=== PATIENT | male | born 1960 | race Caucasian/White ===

== ENCOUNTER 2021-08-21 08:00 | Inpatient (IN) ==
[2021-08-15 11:59] LABS: Basophils # (Auto) 0.07 K/mcL (0.00-0.30); Basophils % (Auto) 1.2 % (0.0-2.0); Eosinophils # (Auto) 0.22 K/mcL (0.00-0.70); Eosinophils % (Auto) 3.8 % (0.0-7.0); Hematocrit 43.7 % (40.1-51.0); Hemoglobin 15.4 g/dL (13.7-17.5); Lymphocytes # (Auto) 2.16 K/mcL (1.50-4.80); Lymphocytes % (Auto) 37.7 % (15.5-49.0); Mean Corpuscular HGB Conc 35.2 g/dL (31.0-36.0); Mean Platelet Volume 10.1 fL (7.4-10.4); Monocytes # (Auto) 0.63 K/mcL (0.10-0.90); Neutrophils % (Auto) 46.3 % (38.0-78.0); Platelet Count 203 K/mcL (140-440); RBC 4.55 M/mcL (4.63-6.08); Red Cell Distribution Width 13.6 % (11.5-14.5); WBC 5.7 K/mcL (4.5-11.0)
[2021-08-15 12:45] LABS: INR 0.9 (0.9-1.1); Prothrombin Time 12.9 sec (11.9-14.5)
[2021-08-15 14:22] LABS: Appearance,Urine CLEAR (Clear); Bilirubin,Urine Negative (Negative); Color,Urine YELLOW; Culture Indicated,Urine No; Glucose,Urine (UA) Negative (Negative); Ketones,Urine Negative (Negative); Leukocyte Esterase,Urine Negative /uL (Negative); Nitrate,Urine Negative (Negative); Protein,Urine Negative (Negative); Specific Gravity,Urine 1.012 (1.000-1.035); Urine Blood Negative (Negative); Urobilinogen,Urine Negative
[2021-08-15 14:35] LABS: Blood Urea Nitrogen 13 mg/dL (8-23); Calcium 8.8 mg/dL (8.6-10.4); Carbon Dioxide 24 mmol/L (22-30); Chloride 105 mmol/L (96-108); Glomerular Filtration Rate 71; Glucose 80 mg/dL (70-105)
--- NOTE | 2021-08-16 20:53 | EKG ---
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
[~2021-08-21 08:00] MED LIST: 0.9 % SODIUM CHLORIDE 250 ML IV SCH; ACETAMINOPHEN 500 MG TABLET PO SCH; CELECOXIB 200 MG CAPSULE PO SCH; PREGABALIN 75 MG CAPSULE PO SCH; ceFAZolin 3 GM in DEXTROSE 5% IN WATER 50 ML IV SCH; oxyCODONE 10 MG TAB.ER.12H PO SCH
[2021-08-21] MEDS ORDERED: TRANEXAMIC ACID 1,000 MG/10 ML VIAL ONE (08:14)
[2021-08-21] MEDS ORDERED: ePHEDrine 50 MG/5 ML SYRINGE (ANEST) IV ONE (08:14)
[2021-08-21] MEDS ORDERED: ROCURONIUM 10 MG/ML ML IV ONE (08:14)
[2021-08-21] MEDS ORDERED: GLYCOPYRROLATE 0.2 MG/ML VIAL IV ONE (08:14)
[2021-08-21] MEDS ORDERED: KETAMINE 50 MG/ML Syringe (ANEST) IV ONE (08:14)
[2021-08-21] MEDS ORDERED: MAGNESIUM SULFATE 2 GM/50 ML BAG IV ONE (08:14)
[2021-08-21] MEDS ORDERED: ONDANSETRON 4 MG/2 ML VIAL ONE (08:14)
[2021-08-21] MEDS ORDERED: ROPIVACAINE HCL/PF 20 ML VIAL IJ ONE (08:14)
[2021-08-21] MEDS ORDERED: SUGAMMADEX SODIUM 200 MG/2 ML VIAL IV ONE (08:14)
[2021-08-21] MEDS ORDERED: METOPROLOL TARTRATE 5 MG/5 ML VIAL IV ONE (08:14)
[2021-08-21] MEDS ORDERED: DEXAMETHASONE 4 MG/ML VIAL ONE (08:14)
[2021-08-21] MEDS ORDERED: PROPOFOL 200 MG/20 ML VIAL IV ONE (08:14)
[2021-08-21] MEDS ORDERED: LIDOCAINE HCL/PF 100 MG/5 ML SYRINGE IV ONE (08:14)
[2021-08-21] MEDS ORDERED: METOCLOPRAMIDE 10 MG/2 ML VIAL IV PRN (11:48)
[2021-08-21] MEDS ORDERED: LABETALOL 5 MG/ML ML IV PRN (11:48)
[2021-08-21] MEDS ORDERED: ACETAMINOPHEN 1,000 MG/100 ML BAG IV ONE (11:48)
[2021-08-21] MEDS ORDERED: NALOXONE HCL 0.4 MG/ML VIAL IV PRN (11:48)
[2021-08-21] MEDS ORDERED: fentaNYL 100 MCG/2 ML VIAL IV PRN (11:48)
[2021-08-21] MEDS ORDERED: ONDANSETRON 4 MG/2 ML VIAL IV PRN ×2 (11:48→12:48)
[2021-08-21] MEDS ORDERED: HYDROmorphone 0.5 MG/0.5 ML SYRINGE IV PRN (11:48)
[2021-08-21] MEDS ORDERED: IPRATROPIUM/ALBUTEROL 3 ML AMPUL.NEB NEB PRN (11:48)
[2021-08-21] MEDS ORDERED: ATROPINE SULFATE 0.4 MG/ML VIAL IV PRN (11:48)
[2021-08-21] MEDS ORDERED: ePHEDrine 50 MG/ML AMPUL IV PRN (11:48)
[2021-08-21] MEDS ORDERED: LACTATED RINGERS 250 ML IV PRN (11:48)
[2021-08-21] MEDS ORDERED: MEPERIDINE 25 MG/ML VIAL IV PRN (11:48)
[2021-08-21] MEDS ORDERED: METHOCARBAMOL 1,000 MG/10 ML VIAL IV PRN (11:48)
[2021-08-21] MEDS ORDERED: KETOROLAC 30 MG/ML VIAL IV PRN (11:48)
[2021-08-21] MEDS ORDERED: LACTATED RINGERS 1,000 ML IV SCH ×2 (12:00→13:00)
--- NOTE | 2021-08-21 12:47 | Discharge Plan ---
Discharge Instructions - DANI Patient Instructions Total Hip Protocol: Follow activity instructions as provided by Physical Therapy. Dressing Care: May shower in 2 days Discharge Plan Patient/Caregiver Discharge Instructions Activity: ambulate only with your walker and as instructed Diet: Regular Diet Prescriptions: No Action amlodipine 10 mg tablet 10 mg PO QDAY Qty: 90 0RF losartan 50 mg tablet 100 mg PO QHS Qty: 90 0RF (DME) C-pap and supplies See Rx Instructions .Route .MEDSUPPLY Qty: 1 0RF Rx Instructions: As directed aspirin 81 mg tablet,delayed release (DR/EC) 81 mg PO QDAY 0RF acetaminophen [Tylenol] 325 mg Tablet 650 mg PO Q6HP PRN (Reason: Per Pain Protocol/Fever > 101) Qty: 60 0RF trazodone 100 mg tablet 1 tab PO QHS PRN (Reason: Insomnia) 0RF Follow Up Plan Follow up with: Edilberto Johnston MD [Physician] - 09/05/21 8:40 am Patient Disposition: Home, Self-Care Rehab Potential: Good I certify that the patient requires SNF services: No Overall status at discharge: patient is progressing back to baseline Discharge Orders: Discharge Order (Routine); Ordered 08/21/21 Ordered By: Edilberto Johnston Discharge Comment: cc: right hip oa s/p dani
--- NOTE | 2021-08-21 12:47 | General Surgery Procedure Note ---
Date of procedure: Note initiated : 08/21/21 at 12:46 pm Service Date, if different from initiated Date: [] Pre-op diagnosis: right hip oa Post-op diagnosis: same Procedure: right anterior dani Findings: oa Anesthesia: spinal Surgeon: Edilberto Johnston Silo Erector: Sebas Forde Estimated blood loss: 200 Pathology: none sent Condition: stable Disposition: PACU
[2021-08-21] MEDS ORDERED: BISACODYL 10 MG SUPP.RECT PR PRN (12:48)
[2021-08-21] MEDS ORDERED: POLYETHYLENE GLYCOL 3350 17 GM PACKET PO PRN (12:48)
[2021-08-21] MEDS ORDERED: TRANEXAMIC ACID 1,000 MG/10 ML VIAL IV SCH (12:48)
[2021-08-21] MEDS ORDERED: MAGNESIUM HYDROXIDE 30 ML ORAL.SUSP PO PRN (12:48)
[2021-08-21] MEDS ORDERED: ONDANSETRON 4 MG ODT TABLET SL PRN (12:48)
[2021-08-21] MEDS ORDERED: FLEETS ADULT ENEMA PR PRN (12:48)
[2021-08-21 14:21] LABS: Hemoglobin 13.1 g/dL (13.7-17.5)
[2021-08-21] MEDS: KETOROLAC 30 MG/ML VIAL IV PRN (14:26)
--- NOTE | 2021-08-21 14:31 | XRay Report ---
CLINICAL INFORMATION: Right hip prostheses FINDINGS: The right hip prostheses is anatomically aligned. Pre-existing left total hip prostheses is anatomically aligned without loosening or infection. The 2 cm ossification overlying the left superior capsules previously seen.. There are no osseous abnormalities. Soft tissue swelling over the surgical site-as expected. IMPRESSION: Right hip prostheses in anatomic alignment. Interpreted and Authenticated by: Edilberto Matos 08/21/21
--- NOTE | 2021-08-21 15:06 | Operative Note ---
DATE OF OPERATION: 08/21/2021 PREOPERATIVE DIAGNOSIS: Degenerative joint disease, right hip. POSTOPERATIVE DIAGNOSIS: Degenerative joint disease, right hip. PROCEDURE: 1. Right anterior total hip arthroplasty. 2. VELYS computer navigation, right hip. SURGEON: Edilberto Johnston M.D. APPLIQUER SURGEON: Niko Forde PA-C. This providers expertise and technical skill were required throughout the case. The KAYLEIGH assisted with preoperative coordination, intraoperative retraction, wound closure, and dressing and splint application, as well as postoperative documentation and care coordination. ANESTHESIA: Spinal with LMA assist. ESTIMATED BLOOD LOSS: 250 mL. COMPLICATIONS: A nondisplaced fracture of the greater trochanter. SPECIMENS REMOVED: None DRAINS: None IMPLANTS: Biolox delta ceramic femoral head size +8.5 36 mm [place] hole eliminator PS [place] Altrex polyethylene acetabular liner neutral ACTIS DuoFix hip prosthesis cementless size 6 standard collar [place] Gription acetabular shell, 54 mm diameter INDICATIONS: The patient has had a long-standing history of worsening pain in the hip that has failed conservative treatment. Radiographs have confirmed advanced degenerative joint disease. After a long discussion about treatment options, the patient elected to proceed with an anterior total hip arthroplasty. The risks and benefits were discussed with the patient in detail including, but not limited to, the risks of anesthesia, problems with the heart or lungs related to anesthesia, infection, compromise or injury to the nerves and blood vessels, deep venous thrombosis, pulmonary embolism, pneumonia, continued pain after surgery, worsening pain or symptoms after surgery, swelling, loss of motion, instability, fracture, leg length discrepancy, and need for repeat surgery. DESCRIPTION OF PROCEDURE: The patient was seen in preanesthesia waiting room where all questions were answered and the correct side and site were identified and marked. The patient was then brought to the operating room and administered the anesthetic and given preoperative antibiotics. Anesthesia gave the patient 1 gram of tranexamic acid via an intravenous route. A timeout was then called. The patient was placed on the [place] table with all prominences well padded. The extremity was prepped and draped in the usual sterile fashion. C-arm radiographs were then taken of the pelvis and hip and transferred to [facility] for intraoperative assessment. A standard anterior approach was made. We dissected through the skin and subcutaneous tissue to the deep fascia. A self-retaining retractor was then placed. The fascia of the tensor fasciae latae was split in line with the incision and we dissected the muscle off the fascia superiorly and retracted the muscle of the tensor laterally. The fascia was then split under the rectus and the reflected head of the rectus for visualization. The lateral circumflex artery and veins were then visualized and cauterized. Two cobra retractors were placed along the femoral neck to visualize the capsule. A capsulotomy was then performed in an inverted L-shaped fashion and tagged for later repair. Cobra retractors were then placed inside the capsule and along the bone. C-arm was used to visualize the neck cut from the pre-surgical templated level off the lesser trochanter and the neck was cut with a saw and finished with an osteotome. The head was then removed. We next turned our attention to the acetabulum. Slight traction and external rotation were used on the femur to aid in visualization. Cobra retractors were placed on the acetabular rim and the labrum was excised. The fovea and ligamentum teres were also removed to visualize the medial wall. Sequential reaming was performed using direct visualization of anatomic landmarks in addition to the C-arm with VELYS for proper size, abduction, and version, while medializing the cup. A trial was placed followed by the final DePuy [place] acetabular press-fit shell, confirmed at approximately 45 degrees of abduction and 20 degrees of anteversion. The apex hole eliminator and neutral polyethylene acetabular liner were impacted, inspected, and found to be in appropriate position. Attention was next turned to the femur. Releases were performed along the medial neck and the posterior capsule along the greater trochanter to aid in visualization. The leg was dropped and adducted and retractors were placed for optimal visualization of the canal. The femoral canal was initially prepped and then broached using the DePuy Actis stem to a stable platform medial, lateral, and rotationally with the appropriate version. We then performed a calcar reaming off the broach and incised. There was a nondisplaced fracture of the greater trochanter, which was visualized. It was probed and found to be stable. I brought the leg up into reduction and then back out and it had not changed. I felt that this would be a stable fracture to watch, clinically. Trials were then placed and optimized for leg length and stability. We used fluoroscopy and the VELYS system to confirm our trials. Best stability, length, and offset characteristics were obtained with these sizes. We removed all trials and impacted the femoral stem to its broached location and placed the head. Final reduction was performed. Again, good stability, leg length, and offset characteristics were noted. VELYS was finalized to confirm our templated position. We irrigated with three liters of antibiotic saline and closed the capsule with #2 FiberWire. We closed the fascia with 0 Vicryl and the subcutaneous tissue and skin in layers out to khurram in the skin. A sterile pressure dressing was applied. All needle and sponge counts were correct. The patient was transferred to the recovery room in stable condition. TRACY:xochilt Job ID: [id number] Doc ID: [id number] Yeny Johnston MD
[2021-08-21] MEDS: 0.9 % SODIUM CHLORIDE 10 ML SYRINGE IV SCH ×2 (15:44→20:31)
[2021-08-21] MEDS: HYDROcodone/APAP 10/325MG TABLET PO PRN ×2 (16:11→20:27)
[2021-08-21] MEDS: morphine 4 MG/ML VIAL IV PRN ×2 (16:17→17:55)
[2021-08-21] MEDS: ceFAZolin 1 GM VIAL IV SCH (17:55)
--- NOTE | 2021-08-21 18:52 | XRay Report ---
CLINICAL INFORMATION: Right hip prostheses FINDINGS: Initial images from the OR show hip prostheses is anatomically aligned. Pre-existing left total hip prostheses is anatomically aligned without loosening or infection. The 2 cm ossification overlying the left superior capsules previously seen.. There are no osseous abnormalities. Soft tissue swelling over the surgical site-as expected. Total fluoroscopy time 0.5 minutes IMPRESSION: Right hip prostheses in anatomic alignment. Interpreted and Authenticated by: Edilberto Matos 08/21/21
[2021-08-21] MEDS: DOCUSATE SODIUM 100 MG CAPSULE PO SCH (20:28)
[2021-08-21] MEDS: ASPIRIN 81 MG TAB.CHEW PO SCH (20:28)
[2021-08-21] MEDS: LOSARTAN 50 MG TABLET PO SCH (20:28)
[2021-08-21] MEDS: SENNOSIDES 1 TABLET PO SCH (20:28)
[2021-08-22] MEDS: HYDROcodone/APAP 10/325MG TABLET PO PRN ×6 (02:06→21:49)
[2021-08-22] MEDS: ceFAZolin 1 GM VIAL IV SCH (02:08)
[2021-08-22] MEDS: 0.9 % SODIUM CHLORIDE 10 ML SYRINGE IV SCH ×2 (06:02→21:49)
[2021-08-22 06:42] LABS: Hemoglobin 11.1 g/dL (13.7-17.5)
--- NOTE | 2021-08-22 07:57 | Orthopedic Progress Note ---
SUBJECTIVE Subjective Patient information: Note initiated : 08/22/21 at 7:54 am Service Date, if different from initiated Date: [] Patient: Ander Ortiz 61 y/o M admitted on for Right Total Hip Arthroplasty Anterior . Chief Complaint: [Status post right total hip arthroplasty. ] Pertinent ROS: 10 point review of systems performed and is negative except for mentioned. Constitutional Vitals: Vital Signs Temp Pulse Resp BP Pulse Ox 97.5 F 71 20 133/75 95 08/22/21 07:28 08/22/21 07:28 08/22/21 07:28 08/22/21 07:28 08/22/21 07:28 Period Temp Pulse Resp BP Sys/Guevara Pulse Ox Last 24 Hr 96.6 F-98.7 F 68-86 7-20 102-164/68-91 94-100 Intake and Output 08/21/21 08/22/21 08/22/21 21:59 05:59 13:59 Intake Total 1484 800 Output Total 225 375 Balance 1259 425 Intake & Output: Intake & Output 08/21/21 08/22/21 08/22/21 21:59 05:59 13:59 Intake Total 1484 800 Output Total 225 375 Balance 1259 425 Intake: IV 74 Lactated Ringers 1,000 ml @ 20 74 mls/hr IV .Q24H [facility] Rx#: [id number] Oral 1310 800 IV - Manual Only 100 Output: Void Amount 225 375 Other: Meal Dinner Percent of Meal Consumed 100% Feeding Ability Assist with Tray Set Up OBJ DATA Labs CBC & Chem 7: 08/22/21 05:39 08/15/21 10:44 Labs: Abnormal Lab Results 08/22/21 08/21/21 05:39 13:40 Hgb 11.1 L 13.1 L Hct 32.0 L 37.0 L Meds: Medications Acetaminophen (Acetaminophen 325 Mg Tablet) 650 mg PO Q6HP PRN PRN Reason: Per Pain Protocol/Fever > 101 Hydrocodone Bitart/Acetaminophen (Hydrocodone/Apap 10/325mg Tablet) 1 - 2 tab PO Q4HP PRN; Protocol PRN Reason: Per Pain Protocol Last Admin: 08/22/21 07:37 Dose: 1 tab Documented by: Amlodipine Besylate (Amlodipine 10 Mg Tablet) 10 mg PO QDAY [facility] Aspirin (Aspirin 81 Mg Tab.Chew) 81 mg PO BID [facility] Last Admin: 08/21/21 20:28 Dose: 81 mg Documented by: Bisacodyl (Bisacodyl 10 Mg Supp.Rect) 10 mg ID Q2-3DAYS PRN PRN Reason: Constipation Docusate Sodium (Docusate Sodium 100 Mg Capsule) 100 mg PO BID [facility] Last Admin: 08/21/21 20:28 Dose: 100 mg Documented by: Ketorolac Tromethamine (Ketorolac 30 Mg/Ml Vial) 30 mg IV Q6HP PRN; Protocol PRN Reason: Per Pain Protocol Stop: 08/23/21 12:49 Last Admin: 08/21/21 14:26 Dose: 30 mg Documented by: Losartan Potassium (Losartan 50 Mg Tablet) 100 mg PO QHS [facility] Last Admin: 08/21/21 20:28 Dose: 100 mg Documented by: Magnesium Hydroxide (Magnesium Hydroxide 30 Ml Oral.Susp) 30 ml PO BIDP PRN PRN Reason: Constipation Methocarbamol (Methocarbamol 750 Mg Tablet) 750 mg PO Q6HP PRN PRN Reason: Muscle Spasm Morphine Sulfate (Morphine 4 Mg/Ml Vial) 2 - 6 mg IV Q1HP PRN; Protocol PRN Reason: Per Pain Protocol Last Admin: 08/21/21 17:55 Dose: 4 mg Documented by: Ondansetron HCl (Ondansetron 4 Mg/2 Ml Vial) 4 mg IV Q4HP PRN; Protocol PRN Reason: Nausea And Vomiting Ondansetron HCl (Ondansetron 4 Mg Odt Tablet) 4 mg SL Q4HP PRN; Protocol PRN Reason: Nausea And Vomiting Polyethylene Glycol (Polyethylene Glycol 3350 17 Gm Packet) 17 gm PO DAILYP PRN PRN Reason: Constipation Senna (Sennosides 1 Tablet) 2 tab PO HS [facility] Last Admin: 08/21/21 20:28 Dose: 2 tab Documented by: Sodium Biphosphate/Sodium Phosphate (Fleets Adult Enema) 1 dose ID Q3-4DAYS PRN PRN Reason: Constipation Sodium Chloride (0.9 % Sodium Chloride 10 Ml Syringe) 10 ml IV Q8 [facility] Last Admin: 08/22/21 06:02 Dose: 10 ml Documented by: Trazodone HCl (Trazodone Hcl 100 Mg Tablet) 100 mg PO HSP PRN PRN Reason: Insomnia A/P Narrative A/P Narrative: Patient seen and examined this a.m. Awake alert, conversant, seated at bedside. Has some expected postoperative discomfortBut feels it is well-managed on current regimen. Dressing at right lower extremity is clean and dry, somewhat disheveled we'll order dressing change today. Both lower show use are warm, well perfused and neurovascularly intact. Icepack and SCDs in place. Endorses some weightbearing and ambulation about his room. He is weightbearing as tolerated with walker for assistance. PT/OT, pain control. Plan is for expected discharge today to patient's own home where he states he has assistance with follow-up at [facility] in 10-14 days. Time Spent With Patient Time: Total time spent is greater than 50% in coordination of care (as documented) at patient's floor/unit and/or counseling patient:
[2021-08-22] MEDS: morphine 4 MG/ML VIAL IV PRN ×5 (08:30→21:44)
[2021-08-22] MEDS: amLODIPine 10 MG TABLET PO SCH (09:10)
[2021-08-22] MEDS: ASPIRIN 81 MG TAB.CHEW PO SCH ×2 (09:10→21:49)
[2021-08-22] MEDS: DOCUSATE SODIUM 100 MG CAPSULE PO SCH ×2 (09:10→21:49)
--- NOTE | 2021-08-22 09:22 | XRay Report ---
CLINICAL INFORMATION: Status post right total hip replacement. Trauma COMPARISON: None. FINDINGS: Right total hip prosthesis remains in anatomic alignment. There is now a sagittally oriented fracture through the lesser trochanteric base with displacement of the trochanteric fragment approximately 1 cm medially and anteriorly. Older left total hip fracture remains anatomically aligned. Small amount of left heterotopic ossification seen. Sacroiliac joints are normal. Soft tissues findings over the surgical site as expected. IMPRESSION: Sagittal displaced fracture of the right lesser trochanter base Interpreted and Authenticated by: Edilberto Matos 08/22/21
[2021-08-22] MEDS: METHOCARBAMOL 750 MG TABLET PO PRN (16:36)
[2021-08-22] MEDS: LACTATED RINGERS 1,000 ML IV SCH (19:19)
--- NOTE | 2021-08-22 20:09 | Orthopedic Consult Note ---
HPI Data of Consult Patient: known to practice within the last 3 years Consult date: 08/22/21 Primary Care Provider: JUAN Osborne Consult Narrative Patient Information: Note initiated : 08/22/21 at 7:49 pm Service Date, if different from initiated Date: [] Patient: Ander Ortiz 61 y/o M admitted on 08/22/21 for Right Total Hip Arthroplasty Anterior . Chief Complaint: [POD 1 Right anterior total hip arthroplasty, right periprosthetic hip fracture] Chief complaint: POD 1 Right anterior STEPHEN, right periprosthetic hip fracture cc:: CC: Edilberto Johnston Review of Systems All systems: reviewed and no additional remarkable complaints except as stated Musculoskeletal Musculoskeletal: Present deformity, joint swelling and limited range of motion PFSH PFSH All Active Problems Sleep apnea (Acute) Fall (Acute) Bimalleolar ankle fracture (Acute) Intermittent chest pain (Acute) Palpitation (Acute) TIA (transient ischemic attack) (Acute) Right sciatic nerve pain (Acute) Eczema (Acute) Acute viral syndrome (Acute) Right hip pain (Acute) Colitis (Chronic) Suicidal ideation (Chronic) Alcohol intoxication (Chronic) Hypokalemia (Chronic) Hypocalcemia (Chronic) Elevated LFTs (Chronic) Morbid obesity (Chronic) History of diverticulitis (Chronic) History of colonoscopy (Chronic ~2017) Anxiety (Chronic ~2015) Acid reflux (Chronic) Diverticulitis (Chronic ~01/2017) Depression (Chronic) History of cholecystectomy (Chronic ~05/2017) Gout (Chronic ~2013) High blood pressure (Chronic ~2001) High cholesterol (Chronic) Joint pain (Chronic) Stroke (Chronic ~10/2018) Alcohol abuse (Chronic) History of knee surgery (Chronic) History of hernia repair (Chronic ~1978) Hernia (Chronic) History of appendectomy (Chronic ~1989) History of hip replacement (Chronic ~2016) Back pain (Acute) Recurrent umbilical hernia (Acute) Hypertension (Acute) Acute bacterial sinusitis (Acute) Diarrhea (Acute) Abdominal pain (Acute) Incisional hernia (Acute) Lumbar spondylolysis (Acute) Medical History Abdominal pain Secondary to incisional hernia Acid reflux Alcohol abuse Sober since 05/17/2019, seeing Tatum Regina, [facility] Anxiety (~2015) seeing Tatum Tapia, on sertraline Back pain MRI 02/02/2016: Impression: 1. Very minimal inferior left neural foramen narrowing at L4-5 and L5-S1 but recommend clinical correlation for any left L4-L5 nerve root symptoms. 2. Old moderate anterior wedge compression of the T11 vertebral body. Depression seeing Tatum Tapia, Diarrhea Diverticulitis (~01/2017) Gout (~2013) 02/24/2015 Xray: IMPRESSION: Right 1st MTPJ soft tissue swelling can be seen in gout. No arthritic osseous change. On Allopurinol Hernia 1978; 2004 High blood pressure (~2001) Amlodopine 10mg High cholesterol Cholesterol 10/26/2019: 184, Triglycerides 97, HDL 42, LDL 123 11/04/2018: Cholesterol 234, Triglycerides 250, HDL 54, LDL 131 He's going to stop his statin History of diverticulitis Never had regular GI followup Hx of transient ischemic attack (TIA) Hypertension Joint pain Lumbar spondylolysis Morbid obesity BMI 45.8...1-28-20 BMI: 41.8 Long discussion with patient about recurrence after incisional hernia repair. Discussed his increased risk of recurrence with a BMI greater than 35. He verbalizes understanding of this, he will continue on his diet modification and exercise and continue to try to lose weight both before and after the surgery. Right hip pain Sleep apnea Wears a CPAP Stroke (~10/2018) Chads score =3 Vertigo Surgical History H/O exploratory laparotomy (~06/20/20) Hernia Dr Blackwell History of appendectomy (~1989) History of cholecystectomy (~05/2017) History of colonoscopy (~2017) History of colostomy Due to diverticulitis rupture History of colostomy reversal (~05/2018) History of hernia repair (~1978) History of hip replacement (~2016) History of knee surgery 1978; 2009 History of ventral hernia repair 06/20/2020 Family History Mother Lung cancer High blood pressure Father Lung cancer High blood pressure Brother High blood pressure Sister High blood pressure Social History household members: spouse housing: apartment marital status: occupational 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 and disabled 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 other: : [place] physical activity: 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 alcohol intake frequency: 0-2 drinks per day counseling provided: support program substance use type: does not use concepcion/advent: [facility] [employer] Home Medications and Allergies Home Medications Medication Instructions Recorded Confirmed Type acetaminophen 325 mg tablet 650 mg PO Q6HP PRN #60 tab 06/21/20 08/21/21 Rx (Tylenol) amlodipine 10 mg tablet 10 mg PO QDAY #90 tab 12/28/20 08/21/21 Rx losartan 50 mg tablet 100 mg PO QHS #90 tab 12/28/20 08/21/21 Rx aspirin 81 mg tablet,delayed 81 mg PO QDAY 03/28/21 08/21/21 History release trazodone 100 mg tablet 1 tab PO QHS PRN 04/28/21 08/21/21 History C-pap and supplies #1 ea 07/25/21 Rx aspirin 81 mg tablet,delayed 81 mg PO BID #30 tab 08/21/21 Rx release (Aspirin Low Dose) hydrocodone 10 mg-acetaminophen 1 - 2 tab PO Q4H PRN #60 tab 08/21/21 Rx 325 mg tablet Allergies Allergy/AdvReac Type Severity Reaction Status Date / Time Latex, Natural Rubber AdvReac Intermediate Rash Verified 08/21/21 08:10 Physical Examination Narrative Narrative: Narrative: A/P Narrative A/P Narrative: Patient is a 59-year-old male postop day 1 right anterior total hip arthroplasty. See operative report for full description of procedure. Patient was ambulating with physical therapy morning after surgery when a painful pop was felt and heard. Patients ambulation was then extremely limited with exacerbated pain. Imaging revealed a periprosthetic fracture at the lesser trochanteric base with displacement And subsidence of the hip prosthesis. Plan of Treatment: On exam patient is seated in bed in no acute distress. Lungs are equal and clear bilaterally heart normal rate and rhythm. At the right hip and pelvis area there is tenderness to palpation and also pain with any range of motion. Options were presented to the patient including surgical and nonsurgical. Nonsurgical, Including bracing and watchful waiting carries risk of nonunion, loss of range of motion and ambulation, risk of injury to adjacent structures including nerves and blood vessels and increased pain. Surgical option consists of Right total hip arthroplasty revision open reduction internal fixation via possible [place] hip replacement and cable fixation At this time patient is interested in surgery. Plan is for right total hip arthroplasty revision open reduction internal fixation via possible [place] hip replacement and cable fixation To take place semi-emergently with Dr. Johnston surgeon and Niko VICTOR. Surgical risks were explained to the patient including but not limited to: Pain, bleeding, infection, injury to adjacent structures, implant failure, need for further surgery, stroke risk, cardiac complications including heart attack or VA, pulmonary complications including pulmonary embolism and pneumonia, ane sthesia reactions and . Patient understands these risks and wishes to proceed with surgery. Time Spent With Patient Time: Total time spent is greater than 50% in coordination of care (as documented) at patient's floor/unit and/or counseling patient:
[2021-08-22] MEDS: SENNOSIDES 1 TABLET PO SCH (21:48)
[2021-08-22] MEDS: LOSARTAN 50 MG TABLET PO SCH (21:49)
[2021-08-23] MEDS: METHOCARBAMOL 750 MG TABLET PO PRN ×2 (00:41→21:36)
[2021-08-23] MEDS: morphine 4 MG/ML VIAL IV PRN ×5 (02:15→13:41)
[2021-08-23] MEDS: LACTATED RINGERS 1,000 ML IV SCH ×4 (02:21→21:40)
[2021-08-23] MEDS: 0.9 % SODIUM CHLORIDE 10 ML SYRINGE IV SCH ×3 (05:29→21:37)
[2021-08-23] MEDS: HYDROcodone/APAP 10/325MG TABLET PO PRN ×2 (06:10→21:36)
[2021-08-23 06:44] LABS: Hematocrit 29.8 % (40.1-51.0); Hemoglobin 10.1 g/dL (13.7-17.5)
[2021-08-23] MEDS: KETOROLAC 30 MG/ML VIAL IV PRN (07:38)
[2021-08-23] MEDS: DOCUSATE SODIUM 100 MG CAPSULE PO SCH ×2 (08:10→21:36)
[2021-08-23] MEDS: amLODIPine 10 MG TABLET PO SCH (08:10)
[2021-08-23] MEDS: ASPIRIN 81 MG TAB.CHEW PO SCH ×2 (10:30→21:38)
[2021-08-23] MEDS ORDERED: ceFAZolin 3 GM in DEXTROSE 5% IN WATER 50 ML IV SCH (16:30)
[2021-08-23] MEDS ORDERED: MAGNESIUM SULFATE 2 GM/50 ML BAG IV ONE (16:50)
[2021-08-23] MEDS ORDERED: DEXAMETHASONE 10 MG/ML VIAL ONE (16:50)
[2021-08-23] MEDS ORDERED: HYDROmorphone 1 MG/ML SYRINGE ONE (16:50)
[2021-08-23] MEDS ORDERED: PHENYLephrine 1 MG/10 ML SYRINGE (ANEST) ONE (16:50)
[2021-08-23] MEDS ORDERED: fentaNYL 250 MCG/5 ML VIAL IV ONE (16:50)
[2021-08-23] MEDS ORDERED: SUCCINYLCHOLINE 20 MG/ML ML IV ONE (16:50)
[2021-08-23] MEDS ORDERED: PROPOFOL 200 MG/20 ML VIAL IV ONE (16:50)
[2021-08-23] MEDS ORDERED: LIDOCAINE HCL/PF 100 MG/5 ML SYRINGE IV ONE (16:50)
[2021-08-23] MEDS ORDERED: TRANEXAMIC ACID 1,000 MG/10 ML VIAL ONE (16:50)
[2021-08-23] MEDS ORDERED: KETAMINE 50 MG/ML Syringe (ANEST) IV ONE (16:50)
[2021-08-23] MEDS ORDERED: ONDANSETRON 4 MG/2 ML VIAL ONE (16:50)
[2021-08-23] MEDS ORDERED: MEPERIDINE 25 MG/ML VIAL IV PRN (19:13)
[2021-08-23] MEDS ORDERED: ONDANSETRON 4 MG/2 ML VIAL IV PRN (19:13)
[2021-08-23] MEDS ORDERED: ACETAMINOPHEN 1,000 MG/100 ML BAG IV ONE (19:13)
[2021-08-23] MEDS ORDERED: LACTATED RINGERS 250 ML IV PRN (19:13)
[2021-08-23] MEDS ORDERED: PROMETHAZINE 25 MG/ML VIAL IV PRN (19:13)
[2021-08-23] MEDS ORDERED: diphenhydrAMINE 50 MG/ML VIAL IV PRN (19:13)
[2021-08-23] MEDS ORDERED: HYDROmorphone 0.5 MG/0.5 ML SYRINGE IV PRN (19:13)
[2021-08-23] MEDS ORDERED: NALOXONE HCL 0.4 MG/ML VIAL IV PRN (19:13)
[2021-08-23] MEDS ORDERED: IPRATROPIUM/ALBUTEROL 3 ML AMPUL.NEB NEB PRN (19:13)
[2021-08-23] MEDS ORDERED: LACTATED RINGERS 1,000 ML IV SCH (19:15)
--- NOTE | 2021-08-23 19:26 | General Surgery Procedure Note ---
Date of procedure: Note initiated : 08/23/21 at 7:23 pm Service Date, if different from initiated Date: [] Pre-op diagnosis: right hip periprosthetic femur fracture Post-op diagnosis: same Procedure: right hip ORIF proximal femure with revision of femoral component Anesthesia: NYLA Surgeon: Edilberto Johnston Quality Control Assistant: Sebas Forde Estimated blood loss: 500 Pathology: none sent Condition: stable Disposition: PACU
[2021-08-23] MEDS: fentaNYL 100 MCG/2 ML VIAL IV PRN ×3 (20:33→20:52)
[2021-08-23] MEDS: SENNOSIDES 1 TABLET PO SCH (21:36)
[2021-08-23] MEDS: LOSARTAN 50 MG TABLET PO SCH (21:36)
[2021-08-24] MEDS: HYDROcodone/APAP 10/325MG TABLET PO PRN ×5 (01:37→21:24)
[2021-08-24] MEDS: LACTATED RINGERS 1,000 ML IV SCH ×2 (03:38→05:45)
--- NOTE | 2021-08-24 04:06 | XRay Report ---
CLINICAL INFORMATION: Right hip prosthesis revision COMPARISON: 08/22/2021 FINDINGS: Intraoperative film shows right hip revision less the prosthetic femoral head. Alignment appears anatomic. Lateral plate and cerclage wires transfix the lesser trochanteric fracture which is anatomically aligned. Old left hip prosthesis is unremarkable. Soft tissue swelling over the surgical site. IMPRESSION: Lesser trochanteric fracture i reduced anatomic alignment and transfixed by lateral plate and screws. Right total hip revision shows anatomic alignment. Interpreted and Authenticated by: Edilberto Matos 08/24/21
--- NOTE | 2021-08-24 04:13 | XRay Report ---
CLINICAL INFORMATION: Right hip prosthesis revision COMPARISON: 08/22/2021 FINDINGS: Right total hip revision appears anatomically aligned. Lateral plate and cerclage wires transfix the lesser trochanteric fracture which is anatomically aligned. Old left hip prosthesis is unremarkable. Soft tissue swelling over the surgical site. IMPRESSION: Lesser trochanteric fracture reduced to anatomic alignment and transfixed by lateral plate and screws. Right total hip revision shows anatomic alignment. Interpreted and Authenticated by: Edilberto Matos 08/24/21
[2021-08-24] MEDS: 0.9 % SODIUM CHLORIDE 10 ML SYRINGE IV SCH ×3 (05:45→20:15)
--- NOTE | 2021-08-24 06:18 | EKG ---
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
--- NOTE | 2021-08-24 07:52 | General Surgery Progress Note ---
SUBJECTIVE Subjective Patient information: Note initiated : 08/24/21 at 7:49 am Service Date, if different from initiated Date: [] Patient: Ander Ortiz 61 y/o M admitted on 08/22/21 for Right Total Hip Arthroplasty Anterior . Chief Complaint: [feeling much better today] Principal diagnosis: right proximal femur fracture Interval history: ambulated in [place] this am. feeling much better Constitutional Vitals: Vital Signs Temp Pulse Resp BP Pulse Ox 97.9 F 69 16 118/64 95 08/24/21 07:03 08/24/21 07:03 08/24/21 07:03 08/24/21 07:03 08/24/21 07:03 Period Temp Pulse Resp BP Sys/Guevara Pulse Ox Last 24 Hr 97.5 F-98.6 F 68-121 10-20 99-169/32-157 89-99 Intake and Output 08/23/21 08/24/21 08/24/21 21:59 05:59 13:59 Intake Total 3050 1800 Output Total 1075 1175 Balance 1975 625 Weight 315 lb 323 lb 9.6 oz Intake & Output: Intake & Output 08/23/21 08/24/21 08/24/21 21:59 05:59 13:59 Intake Total 3050 1800 Output Total 1075 1175 Balance 1975 625 Weight 315 lb 323 lb 9.6 oz Intake: IV 1150 1000 Lactated Ringers 1,000 ml @ 125 1000 1000 mls/hr IV .Q8H RAZ Rx#: [id number] Ancef 3 gm In Dextrose 5% in 50 Water 50 ml @ 100 mls/hr IV PREOP RAZ Rx#:[id number] Oral 800 IV - Manual Only 1900 Output: Void Amount 575 1175 Estimated Blood Loss 500 Other: Urine Appearance Clear Clear Urine Color Dark Yellow Bright Yellow Urine Odor Normal Extremities Exam Extremities exam: Present joint swelling, normal capillary refill, tenderness, Foot pink and warm and neurovascular intact; Absent calf tenderness, full ROM or pedal edema A/P Narrative Plan of Treatment: pod 1 s/p orif proximal femur fx with revision femoral stem 50% weight bearing pt pain control dvt prophylaxis d/c planning - home when cleared by pt check hgb/hct Time Spent With Patient Time: Total time spent is greater than 50% in coordination of care (as documented) at patient's floor/unit and/or counseling patient:
[2021-08-24] MEDS: amLODIPine 10 MG TABLET PO SCH (07:55)
[2021-08-24] MEDS: DOCUSATE SODIUM 100 MG CAPSULE PO SCH ×2 (07:55→20:17)
[2021-08-24] MEDS: ASPIRIN 81 MG TAB.CHEW PO SCH ×2 (07:55→20:17)
[2021-08-24] MEDS: KETOROLAC 30 MG/ML VIAL IV PRN (09:02)
[2021-08-24] MEDS: ACETAMINOPHEN 325 MG TABLET PO PRN (20:16)
[2021-08-24] MEDS: LOSARTAN 50 MG TABLET PO SCH (20:17)
[2021-08-24] MEDS: METHOCARBAMOL 750 MG TABLET PO PRN (20:17)
[2021-08-24] MEDS: SENNOSIDES 1 TABLET PO SCH (20:17)
[2021-08-24] MEDS: traZODone HCL 100 MG TABLET PO PRN (21:25)
[2021-08-25] MEDS: HYDROcodone/APAP 10/325MG TABLET PO PRN ×5 (02:43→19:03)
[2021-08-25] MEDS: METHOCARBAMOL 750 MG TABLET PO PRN ×4 (02:44→23:37)
[2021-08-25] MEDS: 0.9 % SODIUM CHLORIDE 10 ML SYRINGE IV SCH ×4 (05:39→23:38)
[2021-08-25 06:10] LABS: Hematocrit 21.7 % (40.1-51.0); Hemoglobin 7.4 g/dL (13.7-17.5)
[2021-08-25] MEDS: amLODIPine 10 MG TABLET PO SCH (08:17)
[2021-08-25] MEDS: ASPIRIN 81 MG TAB.CHEW PO SCH ×2 (08:17→21:01)
[2021-08-25] MEDS: DOCUSATE SODIUM 100 MG CAPSULE PO SCH ×2 (08:17→21:01)
[2021-08-25] MEDS: LACTATED RINGERS 1,000 ML IV SCH ×2 (08:18→08:19)
--- NOTE | 2021-08-25 11:39 | General Surgery Progress Note ---
SUBJECTIVE Subjective Patient information: Note initiated : 08/25/21 at 11:38 am Service Date, if different from initiated Date: [] Patient: Ander Ortiz 61 y/o M admitted on 08/22/21 for Right Total Hip Arthroplasty Anterior . Chief Complaint: [right hip surgery] Principal diagnosis: right proximal femur fracture Interval history: slow to mobilize but doing a little better today Constitutional Vitals: Vital Signs Temp Pulse Resp BP Pulse Ox 98.9 F 80 18 106/58 95 08/25/21 11:07 08/25/21 11:07 08/25/21 11:07 08/25/21 11:07 08/25/21 11:07 Period Temp Pulse Resp BP Sys/Guevara Pulse Ox Last 24 Hr 98 F-99 F 80-85 - 102-135/51-69 92-95 Intake and Output 08/24/21 08/25/21 08/25/21 21:59 05:59 13:59 Intake Total 800 Output Total 200 1000 Balance -200 -200 Weight 315 lb 12.8 oz Intake & Output: Intake & Output 08/24/21 08/25/21 08/25/21 21:59 05:59 13:59 Intake Total 800 Output Total 200 1000 Balance -200 -200 Weight 315 lb 12.8 oz Intake: Oral 800 Output: Void Amount 200 1000 Other: Urine Appearance Clear Clear Urine Color Dark Yellow Bright Yellow Stool Size Large Stool Color Brown Yellow Stool Consistency Loose # Voids 1 # Bowel Movements 1 Extremities Exam Extremities exam: Present joint swelling, normal capillary refill, normal inspection, tenderness, Foot pink and warm and neurovascular intact; Absent calf tenderness or full ROM A/P Narrative Plan of Treatment: pod 2 s/p orif proximal femur fx with revision femoral stem 50% weight bearing pt pain control dvt prophylaxis d/c planning - home when cleared by pt Time Spent With Patient Time: Total time spent is greater than 50% in coordination of care (as documented) at patient's floor/unit and/or counseling patient:
[2021-08-25] MEDS: SENNOSIDES 1 TABLET PO SCH (21:01)
[2021-08-25] MEDS: LOSARTAN 50 MG TABLET PO SCH (21:01)
[2021-08-25] MEDS: traZODone HCL 100 MG TABLET PO PRN (21:02)
[2021-08-25] MEDS: KETOROLAC 30 MG/ML VIAL IV PRN (23:37)
[2021-08-26] MEDS: 0.9 % SODIUM CHLORIDE 10 ML SYRINGE IV SCH (05:06)
[2021-08-26] MEDS: HYDROcodone/APAP 10/325MG TABLET PO PRN ×2 (07:21→13:53)
[2021-08-26] MEDS: ACETAMINOPHEN 325 MG TABLET PO PRN (07:22)
[2021-08-26] MEDS: KETOROLAC 30 MG/ML VIAL IV PRN (07:24)
[2021-08-26 07:45] LABS: Hematocrit 21.9 % (40.1-51.0); Hemoglobin 7.3 g/dL (13.7-17.5)
--- NOTE | 2021-08-26 08:22 | General Surgery Progress Note ---
SUBJECTIVE Subjective Patient information: Note initiated : 08/26/21 at 8:20 am Service Date, if different from initiated Date: [] Patient: Ander Ortiz 61 y/o M admitted on 08/22/21 for Right Total Hip Arthroplasty Anterior . Chief Complaint: [follow up pod 3] Principal diagnosis: right proximal femur fracture Interval history: doing better today. still hasn't got up with pt this am Constitutional Vitals: Vital Signs Temp Pulse Resp BP Pulse Ox 100.2 F H 84 18 130/69 95 08/26/21 07:22 08/26/21 02:58 08/26/21 02:58 08/26/21 02:58 08/26/21 02:58 Period Temp Pulse Resp BP Sys/Guevara Pulse Ox Last 24 Hr 98.2 F-100.2 F 80-93 16-18 100-130/55-69 90-95 Intake and Output 08/25/21 08/26/21 08/26/21 21:59 05:59 13:59 Intake Total 550 Output Total 350 750 Balance -350 -200 Weight 318 lb Intake & Output: Intake & Output 08/25/21 08/26/21 08/26/21 21:59 05:59 13:59 Intake Total 550 Output Total 350 750 Balance -350 -200 Weight 318 lb Intake: Oral 550 Output: Void Amount 350 750 Other: Meal Dinner Percent of Meal Consumed 100% Feeding Ability Independent Urine Appearance Clear Urine Color Straw Extremities Exam Extremities exam: Present full ROM, joint swelling, normal capillary refill, normal inspection, Foot pink and warm and neurovascular intact; Absent calf tenderness, pedal edema or tenderness A/P Narrative Plan of Treatment: pod 3 s/p orif proximal femur fx with revision femoral stem 50% weight bearing pt pain control will continue to watch hgb/ hct. has stabilized and will recheck at 2 weeks dvt prophylaxis d/c planning - home when cleared by pt Time Spent With Patient Time: Total time spent is greater than 50% in coordination of care (as documented) at patient's floor/unit and/or counseling patient:
[2021-08-26] MEDS: DOCUSATE SODIUM 100 MG CAPSULE PO SCH (08:30)
[2021-08-26] MEDS: ASPIRIN 81 MG TAB.CHEW PO SCH (08:30)
[2021-08-26] MEDS: amLODIPine 10 MG TABLET PO SCH (08:30)
[2021-08-26] MEDS: METHOCARBAMOL 750 MG TABLET PO PRN (13:54)
--- NOTE | 2021-08-27 08:45 | Operative Note ---
DATE OF OPERATION: 08/23/2021 PRE-OP DIAGNOSIS: Periprosthetic fracture right femur, status post hip arthroplasty. POST-OP DIAGNOSIS: Periprosthetic fracture right femur, status post hip arthroplasty. PROCEDURE: Right hip revision total hip arthroplasty, femoral component with open reduction and internal fixation of proximal femur. SURGEON: Edilberto Johnston M.D. AGING BOX HAND SURGEON: Niko Forde PA-C. The PA's assistance was required for the safe and efficient completion of the entire case. This providers expertise and technical skill were required throughout the case. The PA assisted with preoperative coordination, intraoperative retraction, limb manipulation, wound closure, dressing application, as well as post-operative documentation and care coordination. ANESTHESIA: Spinal with LMA assist. ESTIMATED BLOOD LOSS: 500 mL. COMPLICATIONS: None noted. SPECIMENS REMOVED: None. DRAINS: None. IMPLANTS: DePuy Corail size 16 press-fit standard neck DePuy Delta ceramic head 36 mm, +5. Lo and Nephew Accord plate, standard eight cable length with a total of six cables INDICATIONS: The patient had a total hip arthroplasty. Postoperatively, he was walking down some stairs and felt a pop and was found to have a periprosthetic femur fracture with a probable unstable stem. We talked about different options and elected to proceed with revision total hip arthroplasty with open reduction and internal fixation of the proximal femur. The risks and benefits were discussed with the patient in detail including, but not limited to, the risks of anesthesia, problems with the heart or lungs related to anesthesia, infection, compromise or injury to the nerves and blood vessels, deep venous thrombosis, pulmonary embolism, pneumonia, continued pain after surgery, worsening pain or symptoms after surgery, swelling, loss of motion, instability, leg length discrepancy, and need for repeat surgery. DESCRIPTION OF PROCEDURE: The patient was seen in pre-anesthesia waiting room where all questions were answered and the correct side and site were identified and marked. The patient was then brought to the operating room and administered the anesthetic and given pre-operative antibiotics. A time-out was then called. The patient was placed in the lateral decubitus position with all prominences well padded using the [place] frame and the extremity was prepped and draped in the usual sterile fashion. Anesthesia gave the patient 1 gram of Tranexamic Acid via an intravenous route. A standard posterior approach was made. We dissected through the skin and subcutaneous tissue to the deep fascia. The deep fascia was split in line with the incision and a Charnley retractor was placed. We exposed, tagged, and incised the short external rotators and piriformis tendon and retracted them posteriorly to help protect the sciatic nerve which was palpated throughout the case. We then performed a T-capsulotomy and tagged the capsule edges. Prior to dislocating the hip, we set a length and offset gauge from a Steinmann pin in the iliac wing to a sohail on the greater trochanter. The hip was then dislocated and we found that the stem was unstable and removed from the femur. It was a comminuted upper proximal femur fracture. I was able to reduce all the fracture fragments and then I split through the vastus lateralis and we placed a Lo and Nephew Accord standard trochanteric outbound telemarketing representative plate, impacting this into the proximal trochanter and then placed six cables around the fracture, reducing it anatomically. At this point, we reamed and then broached up to a size 16. We then placed a trial stem with a head. The hip was reduced. I used a flat plate x-ray to confirm that the leg lengths were symmetric and hardware was in good position. We removed all trials and thoroughly irrigated. We then impacted the femoral stem to its broached location and placed the head. Final reduction was performed. Again, good stability, leg length, and offset characteristics were noted. We irrigated with three liters of antibiotic saline. We closed the capsule with #2 FiberWire. We closed the fascia with a combination of #1 Strata-fix and #0 Vicryl. We closed the subcutaneous tissue and skin in layers out to khurram on the skin. A sterile pressure dressing and abduction wedge was applied. All needle and sponge counts were correct. The patient was transferred to the recovery room in stable condition. TRACY:neo Job ID: [id number] Doc ID: [id number] Yeny Johnston MD
== END 2021-08-26 15:20 | disposition home health service (06) | DRG 466 ==
LOC: SUR 08:00 → MEDSUR 14:45
PROVIDERS: ADMIT Orthopaedic Surgery Sports Medicine; ATTEND Orthopaedic Surgery Sports Medicine

== ENCOUNTER 2022-07-07 12:00 | Inpatient (IN) ==
[2022-07-07] MEDS ORDERED: 0.9 % SODIUM CHLORIDE 1,000 ML IV ONE ×2 (12:24→12:36)
[2022-07-07 12:26] LABS: POC Calcium, Ionized 0.97 (1.16-1.32); POC Creatinine 5.3 (0.6-1.2); POC Potassium 3.9 (3.3-5.1)
[2022-07-07] MEDS ORDERED: ASPIRIN 81 MG TAB.CHEW CHEWED ONE (12:36)
[2022-07-07] MEDS ORDERED: morphine 4 MG/ML VIAL IV ONE (12:36)
[2022-07-07] MEDS ORDERED: METOCLOPRAMIDE 10 MG/2 ML VIAL IV ONE (12:36)
[2022-07-07] MEDS ORDERED: HEPARIN 5,000 UNIT/ML VIAL IV ONE (12:45)
--- NOTE | 2022-07-07 12:45 | Emergency Department Note ---
HPI General Chief complaint: Abdominal Pain Stated complaint: diverticulitis Time Seen by Provider: 07/07/22 12:30 Source: patient Mode of arrival: ambulatory Limitations: no limitations History of Present Illness HPI Narrative: Narrative: The patient presents with 2 main complaints. His first complaint is that he thinks he has diverticulitis again. He is having bilateral lower abdominal pain for 3 days. He has not had a bowel movement in that time. He is also not passed any gas. He is nauseous and has started vomiting since yesterday. Patient denies any urinary problems. Movement makes the pain worse. No other modifying factors. It does not radiate or migrate. His second complaint is chest pain that began sometime earlier this morning. He says he feels like he got hit with a baseball bat in the center of his chest. This is associated with shortness of breath. Pain is not pleuritic. He denies cough or fever. He denies leg pain or swelling. Related Data Previous Rx's Medication Instructions Recorded acetaminophen 325 mg tablet 650 mg PO Q6HP PRN Per Pain 06/21/20 (Tylenol) Protocol/Fever > 101 #60 tabs C-pap and supplies #1 ea 07/25/21 triamcinolone acetonide 0.1 % 1 applic topical BID #30 grams 08/31/21 topical cream trazodone 100 mg tablet 100 mg PO QHS PRN for insomnia #90 02/19/22 tabs sertraline 50 mg tablet 50 mg PO QDAY #90 tabs 03/06/22 peg 3350-electrolytes 236 240 ml PO Q10M #4,000 mL 03/21/22 gram-22.74 gram-6.74 gram-5.86 gram solution (Golytely) Lactobacillus rhamnosus GG 20 1 cell PO QHS #30 caps 03/29/22 billion cell capsule (Probiotic Digestive Care) amlodipine 10 mg tablet 10 mg PO QDAY #90 tabs 04/18/22 losartan 100 mg tablet 100 mg PO QDAY #90 tabs 04/18/22 Allergies Allergy/AdvReac Type Severity Reaction Status Date / Time Latex, Natural Rubber AdvReac Intermediate Rash Verified 04/10/22 07:12 Review of Systems ROS ROS Narrative: Narrative: All systems ED: reviewed and negative except as stated. PFSH Narrative Patient History Narrative: Narrative: Medical/Surgical/Family History All Active Problems (Updated 07/07/22 @ 16:21 by Danisha Pires MD) Acute kidney injury with acute tubular necrosis (Acute) Encounter for wound re-check (Acute) Abdominal pain, lower (Acute) Chest pain (Acute) TATIANA (acute kidney injury) (Acute) Abscess of skin or subcutaneous tissue (Acute) Cellulitis (Acute) Vertigo (Acute) Environmental allergies (Acute) Postoperative edema (Acute) Sleep apnea (Acute) Fall (Acute) Bimalleolar ankle fracture (Acute) Intermittent chest pain (Acute) Palpitation (Acute) TIA (transient ischemic attack) (Acute) Right sciatic nerve pain (Acute) Eczema (Acute) Acute viral syndrome (Acute) Right hip pain (Acute) Colitis (Chronic) Suicidal ideation (Chronic) Alcohol intoxication (Chronic) Hypokalemia (Chronic) Hypocalcemia (Chronic) Elevated LFTs (Chronic) Morbid obesity (Chronic) History of diverticulitis (Chronic) History of colonoscopy (Chronic ~2017) Anxiety (Chronic ~2015) Acid reflux (Chronic) Diverticulitis (Chronic ~01/2017) Depression (Chronic) History of cholecystectomy (Chronic ~05/2017) Gout (Chronic ~2013) High blood pressure (Chronic ~2001) High cholesterol (Chronic) Joint pain (Chronic) Stroke (Chronic ~10/2018) Alcohol abuse (Chronic) History of knee surgery (Chronic) History of hernia repair (Chronic ~1978) Hernia (Chronic) History of appendectomy (Chronic ~1989) History of hip replacement (Chronic ~2016) Back pain (Acute) Recurrent umbilical hernia (Acute) Hypertension (Acute) Acute bacterial sinusitis (Acute) Diarrhea (Acute) Abdominal pain (Acute) Incisional hernia (Acute) Lumbar spondylolysis (Acute) Medical History Abdominal pain Secondary to incisional hernia Acid reflux Alcohol abuse Sober since 05/17/2019, seeing Jerome Hensley Anxiety (~2015) Back pain MRI 02/02/2016: Impression: 1. Very minimal inferior left neural foramen narrowing at L4-5 and L5-S1 but recommend clinical correlation for any left L4-L5 nerve root symptoms. 2. Old moderate anterior wedge compression of the T11 vertebral body. Depression Diarrhea Diverticulitis (~01/2017) Gout (~2013) 02/24/2015 Xray: IMPRESSION: Right 1st MTPJ soft tissue swelling can be seen in gout. No arthritic osseous change. On Allopurinol Hernia 1979; 2004 High blood pressure (~2001) Amlodopine 10mg High cholesterol Cholesterol 10/26/2019: 184, Triglycerides 97, HDL 42, LDL 123 11/04/2018: Cholesterol 234, Triglycerides 250, HDL 54, LDL 131 He's going to stop his statin History of diverticulitis Never had regular GI followup Hx of transient ischemic attack (TIA) Hypertension Joint pain Lumbar spondylolysis Morbid obesity BMI 45.8...1-28-20 BMI: 41.8 Long discussion with patient about recurrence after incisional hernia repair. Discussed his increased risk of recurrence with a BMI greater than 35. He verbalizes understanding of this, he will continue on his diet modification a nd exercise and continue to try to lose weight both before and after the surgery. Right hip pain Sleep apnea Wears a CPAP Stroke (~10/2018) Chads score =3 Vertigo Surgical History H/O exploratory laparotomy (~06/20/20) Hernia Dr Blackwell History of appendectomy (~1989) History of cholecystectomy (~05/2017) History of colonoscopy (~2017) History of colostomy Due to diverticulitis rupture History of colostomy reversal (~05/2018) History of hernia repair (~1978) History of hip replacement (~2016) History of knee surgery 1978; 2009 History of ventral hernia repair 06/20/2020 Family History Mother Lung cancer High blood pressure Father Lung cancer High blood pressure Brother High blood pressure Sister High blood pressure Social History Smoking Status: Former smoker Alcohol Intake Frequency: 0-2 drinks per day Substance Use: does not use Exam Narrative Narrative: Narrative: General Limitations: no limitations General appearance: Present alert and in no apparent distress Head Head: Present atraumatic and normal inspection Eye Eye: Present normal appearance and EOMI ENT ENT: Present mucous membranes dry Neck Neck: Present normal inspection, full ROM and trachea midline Chest Chest: Present normal inspection and symmetric chest wall rise Respiratory Respiratory: Present normal lung sounds bilaterally; Absent respiratory distress Cardiovascular Cardiovascular: Present regular rate, normal rhythm and other (Bilateral radial 2+) Adbominal Abdominal: Present soft, tenderness (Tender to palpate both right and left lower quadrant with no rebound or guarding.), rebound and normal bowel sounds; Absent distention, guarding, obturator sign, Rovsing's sign or tenderness at McBurney's Point Extremities Extremities: Present normal inspection and full ROM; Absent pedal edema or calf tenderness Back Back: Present full ROM; Absent CVA tenderness (R) or CVA tenderness (L) Neurological Neurological: Present alert and oriented X3 Psychiatric Psychiatric: Present normal affect and normal mood Skin Skin: Present warm (WNL) and dry Course Course Course Narrative: Patient CT does not show any sign of diverticulitis or any surgical pathology. There is nonspecific inflammatory changes. Patient is not having any symptoms of colitis. Patient's repeat troponin is the same. This tells me that he is not having any active infarction. It is likely elevated due to his kidney dysfunction. Patient will need to be admitted due to his acute kidney injury. I will check to see if we have a bed available here and if our hospitalist is comfortable with the admission. If not, we will need to transfer the patient. Consultations Consultation #1: I spoke with the hospitalist, Dr. Brush. He said that if the cardiology service and the nephrology service are willing to consult on this patient, then he would be willing to admit Time: 15:22 Consultation #2: I spoke to the pipelines laborer, Dr. Pires. He agreed to consult Time: 15:26 Consultation #3: I spoke to the diesel engineer, Dr. Duncan. She agreed to consult. She said given a nondiagnostic EKG and no change in troponin, she did not think that he was having any emergent cardiac problem. Time: 16:00 Additional Consultation(s): 1611 -I respect Dr. Brush. He said he would evaluate the patient Vital Signs Vital signs: Vital Signs Temperature 97.5 F 07/07/22 12:05 Pulse Rate 89 07/07/22 12:05 Respiratory Rate 20 07/07/22 12:05 Blood Pressure 97/53 07/07/22 12:05 Pulse Oximetry (%) 95 07/07/22 12:05 Oxygen Delivery Method Room Air 07/07/22 12:05 Temperature 97.5 F 07/07/22 12:05 Pulse Rate 87 07/07/22 13:01 Respiratory Rate 17 03/19/23 13:01 Blood Pressure 101/55 03/19/23 13:01 Pulse Oximetry (%) 91 07/07/22 13:01 Oxygen Delivery Method Nasal Cannula 07/07/22 13:01 Oxygen Flow Rate (L/min) 3.5 07/07/22 13:01 [facility] Narrative Medical decision making narrative: Narrative: The patient presents with 2 complaints. Regarding the abdominal pain, diverticulitis is possible. Small bowel obstruction is considered. Appendicitis is considered. Plan to do a CT and appropriate labs for this. Patient does have a bump in his creatinine which is concerning. We will do this a noncontrast CT. We will give a liter of fluid. Regarding patient's second complaint, chest pain, this could be cardiac etiology. This is the most likely culprit. I doubt pneumonia given lack of cough or fever. I doubt PE given lack of pleuritic pain or any significant risk factors for this. He is not tachycardic. Patient's initial troponin is slightly elevated. We will trend this. We will start heparin and give a dose of aspirin. I suspect patient will need to be transferred due to the acuity of his presentation. Lab Data Lab results reviewed: Yes I reviewed the patient's lab results. 07/07/22 12:44 Labs: Lab Results 07/07/22 07/07/22 07/07/22 Range/Units 12:18 12:21 12:43 WBC (4.5-11.0) K/mcL RBC (4.63-6.08) M/mcL Hgb (13.7-17.5) g/dL Hct (40.1-51.0) % POC Hct 41.0 (41-55) MCV (80.0-100.0) fL MCH (26.0-34.0) pg MCHC (31.0-36.0) g/dL RDW (11.5-14.5) % Plt Count (140-440) K/mcL MPV (8.8-12.5) fL Immature Gran % (Auto) (0.0-0.5) % Neut % (Auto) (38.0-78.0) % Lymph % (Auto) (15.5-49.0) % Gilliam % (Auto) (1.0-12.0) % Eos % (Auto) (0.0-7.0) % Baso % (Auto) (0.0-2.0) % Lymph # (Auto) (1.50-4.80) K/mcL Gilliam # (Auto) (0.10-0.90) K/mcL Eos # (Auto) (0.00-0.70) K/mcL Baso # (Auto) (0.00-0.30) K/mcL Seg Neutrophils % (38-78) % Band Neutrophils % (0-10) % Lymphocytes % (15-49) % Monocytes % (Manual) (1-12) % Immature Gran # (0.00-0.05) K/mcl Absolute Neutrophils (1.80-8.00) K/mcL Platelet Estimate (Normal) RBC Morphology (Normal) Macrocytosis (None Seen) PT 14.5 (11.9-14.5) sec INR 1.1 (0.9-1.1) APTT 27.6 (20.0-37.0) sec POC Sodium 128 L (133-145) POC Potassium 3.9 (3.3-5.1) POC Chloride 95 L (96-108) POC Total CO2 18.0 L (22-30) POC BUN 34 H (6-20) POC Creatinine 5.3 H* (0.6-1.2) POC Glucose 177 H (70-105) POC WB Ioniz Calcium 0.97 L (1.16-1.32) Total Bilirubin (0.1-1.0) mg/dL Direct Bilirubin (<0.3) mg/dL AST (<40) U/L ALT (<40) U/L Alkaline Phosphatase (39-117) U/L NT-Pro-B Natriuret Pep (<125.0) pg/mL Total Protein (5.9-8.4) gm/dL Albumin (3.2-5.2) gm/dL Globulin (2.2-3.7) gm/dL Lipase (7-60) U/L Procalcitonin (<0.10) ng/mL Urine Color Urine Appearance (Clear) Urine pH (5.0-9.0) Ur Specific [place] (1.000-1.035) Urine Protein (Negative) mg/dL Urine Glucose (UA) (Negative) mg/dL Urine Ketones (Negative) mg/dL Urine Occult Blood (Negative) mg/dL Urine Nitrate (Negative) Urine Bilirubin (Negative) mg/dL Urine Urobilinogen mg/dL Ur Leukocyte Esterase (Negative) /uL Urine RBC (0-3) /hpf Urine WBC (0-4) /hpf Ur Squamous Epith Cells (0-4) /hpf Urine Bacteria (0) /hpf Hyaline Casts (0-2) /lph Granular Casts (0-0) /lph Urine Mucus (None) /hpf Ur Culture Indicated? POC Troponin I 0.13 H (0.00-0.08) 07/07/22 07/07/22 07/07/22 Range/Units 12:43 12:44 14:03 WBC 10.9 (4.5-11.0) K/mcL RBC 3.98 L (4.63-6.08) M/mcL Hgb 13.8 (13.7-17.5) g/dL Hct 38.2 L (40.1-51.0) % POC Hct (41-55) MCV 96.0 (80.0-100.0) fL MCH 34.7 H (26.0-34.0) pg MCHC 36.1 H (31.0-36.0) g/dL RDW 12.0 (11.5-14.5) % Plt Count 163 (140-440) K/mcL MPV 11.7 (8.8-12.5) fL Immature Gran % (Auto) 0.5 (0.0-0.5) % Neut % (Auto) 83.1 H (38.0-78.0) % Lymph % (Auto) 6.5 L (15.5-49.0) % Gilliam % (Auto) 9.8 (1.0-12.0) % Eos % (Auto) 0 (0.0-7.0) % Baso % (Auto) 0.1 (0.0-2.0) % Lymph # (Auto) 0.71 L (1.50-4.80) K/mcL Gilliam # (Auto) 1.07 H (0.10-0.90) K/mcL Eos # (Auto) 0 (0.00-0.70) K/mcL Baso # (Auto) 0.01 (0.00-0.30) K/mcL Seg Neutrophils % 79 H (38-78) % Band Neutrophils % 5 (0-10) % Lymphocytes % 9 L (15-49) % Monocytes % (Manual) 7 (1-12) % Immature Gran # 0.05 (0.00-0.05) K/mcl Absolute Neutrophils 9.07 H (1.80-8.00) K/mcL Platelet Estimate Normal (Normal) RBC Morphology Abnormal A (Normal) Macrocytosis 1+ A (None Seen) PT (11.9-14.5) sec INR (0.9-1.1) APTT (20.0-37.0) sec POC Sodium (133-145) POC Potassium (3.3-5.1) POC Chloride (96-108) POC Total CO2 (22-30) POC BUN (6-20) POC Creatinine (0.6-1.2) POC Glucose (70-105) POC WB Ioniz Calcium (1.16-1.32) Total Bilirubin 1.4 H (0.1-1.0) mg/dL Direct Bilirubin 0.4 H (<0.3) mg/dL AST 44 H (<40) U/L ALT 45 H (<40) U/L Alkaline Phosphatase 124 H (39-117) U/L NT-Pro-B Natriuret Pep (<125.0) pg/mL Total Protein 6.8 (5.9-8.4) gm/dL Albumin 4.3 (3.2-5.2) gm/dL Globulin 2.5 (2.2-3.7) gm/dL Lipase 27 (7-60) U/L Procalcitonin (<0.10) ng/mL Urine Color Urine Appearance (Clear) Urine pH (5.0-9.0) Ur Specific [place] (1.000-1.035) Urine Protein (Negative) mg/dL Urine Glucose (UA) (Negative) mg/dL Urine Ketones (Negative) mg/dL Urine Occult Blood (Negative) mg/dL Urine Nitrate (Negative) Urine Bilirubin (Negative) mg/dL Urine Urobilinogen mg/dL Ur Leukocyte Esterase (Negative) /uL Urine RBC (0-3) /hpf Urine WBC (0-4) /hpf Ur Squamous Epith Cells (0-4) /hpf Urine Bacteria (0) /hpf Hyaline Casts (0-2) /lph Granular Casts (0-0) /lph Urine Mucus (None) /hpf Ur Culture Indicated? POC Troponin I (0.00-0.08) 07/07/22 07/07/22 07/07/22 Range/Units 14:03 14:03 14:04 WBC (4.5-11.0) K/mcL RBC (4.63-6.08) M/mcL Hgb (13.7-17.5) g/dL Hct (40.1-51.0) % POC Hct (41-55) MCV (80.0-100.0) fL MCH (26.0-34.0) pg MCHC (31.0-36.0) g/dL RDW (11.5-14.5) % Plt Count (140-440) K/mcL MPV (8.8-12.5) fL Immature Gran % (Auto) (0.0-0.5) % Neut % (Auto) (38.0-78.0) % Lymph % (Auto) (15.5-49.0) % Gilliam % (Auto) (1.0-12.0) % Eos % (Auto) (0.0-7.0) % Baso % (Auto) (0.0-2.0) % Lymph # (Auto) (1.50-4.80) K/mcL Gilliam # (Auto) (0.10-0.90) K/mcL Eos # (Auto) (0.00-0.70) K/mcL Baso # (Auto) (0.00-0.30) K/mcL Seg Neutrophils % (38-78) % Band Neutrophils % (0-10) % Lymphocytes % (15-49) % Monocytes % (Manual) (1-12) % Immature Gran # (0.00-0.05) K/mcl Absolute Neutrophils (1.80-8.00) K/mcL Platelet Estimate (Normal) RBC Morphology (Normal) Macrocytosis (None Seen) PT (11.9-14.5) sec INR (0.9-1.1) APTT (20.0-37.0) sec POC Sodium (133-145) POC Potassium (3.3-5.1) POC Chloride (96-108) POC Total CO2 (22-30) POC BUN (6-20) POC Creatinine (0.6-1.2) POC Glucose (70-105) POC WB Ioniz Calcium (1.16-1.32) Total Bilirubin (0.1-1.0) mg/dL Direct Bilirubin (<0.3) mg/dL AST (<40) U/L ALT (<40) U/L Alkaline Phosphatase (39-117) U/L NT-Pro-B Natriuret Pep 4449.0 H (<125.0) pg/mL Total Protein (5.9-8.4) gm/dL Albumin (3.2-5.2) gm/dL Globulin (2.2-3.7) gm/dL Lipase (7-60) U/L Procalcitonin 0.49 H (<0.10) ng/mL Urine Color Urine Appearance (Clear) Urine pH (5.0-9.0) Ur Specific [place] (1.000-1.035) Urine Protein (Negative) mg/dL Urine Glucose (UA) (Negative) mg/dL Urine Ketones (Negative) mg/dL Urine Occult Blood (Negative) mg/dL Urine Nitrate (Negative) Urine Bilirubin (Negative) mg/dL Urine Urobilinogen mg/dL Ur Leukocyte Esterase (Negative) /uL Urine RBC (0-3) /hpf Urine WBC (0-4) /hpf Ur Squamous Epith Cells (0-4) /hpf Urine Bacteria (0) /hpf Hyaline Casts (0-2) /lph Granular Casts (0-0) /lph Urine Mucus (None) /hpf Ur Culture Indicated? POC Troponin I 0.13 H (0.00-0.08) 07/07/22 Range/Units 16:06 WBC (4.5-11.0) K/mcL RBC (4.63-6.08) M/mcL Hgb (13.7-17.5) g/dL Hct (40.1-51.0) % POC Hct (41-55) MCV (80.0-100.0) fL MCH (26.0-34.0) pg MCHC (31.0-36.0) g/dL RDW (11.5-14.5) % Plt Count (140-440) K/mcL MPV (8.8-12.5) fL Immature Gran % (Auto) (0.0-0.5) % Neut % (Auto) (38.0-78.0) % Lymph % (Auto) (15.5-49.0) % Gilliam % (Auto) (1.0-12.0) % Eos % (Auto) (0.0-7.0) % Baso % (Auto) (0.0-2.0) % Lymph # (Auto) (1.50-4.80) K/mcL Gilliam # (Auto) (0.10-0.90) K/mcL Eos # (Auto) (0.00-0.70) K/mcL Baso # (Auto) (0.00-0.30) K/mcL Seg Neutrophils % (38-78) % Band Neutrophils % (0-10) % Lymphocytes % (15-49) % Monocytes % (Manual) (1-12) % Immature Gran # (0.00-0.05) K/mcl Absolute Neutrophils (1.80-8.00) K/mcL Platelet Estimate (Normal) RBC Morphology (Normal) Macrocytosis (None Seen) PT (11.9-14.5) sec INR (0.9-1.1) APTT (20.0-37.0) sec POC Sodium (133-145) POC Potassium (3.3-5.1) POC Chloride (96-108) POC Total CO2 (22-30) POC BUN (6-20) POC Creatinine (0.6-1.2) POC Glucose (70-105) POC WB Ioniz Calcium (1.16-1.32) Total Bilirubin (0.1-1.0) mg/dL Direct Bilirubin (<0.3) mg/dL AST (<40) U/L ALT (<40) U/L Alkaline Phosphatase (39-117) U/L NT-Pro-B Natriuret Pep (<125.0) pg/mL Total Protein (5.9-8.4) gm/dL Albumin (3.2-5.2) gm/dL Globulin (2.2-3.7) gm/dL Lipase (7-60) U/L Procalcitonin (<0.10) ng/mL Urine Color Lu Urine Appearance Cloudy A (Clear) Urine pH 5.0 (5.0-9.0) Ur Specific [place] 1.018 (1.000-1.035) Urine Protein 100 A (Negative) mg/dL Urine Glucose (UA) Negative (Negative) mg/dL Urine Ketones 5 A (Negative) mg/dL Urine Occult Blood 0.03 (Negative) mg/dL Urine Nitrate Negative (Negative) Urine Bilirubin Negative (Negative) mg/dL Urine Urobilinogen 2.0 A mg/dL Ur Leukocyte Esterase 25 A (Negative) /uL Urine RBC 6 H (0-3) /hpf Urine WBC 7 H (0-4) /hpf Ur Squamous Epith Cells 2 (0-4) /hpf Urine Bacteria Few A (0) /hpf Hyaline Casts 112 H (0-2) /lph Granular Casts 3 H (0-0) /lph Urine Mucus Many A (None) /hpf Ur Culture Indicated? Yes POC Troponin I (0.00-0.08) Radiology Data Radiology results reviewed: Yes I reviewed the patient's radiology results. EKG Data EKG #1: EKG attestation: Yes I reviewed and interpreted this EKG. and Yes There are no EKG findings of acute coronary syndrome EKG results narrative: Sinus, rate 89, normal axis, normal intervals, narrow complex QRS, no acute ST or T changes concerning for acute infarction or ischemia CC TIME Critical Care Time Critical Care Time: Yes Total Critical Care Time: 45 Attestation: Without intervention, patient may have had a deleterious outcome Discharge Plan Patient/Caregiver Discharge Instructions Pt seen by REGIONAL ACCOUNT EXECUTIVE/PA only: No Clinical Impression: Abdominal pain, lower, TATIANA (acute kidney injury) Chest pain Qualifiers: Chest pain type: unspecified Qualified Code(s): R07.9 - Chest pain, unspecified Patient Disposition: Xfer As Inpt ([facility]) Follow up with: Gunjan Gupta ARNP [Primary Care Provider] - Prescriptions: No Action (DME) C-pap and supplies See Rx Instructions .Route .MEDSUPPLY Qty: 1 0RF Rx Instructions: As directed triamcinolone acetonide 0.1 % cream 1 applic topical BID Qty: 30 0RF trazodone 100 mg tablet 100 mg PO QHS PRN (Reason: for insomnia) Qty: 90 0RF amlodipine 10 mg tablet 10 mg PO QDAY Qty: 90 1RF losartan 100 mg tablet 100 mg PO QDAY Qty: 90 1RF peg 3350-electrolytes [Golytely] 236-22.74-6.74 -5.86 gram recon soln 240 ml PO Q10M Qty: 4000 0RF sertraline 50 mg tablet 50 mg PO QDAY Qty: 90 3RF acetaminophen [Tylenol] 325 mg Tablet 650 mg PO Q6HP PRN (Reason: Per Pain Protocol/Fever > 101) Qty: 60 0RF Probiotic Digestive Care 20 billion cell capsule 1 cell PO QHS Qty: 30 0RF Rx Instructions: Take 1 capsule by mouth at bedtime, at least 2 hours after your last daily dose of antibiotic, for 30 days.
[2022-07-07] MEDS ORDERED: HEPARIN SOD,PORK IN 0.45% NACL 25,000 UNIT in PREMIX 1 BAG IV SCH (13:00)
--- NOTE | 2022-07-07 13:57 | Cat Scan Report ---
History: Lower abdominal pain TECHNIQUE: the patient was imaged without contrast in axial plane at 2.5 mm intervals from above the diaphragm through the symphysis pubis. Sagittal and coronal reformats were created. The radiation exposure was limited using dose reduction technology. FINDINGS: There is a small to moderate size right-sided layering of effusion and a small layering left-sided pleural effusion. There is mild compressive atelectasis in the right lung base. Thin bands of discoid atelectasis are present in the right middle lobe. The visualized portion left lung is clear. The heart is mildly enlarged and there is a moderate amount of atherosclerotic plaque. Prominent epicardial fat pads are present on both sides of the heart which accentuated the cardiomegaly and the preceding portable chest x-ray. Evaluation of the abdominal organs without contrast is limited. The liver and spleen appear normal in size and homogeneous. The gallbladder is surgically absent. The bile ducts are nondilated. No abnormality is detected in the pancreas. The adrenals are normal. There are several small nonobstructing calyceal stones in both kidneys. Largest is in the upper pole of the left kidney measures 3 mm. There is no hydronephrosis. Both ureters are decompressed and there are no stones within the ureters. Urinary bladder is decompressed and partially obscured by beam hardening artifact from bilateral hip prosthesis. There are no apparent bladder stones. Patient has moderate atherosclerotic disease in the abdomen or pelvis. Densely calcified plaques are present at the origin of the superior mesenteric artery. Without contrast the stenosis cannot be evaluated. The appendix and a segment of the sigmoid colon have been removed. There is a row of anastomotic sutures in the mid sigmoid colon. There is no obstruction at this level. There is subtle thickening of the wall of the mid and distal sigmoid colon and in the ascending and proximal transverse colon. There is mild increased deposition of submucosal fat throughout the large intestine. This is nonspecific but associated with chronic inflammatory bowel disease. No diverticula are present. There is nonspecific generalized stranding of the retroperitoneal, mesenteric and omental fat throughout the abdomen and pelvis. No abscess ascites or mass are present. There is no free intraperitoneal air. Along the anterior left lateral side of the abdominal wall there is a small hernia and subcutaneous scar tissue. This is probably the site of the prior abdominal surgery. There is no entrapment of bowel within this shallow but wide neck hernia. Hernia is approximately 2.5 cm in transverse dimension. No adenopathy is present. There are mild degenerative changes are present multiple levels in the spine. Comparison with the prior CT done on 03/26/22 shows the pleural effusions are new and the inflammatory changes in the fat throughout the abdomen and pelvis are also new. The thickened wall of the large intestine has also developed. IMPRESSION: Borderline thickened wall of the proximal and distal large bowel with surrounding inflammation. This may be due to colitis. No evidence of diverticulitis Bilateral pleural effusions, right greater than left and mild consolidation in the right lung base Dr. Salmeron was called with the report Interpreted and Authenticated by: Kali Anaya 07/07/22
[2022-07-07 14:00] LABS: INR 1.1 (0.9-1.1); Partial Thromboplastin Time 27.6 sec (20.0-37.0); Prothrombin Time 14.5 sec (11.9-14.5)
[2022-07-07 14:08] LABS: ALT/SGPT 45 U/L (<40); AST/SGOT 44 U/L (<40); Albumin 4.3 gm/dL (3.2-5.2); Alkaline Phosphatase 124 U/L (39-117); Bilirubin,Direct 0.4 mg/dL (<0.3); Bilirubin,Total 1.4 mg/dL (0.1-1.0); Globulin 2.5 gm/dL (2.2-3.7)
--- NOTE | 2022-07-07 14:32 | XRay Report ---
HISTORY: Chest pain, diverticulitis FINDINGS: There is hazy opacity at the right lung base and blunting of the right costophrenic sulcus. The opacity may be a combination of layering pleural fluid and consolidation in the right lower lobe. The heart appears moderately enlarged but is magnified by portable technique. Pulmonary vessels, best seen in the upper lobes are mildly engorged. IMPRESSION: cardiomegaly with borderline congestive heart failure. Small right lower lobe infiltrate Interpreted and Authenticated by: Kali Anaya 07/07/22
[2022-07-07 14:34] LABS: Basophils # (Auto) 0.01 K/mcL (0.00-0.30); Basophils % (Auto) 0.1 % (0.0-2.0); Eosinophils # (Auto) 0 K/mcL (0.00-0.70); Eosinophils % (Auto) 0 % (0.0-7.0); Hematocrit 38.2 % (40.1-51.0); Hemoglobin 13.8 g/dL (13.7-17.5); Lymphocytes # (Auto) 0.71 K/mcL (1.50-4.80); Lymphocytes % (Auto) 6.5 % (15.5-49.0); Mean Corpuscular HGB Conc 36.1 g/dL (31.0-36.0); Mean Platelet Volume 11.7 fL (8.8-12.5); Monocytes # (Auto) 1.07 K/mcL (0.10-0.90); Monocytes % (Auto) 9.8 % (1.0-12.0); Neutrophils % (Auto) 83.1 % (38.0-78.0); Platelet Count 163 K/mcL (140-440); RBC 3.98 M/mcL (4.63-6.08); WBC 10.9 K/mcL (4.5-11.0)
--- NOTE | 2022-07-07 16:13 | Internal Med History&Physical ---
HPI History of Present Illness Patient information: Note initiated : 07/07/22 at 4:11 pm Service Date, if different from initiated Date: [] Patient: Ander Ortiz a 62 y/o M admitted on for diverticulitis. Chief Complaint: [] History of present illness: Mr. Ortiz is a 62 year old M Patient states past 2 or 3 days he has been feeling weak and tired and then he developed sharp lower quadrant abdominal pain which he says radiates up through the chest into the neck and bilateral shoulders. Patient states his for the most part constant and feels exactly like when he had diverticulitis. He has not had any fevers or chills but has had headache. He has had no diarrhea. He also developed a chest pain described as pressure that he said radiated up and down his chest and into his neck and bilateral shoulders and has been per much constant but improved now given pain medications that were given. He also has had multiple episodes of nausea vomiting of the past 2 or 3 days and did have pyrosis as well. Troponin was 0.13 and repeat was the same and EKG was unremarkable for ischemic changes. Case was discussed with cardiology who had no acute concerns. He has been quite anxious. He is also complained of shortness of breath over the past few days but He feels it is related to anxiety and his pain and is intermittent. He is saturating at 93% on room air currently. CT abdomen pelvis did show a small moderate effusion on the right thoracic cavity. Patient denies coughing. Patient does get winded when ambulating around the house at baseline. Patient has been unable to keep any fluids down because of the nausea vomiting. Patient denies any recent medication changes. Also of note patient was hyponatremic 128. And found to have significant worsening of his renal function with a creatinine of 5.3 and baseline with normal creatinine level. BUN 34. Patient has had poor urine output at home. Case is discussed with nephrology who will follow along. CT abdomen pelvis showed borderline thickening of the proximal and distal large bowel with surrounding formation suspicious for colitis. IV fluids started in the ED. Review of Systems: Pertinent positives as above. Denies fever/chills/diarrhea. Remaining 10 point review of system reviewed negative PHYSICAL EXAM General: Alert, Awake, No acute Distress, obese Eyes/N/T: EOMI, no scleral icterus, PERRL, dry MM Head/Neck: neck supple, full ROM, normocephalic atraumatic CV: RRR, No murmurs, normal s1/s2 Pulm: Clear b/l, no wheezing/rhonchi/rales, no respiratory distress Abd: soft, nontender, +BS x4 Ext: no clubbing/cyanosis, trace to 1+ b/l LE edema R>L, nontender Neuro: Alert, no focal deficits, moves all extremities, CN 2-12 grossly intact, sensations intact b/l upper/lower Psychiatric: Skin: warm/dry, normal color PFSH PFSH All Active Problems (Updated 07/07/22 @ 16:21 by Danisha Pires MD) Acute kidney injury with acute tubular necrosis (Acute) Encounter for wound re-check (Acute) Abdominal pain, lower (Acute) Chest pain (Acute) TATIANA (acute kidney injury) (Acute) Abscess of skin or subcutaneous tissue (Acute) Cellulitis (Acute) Vertigo (Acute) Environmental allergies (Acute) Postoperative edema (Acute) Sleep apnea (Acute) Fall (Acute) Bimalleolar ankle fracture (Acute) Intermittent chest pain (Acute) Palpitation (Acute) TIA (transient ischemic attack) (Acute) Right sciatic nerve pain (Acute) Eczema (Acute) Acute viral syndrome (Acute) Right hip pain (Acute) Colitis (Chronic) Suicidal ideation (Chronic) Alcohol intoxication (Chronic) Hypokalemia (Chronic) Hypocalcemia (Chronic) Elevated LFTs (Chronic) Morbid obesity (Chronic) History of diverticulitis (Chronic) History of colonoscopy (Chronic ~2017) Anxiety (Chronic ~2015) Acid reflux (Chronic) Diverticulitis (Chronic ~01/2017) Depression (Chronic) History of cholecystectomy (Chronic ~05/2017) Gout (Chronic ~2013) High blood pressure (Chronic ~2001) High cholesterol (Chronic) Joint pain (Chronic) Stroke (Chronic ~10/2018) Alcohol abuse (Chronic) History of knee surgery (Chronic) History of hernia repair (Chronic ~1978) Hernia (Chronic) History of appendectomy (Chronic ~1989) History of hip replacement (Chronic ~2016) Back pain (Acute) Recurrent umbilical hernia (Acute) Hypertension (Acute) Acute bacterial sinusitis (Acute) Diarrhea (Acute) Abdominal pain (Acute) Incisional hernia (Acute) Lumbar spondylolysis (Acute) Medical History Abdominal pain Secondary to incisional hernia Acid reflux Alcohol abuse Sober since 05/17/2019, seeing [facility] Anxiety (~2015) Back pain MRI 02/02/2016: Impression: 1. Very minimal inferior left neural foramen narrowing at L4-5 and L5-S1 but recommend clinical correlation for any left L4-L5 nerve root symptoms. 2. Old moderate anterior wedge compression of the T11 vertebral body. Depression Diarrhea Diverticulitis (~01/2017) Gout (~2013) 02/24/2015 Xray: IMPRESSION: Right 1st MTPJ soft tissue swelling can be seen in gout. No arthritic osseous change. On Allopurinol Hernia 1978; 2004 High blood pressure (~2001) Amlodopine 10mg High cholesterol Cholesterol 10/26/2019: 184, Triglycerides 97, HDL 42, LDL 123 11/04/2018: Cholesterol 234, Triglycerides 250, HDL 54, LDL 131 He's going to stop his statin History of diverticulitis Never had regular GI followup Hx of transient ischemic attack (TIA) Hypertension Joint pain Lumbar spondylolysis Morbid obesity BMI 45.8...1-28-20 BMI: 41.8 Long discussion with patient about recurrence after incisional hernia repair. Discussed his increased risk of recurrence with a BMI greater than 35. He verbalizes understanding of this, he will continue on his diet modification and exercise and continue to try to lose weight both before and after the surgery. Right hip pain Sleep apnea Wears a CPAP Stroke (~10/2018) Chads score =3 Vertigo Surgical History H/O exploratory laparotomy (~06/20/20) Hernia Dr Blackwell History of appendectomy (~1989) History of cholecystectomy (~05/2017) History of colonoscopy (~2017) History of colostomy Due to diverticulitis rupture History of colostomy reversal (~05/2018) History of hernia repair (~1978) History of hip replacement (~2016) History of knee surgery 1978; 2009 History of ventral hernia repair 06/20/2020 Family History Mother Lung cancer High blood pressure Father Lung cancer High blood pressure Brother High blood pressure Sister High blood pressure Social History household members: spouse housing: apartment marital status: occupational 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 and disabled 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: : [place] physical activity: none and 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 smoking status: Former smoker alcohol intake frequency: 0-2 drinks per day counseling provided: support program substance use type: does not use ocncepcion/spiritism: Nondenominational seatbelt use: always MEDS/ALLERGIES Home Medications and Allergies Home Medications Medication Instructions Recorded Confirmed Type acetaminophen 325 mg tablet 650 mg PO Q6HP PRN Per Pain 06/21/20 04/10/22 Rx (Tylenol) Protocol/Fever > 101 #60 tabs C-pap and supplies #1 ea 07/25/21 03/29/22 Rx triamcinolone acetonide 0.1 % 1 applic topical BID #30 grams 08/31/21 04/10/22 Rx topical cream trazodone 100 mg tablet 100 mg PO QHS PRN for insomnia #90 02/19/22 04/10/22 Rx tabs sertraline 50 mg tablet 50 mg PO QDAY #90 tabs 03/06/22 04/10/22 Rx peg 3350-electrolytes 236 240 ml PO Q10M #4,000 mL 03/21/22 04/10/22 Rx gram-22.74 gram-6.74 gram-5.86 gram solution (Golytely) Lactobacillus rhamnosus GG 20 1 cell PO QHS #30 caps 03/29/22 04/10/22 Rx billion cell capsule (Probiotic Digestive Care) amlodipine 10 mg tablet 10 mg PO QDAY #90 tabs 04/18/22 Rx losartan 100 mg tablet 100 mg PO QDAY #90 tabs 04/18/22 Rx Allergies Allergy/AdvReac Type Severity Reaction Status Date / Time Latex, Natural Rubber AdvReac Intermediate Rash Verified 04/10/22 07:12 EXAM Constitutional Vitals: Temp Pulse Resp BP Pulse Ox O2 Del Method O2 Flow Rate 97.5 F 87 17 101/55 91 Nasal Cannula 3.5 07/07/22 12:05 07/07/22 13:01 07/07/22 13:01 07/07/22 13:01 07/07/22 13:01 07/07/22 13:01 07/07/22 13:01 DATA Data Completed and Pending Labs: Labs from last 24 hours 07/07/22 07/07/22 07/07/22 16:06 14:04 14:03 WBC RBC Hgb Hct POC Hct MCV MCH MCHC RDW Plt Count MPV Immature Gran % (Auto) Neut % (Auto) Lymph % (Auto) [place] % (Auto) Eos % (Auto) Baso % (Auto) Lymph # (Auto) [place] # (Auto) Eos # (Auto) Baso # (Auto) Immature Gran # Absolute Neutrophils Platelet Estimate RBC Morphology PT INR APTT POC Sodium POC Potassium POC Chloride POC Total CO2 POC BUN POC Creatinine POC Glucose POC WB Ioniz Calcium Total Bilirubin Direct Bilirubin AST ALT Alkaline Phosphatase NT-Pro-B Natriuret Pep 4449.0 H Total Protein Albumin Globulin Lipase Urine Color Pending Urine Appearance Pending Urine pH Pending Ur Specific [place] Pending Urine Protein Pending Urine Glucose (UA) Pending Urine Ketones Pending Urine Occult Blood Pending Urine Nitrate Pending Urine Bilirubin Pending Urine Urobilinogen Pending Ur Leukocyte Esterase Pending POC Troponin I 0.13 H 07/07/22 07/07/22 07/07/22 14:03 12:44 12:43 WBC 10.9 RBC 3.98 L Hgb 13.8 Hct 38.2 L POC Hct MCV 96.0 MCH 34.7 H MCHC 36.1 H RDW 12.0 Plt Count 163 MPV 11.7 Immature Gran % (Auto) 0.5 Neut % (Auto) 83.1 H Lymph % (Auto) 6.5 L [place] % (Auto) 9.8 Eos % (Auto) 0 Baso % (Auto) 0.1 Lymph # (Auto) 0.71 L [place] # (Auto) 1.07 H Eos # (Auto) 0 Baso # (Auto) 0.01 Immature Gran # 0.05 Absolute Neutrophils 9.07 H Platelet Estimate Pending RBC Morphology Pending PT INR APTT POC Sodium POC Potassium POC Chloride POC Total CO2 POC BUN POC Creatinine POC Glucose POC WB Ioniz Calcium Total Bilirubin 1.4 H Direct Bilirubin 0.4 H AST 44 H ALT 45 H Alkaline Phosphatase 124 H NT-Pro-B Natriuret Pep Total Protein 6.8 Albumin 4.3 Globulin 2.5 Lipase 27 Urine Color Urine Appearance Urine pH Ur Specific [place] Urine Protein Urine Glucose (UA) Urine Ketones Urine Occult Blood Urine Nitrate Urine Bilirubin Urine Urobilinogen Ur Leukocyte Esterase POC Troponin I 07/07/22 07/07/22 07/07/22 12:43 12:21 12:18 WBC RBC Hgb Hct POC Hct 41.0 MCV MCH MCHC RDW Plt Count MPV Immature Gran % (Auto) Neut % (Auto) Lymph % (Auto) [place] % (Auto) Eos % (Auto) Baso % (Auto) Lymph # (Auto) [place] # (Auto) Eos # (Auto) Baso # (Auto) Immature Gran # Absolute Neutrophils Platelet Estimate RBC Morphology PT 14.5 INR 1.1 APTT 27.6 POC Sodium 128 L POC Potassium 3.9 POC Chloride 95 L POC Total CO2 18.0 L POC BUN 34 H POC Creatinine 5.3 H* POC Glucose 177 H POC WB Ioniz Calcium 0.97 L Total Bilirubin Direct Bilirubin AST ALT Alkaline Phosphatase NT-Pro-B Natriuret Pep Total Protein Albumin Globulin Lipase Urine Color Urine Appearance Urine pH Ur Specific [place] Urine Protein Urine Glucose (UA) Urine Ketones Urine Occult Blood Urine Nitrate Urine Bilirubin Urine Urobilinogen Ur Leukocyte Esterase POC Troponin I 0.13 H A/P Narrative A/P Narrative: A: *TATIANA possible ATN: suspect 2/2 N/V/poor oral intake in setting of ARB use and low BP -poor *Colitis(h/o diverticulitis with bowel surgeries): *Hyponatremia: *HTN: borderline hypotension *Morbid obesity: BMI 44 *MIGDALIA: on CPAP *GERD: *Depression: * P: -IVF -Nephrology following -Monitor UOP, i/o, renal fxn -Follow-up sodium, monitor replace electrolytes -UA pending -emperic abx -pain control -ppi, carafate for likely gastritis/esophagitis from n/v -Hold Norvasc/losartan for low BP and TATIANA -tele and monito bp closely -home cpap -Home medication reconciliation -PT/OT -ppx: Heparin Time Spent With Patient Time: Total time spent is greater than 50% in coordination of care (as documented) at patient's floor/unit and/or counseling patient: Initial: Total time with patient: 75 - 90 minutes
--- NOTE | 2022-07-07 16:23 | Nephrology Consult Note ---
HPI Date of Consult Consult Date: 07/07/22 Requesting physician: Osbaldo Salmeron Primary Care Provider: JUAN Osborne Consult Narrative Patient Information: Note initiated : 07/07/22 at 4:21 pm Patient: Ander Ortiz 62 y/o M admitted on for diverticulitis. Chief Complaint: Nausea, vomiting and abdominal pain Ander Ortiz is a 62-year-old male with hypertension and remote history of ruptured diverticulitis s/p colostomy and reversal presented to ED for nausea, vomiting and abdominal pain for 3 days. He has not had a bowel movement or urine output. In ED, CT showed colitis. Creatinine was 5.3. He was given 1 L NS. He did not make any urine in ED. Nephrology consultation was requested for acute kidney injury. Chief complaint: Nausea, vomiting and abdominal pain Reason for consult: Acute kidney injury cc:: CC: Constitutional Constitutional: Present weakness; Absent fever(s) EENT Nose, mouth and throat: Absent nasal congestion or sore throat Cardiovascular Cardiovascular: Absent chest pain or palpatations Respiratory Respiratory: Absent dyspnea or wheezing Gastrointestinal Gastrointestinal: Present abdominal pain, nausea and vomiting Genitourinary Additional comments: decreased urine output with dark urine Musculoskeletal Musculoskeletal: Absent joint swelling or muscle cramps Integumentary Integumentary: Absent rash or wounds Neurological Neurological: Absent confusion or dizziness Psychiatric Psychiatric: Absent anxiety or panic attacks Hematologic/Lymphatic Hematologic/Lymphatic: Absent easy bleeding or easy bruising Allergic/Immunologic Allergic/Immunologic: Absent tongue swelling or uticaria PFSH PFSH All Active Problems (Updated 07/07/22 @ 16:21 by Danisha Pires MD) Acute kidney injury with acute tubular necrosis (Acute) Encounter for wound re-check (Acute) Abdominal pain, lower (Acute) Chest pain (Acute) TATIANA (acute kidney injury) (Acute) Abscess of skin or subcutaneous tissue (Acute) Cellulitis (Acute) Vertigo (Acute) Environmental allergies (Acute) Postoperative edema (Acute) Sleep apnea (Acute) Fall (Acute) Bimalleolar ankle fracture (Acute) Intermittent chest pain (Acute) Palpitation (Acute) TIA (transient ischemic attack) (Acute) Right sciatic nerve pain (Acute) Eczema (Acute) Acute viral syndrome (Acute) Right hip pain (Acute) Colitis (Chronic) Suicidal ideation (Chronic) Alcohol intoxication (Chronic) Hypokalemia (Chronic) Hypocalcemia (Chronic) Elevated LFTs (Chronic) Morbid obesity (Chronic) History of diverticulitis (Chronic) History of colonoscopy (Chronic ~2017) Anxiety (Chronic ~2015) Acid reflux (Chronic) Diverticulitis (Chronic ~01/2017) Depression (Chronic) History of cholecystectomy (Chronic ~05/2017) Gout (Chronic ~2013) High blood pressure (Chronic ~2001) High cholesterol (Chronic) Joint pain (Chronic) Stroke (Chronic ~10/2018) Alcohol abuse (Chronic) History of knee surgery (Chronic) History of hernia repair (Chronic ~1978) Hernia (Chronic) History of appendectomy (Chronic ~1989) History of hip replacement (Chronic ~2016) Back pain (Acute) Recurrent umbilical hernia (Acute) Hypertension (Acute) Acute bacterial sinusitis (Acute) Diarrhea (Acute) Abdominal pain (Acute) Incisional hernia (Acute) Lumbar spondylolysis (Acute) Medical History Abdominal pain Secondary to incisional hernia Acid reflux Alcohol abuse Sober since 05/17/2019, seeing Jerome Hensley Anxiety (~2015) Back pain MRI 02/02/2016: Impression: 1. Very minimal inferior left neural foramen narrowing at L4-5 and L5-S1 but recommend clinical correlation for any left L4-L5 nerve root symptoms. 2. Old moderate anterior wedge compression of the T11 vertebral body. Depression Diarrhea Diverticulitis (~01/2017) Gout (~2013) 02/24/2015 Xray: IMPRESSION: Right 1st MTPJ soft tissue swelling can be seen in gout. No arthritic osseous change. On Allopurinol Hernia 1979; 2004 High blood pressure (~2001) Amlodopine 10mg High cholesterol Cholesterol 10/26/2019: 184, Triglycerides 97, HDL 42, LDL 123 11/04/2018: Cholesterol 234, Triglycerides 250, HDL 54, LDL 131 He's going to stop his statin History of diverticulitis Never had regular GI followup Hx of transient ischemic attack (TIA) Hypertension Joint pain Lumbar spondylolysis Morbid obesity BMI 45.8...1-- BMI: 41.8 Long discussion with patient about recurrence after incisional hernia repair. Discussed his increased risk of recurrence with a BMI greater than 35. He verbalizes understanding of this, he will continue on his diet modification and exercise and continue to try to lose weight both before and after the surgery. Right hip pain Sleep apnea Wears a CPAP Stroke (~10/2018) Chads score =3 Vertigo Surgical History H/O exploratory laparotomy (~06/20/20) Hernia Dr Blackwell History of appendectomy (~1989) History of cholecystectomy (~05/2017) History of colonoscopy (~2017) History of colostomy Due to diverticulitis rupture History of colostomy reversal (~05/2018) History of hernia repair (~1978) History of hip replacement (~2016) History of knee surgery 1978; 2009 History of ventral hernia repair 06/20/2020 Family History Mother Lung cancer High blood pressure Father Lung cancer High blood pressure Brother High blood pressure Sister High blood pressure Social History household members: spouse housing: apartment marital status: occupational 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 and 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: : [place] physical activity: 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 and 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 smoking status: Former smoker alcohol intake frequency: 0-2 drinks per day counseling provided: support program substance use type: does not use concepcion/confucianist: Confucianist seatbelt use: always MEDS/ALLERGIES Home Medications and Allergies Home Medications Medication Instructions Recorded Confirmed Type acetaminophen 325 mg tablet 650 mg PO Q6HP PRN Per Pain 06/21/20 04/10/22 Rx (Tylenol) Protocol/Fever > 101 #60 tabs C-pap and supplies #1 ea 07/25/21 03/29/22 Rx triamcinolone acetonide 0.1 % 1 applic topical BID #30 grams 08/31/21 04/10/22 Rx topical cream trazodone 100 mg tablet 100 mg PO QHS PRN for insomnia #90 02/19/22 04/10/22 Rx tabs sertraline 50 mg tablet 50 mg PO QDAY #90 tabs 03/06/22 04/10/22 Rx peg 3350-electrolytes 236 240 ml PO Q10M #4,000 mL 03/21/22 04/10/22 Rx gram-22.74 gram-6.74 gram-5.86 gram solution (Golytely) Lactobacillus rhamnosus GG 20 1 cell PO QHS #30 caps 03/29/22 04/10/22 Rx billion cell capsule (Probiotic Digestive Care) amlodipine 10 mg tablet 10 mg PO QDAY #90 tabs 04/18/22 Rx losartan 100 mg tablet 100 mg PO QDAY #90 tabs 04/18/22 Rx Allergies Allergy/AdvReac Type Severity Reaction Status Date / Time Latex, Natural Rubber AdvReac Intermediate Rash Verified 04/10/22 07:12 Physical Examination Vital Signs Vital signs: Temp Pulse Resp BP Pulse Ox O2 Del Method O2 Flow Rate 97.5 F 87 17 101/55 91 Nasal Cannula 3.5 07/07/22 12:05 07/07/22 13:01 07/07/22 13:01 07/07/22 13:01 07/07/22 13:01 07/07/22 13:01 07/07/22 13:01 General Appearance General appearance: well-developed, well-nourished and obese EENT EENT: mucous membranes moist Respiratory Respiratory: clear Cardiovascular Cardiology: edema, regular rate and regular rhythm Gastrointestinal Gastrointestinal: tenderness, obese and distended Integumentary Integumentary: no rash and warm and dry Neurologic Neurologic: no focal deficit and alert and oriented x3 Musculoskeletal Musculoskeletal: no deformities Psychiatric Psychiatric: mood/affect appropriate and cooperative Results Lab Results 07/07/22 12:44 Image Kidney/bladder ultrasound: report reviewed A/P Assessment and plan (1) Acute kidney injury with acute tubular necrosis: Assessment and plan: Ander Ortiz is a 62-year-old male with hypertension and remote history of ruptured diverticulitis s/p colostomy and reversal presented to ED for nausea, vomiting and abdominal pain for 3 days. He has not had a bowel movement or urine output. In ED, CT showed colitis. Creatinine was 5.3. He was given 1 L NS. He did not make any urine in ED. Nephrology consultation was requested for acute kidney injury. Acute kidney injury, suspected acute tubular necrosis due to dehydration with metabolic acidosis and hyponatremia, present on arrival. There is no recent history of IV contrast administration or NSAID use. Work up: Urinalysis on 07/07/22: Pending. CT Abdomen and Pelvis without contrast on 07/07/22: There are several small nonobstructing calyceal stones in both kidneys. Largest is in the upper pole of the left kidney measures 3 mm. There is no hydronephrosis. Both ureters are decompressed and there are no stones within the ureters. Urinary bladder is decompressed and partially obscured by beam hardening artifact from bilateral hip prosthesis. There are no apparent bladder stones. Progress: Serum creatinine increased from 1.0 on 02/27/22 to 5.3 on 07/07/22. Baseline serum creatinine: 1.0 on 02/27/22. Urine output: <100 ml reported in the past 24 hours. Metabolic acidosis. Hyponatremia. No uremic symptoms. Recommendations/Plan: Continue IVF resuscitation. No acute hemodialysis need. Urinalysis pending. Avoid NSAIDs, nephrotoxic medications and IV contrast. Monitor BMP and urine output. Status: Acute Time Spent With Patient Time: Total time spent is greater than 50% in coordination of care (as documented) at patient's floor/unit and/or counseling patient:
[2022-07-07 16:46] LABS: Appearance,Urine CLOUDY (Clear); Bacteria,Urine FEW /hpf (0); Bilirubin,Urine Negative (Negative); Color,Urine AMBER; Culture Indicated,Urine Yes; Glucose,Urine (UA) Negative (Negative); Ketones,Urine 5 mg/dL (Negative); Leukocyte Esterase,Urine 25 /uL (Negative); Mucus,Urine MANY /hpf; Nitrate,Urine Negative (Negative); Protein,Urine 100 mg/dL (Negative); Specific Gravity,Urine 1.018 (1.000-1.035); Urine Blood 0.03 mg/dL (Negative); Urine Granular Cast 3 /lph (0-0); Urine Hyaline Cast 112 /lph (0-2); Urine RBC 6 /hpf (0-3); Urine Squamous Epithelial Cell 2 /hpf (0-4); Urine WBC 7 /hpf (0-4)
[2022-07-07 16:58] LABS: Band Neutrophils % 5 % (0-10); Lymphocytes % 9 % (15-49); Macrocytosis 1+ (None Seen); Monocytes % (Manual) 7 % (1-12); Platelet Estimate NORMAL (Normal); RBC Morphology ABNORMAL (Normal); Segmented Neutrophils % 79 % (38-78)
[2022-07-07] MEDS ORDERED: MAGNESIUM SULFATE 2 GM/50 ML BAG IV PRN (18:44)
[2022-07-07] MEDS ORDERED: SUCRALFATE 1 GM/10 ML ORAL.SUSP PO ONE (18:44)
[2022-07-07] MEDS ORDERED: morphine 4 MG/ML VIAL IV PRN (18:44)
[2022-07-07] MEDS ORDERED: ONDANSETRON 4 MG/2 ML VIAL IV PRN (18:44)
[2022-07-07] MEDS ORDERED: POLYETHYLENE GLYCOL 3350 17 GM PACKET PO PRN (18:44)
[2022-07-07] MEDS ORDERED: SENNOSIDES 1 TABLET PO PRN (18:44)
[2022-07-07] MEDS ORDERED: POTASSIUM CHLORIDE 20 MEQ TABLET PO PRN (18:44)
[2022-07-07] MEDS ORDERED: IPRATROPIUM/ALBUTEROL 3 ML AMPUL.NEB NEB PRN (18:44)
[2022-07-07] MEDS: HYDROcodone/APAP 5/325MG TABLET PO PRN (19:32)
[2022-07-07] MEDS ORDERED: HYDROcodone/APAP 5/325MG TABLET PO ONE (19:33)
[2022-07-07] MEDS: 0.9 % SODIUM CHLORIDE 1,000 ML IV SCH (19:56)
[2022-07-07] MEDS: PANTOPRAZOLE 40 MG VIAL IV SCH (20:11)
[2022-07-07] MEDS: metroNIDAZOLE 500 MG/100 ML BAG IV SCH (20:20)
[2022-07-07] MEDS: CIPROFLOXACIN 400 MG/200 ML BAG IV SCH (21:42)
[2022-07-07] MEDS: HEPARIN 5,000 UNIT/ML VIAL SQ SCH (21:42)
[2022-07-07] MEDS: SERTRALINE 50 MG TABLET PO SCH (21:42)
[2022-07-07] MEDS: traZODone HCL 100 MG TABLET PO SCH (21:42)
[2022-07-07] MEDS: 0.9 % SODIUM CHLORIDE 10 ML SYRINGE IV SCH (21:43)
[2022-07-08] MEDS: ACETAMINOPHEN 325 MG TABLET PO PRN ×2 (02:41→20:20)
[2022-07-08] MEDS: HYDROcodone/APAP 5/325MG TABLET PO PRN (03:45)
[2022-07-08] MEDS: 0.9 % SODIUM CHLORIDE 1,000 ML IV SCH ×2 (05:56→10:51)
[2022-07-08] MEDS: metroNIDAZOLE 500 MG/100 ML BAG IV SCH ×3 (06:01→23:16)
[2022-07-08] MEDS: 0.9 % SODIUM CHLORIDE 10 ML SYRINGE IV SCH ×4 (06:18→23:17)
[2022-07-08 06:43] LABS: Basophils # (Auto) 0.01 K/mcL (0.00-0.30); Basophils % (Auto) 0.1 % (0.0-2.0); Eosinophils # (Auto) 0 K/mcL (0.00-0.70); Eosinophils % (Auto) 0 % (0.0-7.0); Hematocrit 37.2 % (40.1-51.0); Hemoglobin 12.9 g/dL (13.7-17.5); Lymphocytes # (Auto) 0.73 K/mcL (1.50-4.80); Lymphocytes % (Auto) 5.7 % (15.5-49.0); Mean Cell Volume 100.5 fL (80.0-100.0); Mean Corpuscular HGB Conc 34.7 g/dL (31.0-36.0); Mean Platelet Volume 11.2 fL (8.8-12.5); Monocytes # (Auto) 1.18 K/mcL (0.10-0.90); Monocytes % (Auto) 9.3 % (1.0-12.0); Neutrophils % (Auto) 84.3 % (38.0-78.0); Platelet Count 147 K/mcL (140-440); Red Cell Distribution Width 12.6 % (11.5-14.5); WBC 12.7 K/mcL (4.5-11.0)
--- NOTE | 2022-07-08 07:12 | EKG ---
[facility] Test Date: 2022-07-07 Pat Name: Ander Ortiz Department: ED Room: Gender: Male [employer] Tester: ZANDER : 1960 Requested By: Osbaldo Salmeron Order Number: [id number] Reading MD: Phoenix Villa Measurements Intervals [place] Rate: 89 P: 24 WV: 159 QRS: 65 QRSD: 114 T: 14 QT: 368 QTc: 448 Interpretive Statements Sinus rhythm Borderline intraventricular conduction delay Borderline T abnormalities, inferior leads Electronically Signed On 07-08-2022 7:11:20 PDT by Phoenix Villa /store/[email or web address]/[id number]
[2022-07-08 07:38] LABS: ALT/SGPT 39 U/L (<40); AST/SGOT 43 U/L (<40); Albumin 4.1 gm/dL (3.2-5.2); Albumin/Globulin Ratio 1.6 (1.0-2.3); Alkaline Phosphatase 104 U/L (39-117); Bilirubin,Direct 0.5 mg/dL (<0.3); Bilirubin,Total 1.3 mg/dL (0.1-1.0); Blood Urea Nitrogen 44 mg/dL (8-23); Calcium 7.5 mg/dL (8.6-10.4); Carbon Dioxide 16 mmol/L (22-30); Chloride 92 mmol/L (96-108); Globulin 2.5 gm/dL (2.2-3.7); Glomerular Filtration Rate 14; Glucose 153 mg/dL (70-105); Lactate Dehydrogenase 249 U/L (135-225); Phosphorous 3.5 mg/dL (2.5-4.5); Triglycerides 250 mg/dL (<150); Uric Acid 10.6 mg/dL (2.5-8.0)
[2022-07-08] MEDS ORDERED: traZODone HCL 100 MG TABLET PO PRN (07:40)
--- NOTE | 2022-07-08 07:40 | Internal Med Progress Note ---
SUBJECTIVE Subjective Patient information: Note initiated : 07/08/22 at 7:38 am Service Date, if different from initiated Date: [] Patient: Ander Ortiz a 62 y/o M admitted on 07/07/22 for diverticulitis. Chief Complaint: [] Interval history: History of present illness: Mr. Ortiz is a 62 year old M Patient states past 2 or 3 days he has been feeling weak and tired and then he developed sharp lower quadrant abdominal pain which he says radiates up through the chest into the neck and bilateral shoulders. Patient states his for the most part constant and feels exactly like when he had diverticulitis. He has not had any fevers or chills but has had headache. He has had no diarrhea. He also developed a chest pain described as pressure that he said radiated up and down his chest and into his neck and bilateral shoulders and has been per much constant but improved now given pain medications that were given. He also has had multiple episodes of nausea vomiting of the past 2 or 3 days and did have pyrosis as well. Troponin was 0.13 and repeat was the same and EKG was unremarkable for ischemic changes. Case was discussed with cardiology who had no acute concerns. He has been quite anxious. He is also complained of shortness of breath over the past few days but He feels it is related to anxiety and his pain and is intermittent. He is saturating at 93% on room air currently. CT abdomen pelvis did show a small moderate effu mihir on the right thoracic cavity. Patient denies coughing. Patient does get winded when ambulating around the house at baseline. Patient has been unable to keep any fluids down because of the nausea vomiting. Patient denies any recent medication changes. Also of note patient was hyponatremic 128. And found to have significant worsening of his renal function with a creatinine of 5.3 and baseline with normal creatinine level. BUN 34. Patient has had poor urine output at home. Case is discussed with nephrology who will follow along. CT abdomen pelvis showed borderline thickening of the proximal and distal large bowel with surrounding formation suspicious for colitis. IV fluids started in the ED. 07/08 Poor urine output. Further recs per nephrology. Will obtain renal ultrasound. Patient does complain of continued shortness of breath and started requiring 1 to 2 L of oxygen overnight. Patient CPAP machine also malfunctioned and had a poor night sleep. Obtain chest x-ray and likely chest ultrasound to evaluate shortness of breath suspect effusion is a component possible volume overload from the generous IV fluid and poor urine output. elevated bnp, check echo. Leukocytosis but no bandemia. Loose brown stool. Hyponatremia 129. Bicarb 16. Creatinine 4.3 from a [id number] 5.3 yesterday. Elevated uric acid. Patient also complains of Anxiety. Review of Systems: Pertinent positives as above. Denies fever/chills/diarrhea. PHYSICAL EXAM General: Alert, Awake, No acute Distress, obese Eyes/N/T: EOMI, no scleral icterus, Head/Neck: neck supple, full ROM, CV: RRR, No murmurs, Pulm: severely diminished b/l, no wheezing, no respiratory distress Abd: soft, nontender, +BS x4 Ext: no clubbing/cyanosis, 1-2+ b/l LE edema R>L, nontender Neuro: Alert, no focal deficits, moves all extremities, sensations intact b/l upper/lower Psychiatric: Skin: warm/dry, normal color Constitutional Vitals: Vital Signs Temp Pulse Resp BP Pulse Ox O2 Del Method O2 Flow Rate 98.6 F 93 H 24 H 90/71 92 CPAP 2 07/08/22 01:16 07/08/22 06:56 07/08/22 06:56 07/08/22 04:07 07/08/22 06:56 07/08/22 01:16 07/08/22 00:54 Period Temp Pulse Resp BP Sys/Guevara Pulse Ox O2 Del Method O2 Flow Rate Last 24 Hr 97.5 F-99.1 F 87-98 16-30 75-103/47-71 88-99 CPAP-Room Air 0- 3.5 Intake and Output 07/07/22 07/08/22 07/08/22 19:59 03:59 11:59 Intake Total 1999 300 1000 Output Total 100 50 Balance 1999 200 950 Weight 135.987 kg Intake & Output: Intake & Output 07/07/22 07/08/22 07/08/22 19:59 03:59 11:59 Intake Total 1999 300 1000 Output Total 100 50 Balance 1999 200 950 Weight 135.987 kg Intake: IV 1999 300 1000 Sodium Chloride 0.9% 1,000 ml @ 2000 1000 125 mls/hr IV .Q8H [facility] Rx#: [id number] Output: Void Amount 100 Urine/Stool Mix 50 Other: Urine Appearance Clear Urine Color Dark Yellow Stool Color Brown Stool Consistency Loose OBJ DATA Labs 07/08/22 05:38 07/08/22 05:38 Labs: Abnormal Lab Results 07/08/22 07/07/22 07/07/22 05:38 16:52 16:06 WBC 12.7 H RBC 3.70 L Hgb 12.9 L Hct 37.2 L MCV 100.5 H MCH 34.9 H MCHC Immature Gran % (Auto) 0.6 H Neut % (Auto) 84.3 H Lymph % (Auto) 5.7 L Lymph # (Auto) 0.73 L Frontier # (Auto) 1.18 H Seg Neutrophils % Lymphocytes % Immature Gran # 0.08 H Absolute Neutrophils 10.73 H RBC Morphology Macrocytosis POC Sodium POC Chloride POC Total CO2 POC BUN POC Creatinine POC Glucose POC WB Ioniz Calcium Total Bilirubin Direct Bilirubin AST ALT Alkaline Phosphatase C-Reactive Protein 3.80 H NT-Pro-B Natriuret Pep Procalcitonin Urine Appearance Cloudy A Urine Protein 100 A Urine Ketones 5 A Urine Urobilinogen 2.0 A Ur Leukocyte Esterase 25 A Urine RBC 6 H Urine WBC 7 H Urine Bacteria Few A Hyaline Casts 112 H Granular Casts 3 H Urine Mucus Many A POC Troponin I 07/07/22 07/07/22 07/07/22 14:04 14:03 14:03 WBC RBC Hgb Hct MCV MCH MCHC Immature Gran % (Auto) Neut % (Auto) Lymph % (Auto) Lymph # (Auto) Frontier # (Auto) Seg Neutrophils % Lymphocytes % Immature Gran # Absolute Neutrophils RBC Morphology Macrocytosis POC Sodium POC Chloride POC Total CO2 POC BUN POC Creatinine POC Glucose POC WB Ioniz Calcium Total Bilirubin Direct Bilirubin AST ALT Alkaline Phosphatase C-Reactive Protein NT-Pro-B Natriuret Pep 4449.0 H Procalcitonin 0.49 H Urine Appearance Urine Protein Urine Ketones Urine Urobilinogen Ur Leukocyte Esterase Urine RBC Urine WBC Urine Bacteria Hyaline Casts Granular Casts Urine Mucus POC Troponin I 0.13 H 07/07/22 07/07/22 07/07/22 14:03 12:44 12:43 WBC RBC 3.98 L Hgb Hct 38.2 L MCV MCH 34.7 H MCHC 36.1 H Immature Gran % (Auto) Neut % (Auto) 83.1 H Lymph % (Auto) 6.5 L Lymph # (Auto) 0.71 L Frontier # (Auto) 1.07 H Seg Neutrophils % 79 H Lymphocytes % 9 L Immature Gran # Absolute Neutrophils 9.07 H RBC Morphology Abnormal A Macrocytosis 1+ A POC Sodium POC Chloride POC Total CO2 POC BUN POC Creatinine POC Glucose POC WB Ioniz Calcium Total Bilirubin 1.4 H Direct Bilirubin 0.4 H AST 44 H ALT 45 H Alkaline Phosphatase 124 H C-Reactive Protein NT-Pro-B Natriuret Pep Procalcitonin Urine Appearance Urine Protein Urine Ketones Urine Urobilinogen Ur Leukocyte Esterase Urine RBC Urine WBC Urine Bacteria Hyaline Casts Granular Casts Urine Mucus POC Troponin I 07/07/22 07/07/22 12:21 12:18 WBC RBC Hgb Hct MCV MCH MCHC Immature Gran % (Auto) Neut % (Auto) Lymph % (Auto) Lymph # (Auto) Frontier # (Auto) Seg Neutrophils % Lymphocytes % Immature Gran # Absolute Neutrophils RBC Morphology Macrocytosis POC Sodium 128 L POC Chloride 95 L POC Total CO2 18.0 L POC BUN 34 H POC Creatinine 5.3 H* POC Glucose 177 H POC WB Ioniz Calcium 0.97 L Total Bilirubin Direct Bilirubin AST ALT Alkaline Phosphatase C-Reactive Protein NT-Pro-B Natriuret Pep Procalcitonin Urine Appearance Urine Protein Urine Ketones Urine Urobilinogen Ur Leukocyte Esterase Urine RBC Urine WBC Urine Bacteria Hyaline Casts Granular Casts Urine Mucus POC Troponin I 0.13 H Meds: Medications Acetaminophen (Acetaminophen 325 Mg Tablet) 650 mg PO Q6HP PRN; Protocol PRN Reason: Per Pain Protocol/Fever > 101 Last Admin: 07/08/22 02:41 Dose: 650 mg Hydrocodone Bitart/Acetaminophen (Hydrocodone/Apap 5/325mg Tablet) 1 tab PO Q4HP PRN PRN Reason: PAIN LEVEL 3-6 Last Admin: 07/08/22 03:45 Dose: 1 tab Albuterol/Ipratropium (Ipratropium/Albuterol 3 Ml Ampul.Neb) 3 ml NEB Q4HP PRN PRN Reason: Shortness Of Breath Heparin Sodium (Porcine) (Heparin 5,000 Unit/Ml Vial) 5,000 unit SQ Q12 [facility] Last Admin: 07/07/22 21:42 Dose: 5,000 unit Potassium Chloride 40 meq/ (Dextrose) 520 mls @ 130 mls/hr IV UD PRN PRN Reason: Potassium < 3 Magnesium Sulfate (Magnesium Sulfate) 2 gm in 50 mls @ 50 mls/hr IV UD PRN PRN Reason: Magnesium </= 1.6 Sodium Chloride (Sodium Chloride 0.9%) 1,000 mls @ 125 mls/hr IV .Q8H [facility] Stop: 07/08/22 18:43 Last Admin: 07/08/22 05:56 Dose: 125 mls/hr Ciprofloxacin (Cipro) 400 mg in 200 mls @ 200 mls/hr IV Q12H [facility]; Protocol Last Infusion: 07/07/22 22:42 Dose: Infused Metronidazole (Flagyl) 500 mg in 100 mls @ 100 mls/hr IV Q8H [facility]; Protocol Last Admin: 07/08/22 06:01 Dose: 100 mls/hr Morphine Sulfate (Morphine 4 Mg/Ml Vial) 0 mg IV Q3HP PRN PRN Reason: Pain Ondansetron HCl (Ondansetron 4 Mg/2 Ml Vial) 4 mg IV Q4HP PRN PRN Reason: Nausea And Vomiting Pantoprazole Sodium (Pantoprazole 40 Mg Vial) 40 mg IV BIDAC [facility] Last Admin: 07/07/22 20:11 Dose: 40 mg Polyethylene Glycol (Polyethylene Glycol 3350 17 Gm Packet) 17 gm PO DAILYP PRN PRN Reason: Constipation Potassium Chloride (Potassium Chloride 20 Meq Tablet) 40 meq PO UD PRN PRN Reason: Potssium is 3-3.5 Potassium Chloride (Potassium Chloride 20 Meq Tablet) 40 meq PO UD PRN PRN Reason: Potassium < 3 Senna (Sennosides 1 Tablet) 2 tab PO DAILYP PRN PRN Reason: Constipation Sertraline HCl (Sertraline 50 Mg Tablet) 50 mg PO [facility] Last Admin: 07/07/22 21:42 Dose: 50 mg Sodium Chloride (0.9 % Sodium Chloride 10 Ml Syringe) 10 ml IV Q8 [facility] Last Admin: 07/08/22 06:18 Dose: 10 ml Trazodone HCl (Trazodone Hcl 100 Mg Tablet) 100 mg PO [facility] Last Admin: 07/07/22 21:42 Dose: 100 mg A/P Narrative A/P Narrative: A: *TATIANA possible ATN: suspect 2/2 N/V/poor oral intake in setting of ARB use and low BP -poor uop - *Metabolic acidosis: *Colitis(h/o diverticulitis with bowel surgeries): *UTI, complicated: *Acute hypoxic respiratory failure: 2/2 likely volume overload, also right p leural effusion noted on ct a/p yesterday *Hyponatremia: *HTN: borderline hypotension *pyrosis: likely gastro/esophagitis from n/v *Morbid obesity: BMI 44 *MIGDALIA: on CPAP *GERD: *Depression/Anxiety: * P: -IVF's, may need lasix for volume overload -Nephrology following -renal u/s -Monitor UOP, i/o, renal fxn -Follow-up sodium, monitor replace electrolytes -cipro to rocepin to cover urine/flagyl -CT chest for futher eval of hypoxia, cxr showed improved pulm edema but showed bibasilar infiltrates -echo -pain control -ppi for likely gastritis/esophagitis from n/v -Hold Norvasc/losartan for low BP and TATIANA -tele and monitor bp closely -home cpap -PT/OT -ppx: Heparin Time Spent With Patient Time: Total time spent is greater than 50% in coordination of care (as documented) at patient's floor/unit and/or counseling patient: Subsequent: Total time with patient: 50 - 65 Minutes QUALITY VTE Deep Vein Thrombosis/Pulmonary Embolism Present on Admission: No
[2022-07-08] MEDS ORDERED: SODIUM BICARBONATE 650 MG TABLET PO ONE ×2 (07:42→20:00)
--- NOTE | 2022-07-08 07:54 | Nephrology Progress Note ---
SUBJECTIVE Subjective Patient information: Note initiated : 07/08/22 at 7:50 am Patient: Ander Ortiz 62 y/o M admitted on 07/07/22 for diverticulitis. Chief Complaint: Abdominal pain Pertinent ROS: Abdominal pain Dyspnea Constitutional Vitals: Vital Signs Temp Pulse Resp BP Pulse Ox O2 Del Method O2 Flow Rate 98.6 F 93 H 24 H 90/71 92 CPAP 2 07/08/22 01:16 07/08/22 06:56 07/08/22 06:56 07/08/22 04:07 07/08/22 06:56 07/08/22 01:16 07/08/22 00:54 Period Temp Pulse Resp BP Sys/Guevara Pulse Ox O2 Del Method O2 Flow Rate Last 24 Hr 97.5 F-99.1 F 87-98 16-30 75-103/47-71 88-99 CPAP-Room Air 0- 3.5 Intake and Output 07/07/22 07/08/22 07/08/22 19:59 03:59 11:59 Intake Total 2000 300 1000 Output Total 100 50 Balance 2000 200 950 Weight 299 lb 12.8 oz Intake & Output: Intake & Output 07/07/22 07/08/22 07/08/22 19:59 03:59 11:59 Intake Total 2000 300 1000 Output Total 100 50 Balance 2000 200 950 Weight 299 lb 12.8 oz Intake: IV 2000 300 1000 Sodium Chloride 0.9% 1,000 ml @ 2000 1000 125 mls/hr IV .Q8H [facility] Rx#: [id number] Output: Void Amount 100 Urine/Stool Mix 50 Other: Urine Appearance Clear Urine Color Dark Yellow Stool Color Brown Stool Consistency Loose General appearance: cooperative and no acute distress Head Head exam: Present normal inspection Eye Eye exam: Present normal appearance ENT ENT exam: Present mucous membranes moist Respiratory Respiratory exam: Absent respiratory distress Cardiovascular Cardiovascular exam: Present normal rate and rhythm GI/Abdominal GI/Abdominal exam: Present soft, distended and tenderness Extremities Exam Extremities exam: Absent joint swelling or pedal edema Neurological Exam Neurological exam: Present alert and oriented X3 Psychiatric Psychiatric exam: Present normal affect and normal mood Skin Skin exam: Present warm; Absent rash A/P Assessment and plan (1) Acute kidney injury with acute tubular necrosis: Assessment and plan: Ander Ortiz is a 62-year-old male with hypertension and remote history of ruptured diverticulitis s/p colostomy and reversal presented to ED for nausea, vomiting and abdominal pain for 3 days. He has not had a bowel movement or urine output. In ED, CT showed colitis. Creatinine was 5.3. He was given 1 L NS. He did not make any urine in ED. Nephrology consultation was requested for acute kidney injury. Acute kidney injury, suspected acute tubular necrosis due to dehydration with metabolic acidosis and hyponatremia, present on arrival. There is no recent history of IV contrast administration or NSAID use. Work up: Urinalysis on 07/07/22: Lu, cloudy, pH 5.0, SG 1.018, protein 100, blood 0.03, leukocyte esterase 25, urine culture pending. CT Abdomen and Pelvis without contrast on 07/07/22: There are several small nonobstructing calyceal stones in both kidneys. Largest is in the upper pole of the left kidney measures 3 mm. There is no hydronephrosis. Both ureters are decompressed and there are no stones within the ureters. Urinary bladder is decompressed and partially obscured by beam hardening artifact from bilateral hip prosthesis. There are no apparent bladder stones. Progress: Serum creatinine changed from 5.3 (POC) on 07/07/22 to 4.3 on 07/08/22. Baseline serum creatinine: 1.0 on 02/27/22. Urine output: 100 ml reported in the past 24 hours. Metabolic acidosis. Hyponatremia. No uremic symptoms. Fluid overload. I/O: +3.1 L since admit. Recommendations/Plan: IVF: NS at 125 ml/hour. No acute hemodialysis need. Avoid NSAIDs, nephrotoxic medications and IV contrast. Monitor BMP and urine output. Status: Acute Time Spent With Patient Time: Total time spent is greater than 50% in coordination of care (as documented) at patient's floor/unit and/or counseling patient:
[2022-07-08] MEDS: PANTOPRAZOLE 40 MG VIAL IV SCH ×2 (08:01→17:42)
[2022-07-08 08:32] LABS: Band Neutrophils % 1 % (0-10); Lymphocytes % 5 % (15-49); Macrocytosis 1+ (None Seen); Monocytes % (Manual) 5 % (1-12); Platelet Estimate NORMAL (Normal); RBC Morphology ABNORMAL (Normal); Segmented Neutrophils % 89 % (38-78)
[2022-07-08] MEDS: CIPROFLOXACIN 400 MG/200 ML BAG IV SCH (09:03)
--- NOTE | 2022-07-08 09:10 | XRay Report ---
CLINICAL INFORMATION: Follow-up CHF COMPARISON: 07/07/2022 TECHNIQUE: Portable FINDINGS: The heart remains moderately enlarged. Mediastinum is unremarkable. Pulmonary vessels have returned to near-normal in caliber. Moderate bibasilar infiltrates have progressed. Small right pleural effusion also progressing. IMPRESSION: Complete interval resolution of CHF. Moderate bibasilar infiltrates have progressed-suspect aspiration Interpreted and Authenticated by: Edilberto Matos 07/08/22
[2022-07-08] MEDS: LORazepam 2 MG/ML VIAL IV PRN ×4 (09:55→21:12)
[2022-07-08] MEDS ORDERED: LORazepam 2 MG/ML VIAL IV ONE (10:51)
[2022-07-08] MEDS: HEPARIN 5,000 UNIT/ML VIAL SQ SCH ×2 (10:56→23:20)
--- NOTE | 2022-07-08 12:09 | Cat Scan Report ---
CLINICAL INFORMATION: Hypoxia COMPARISON: Plain film 07/07/2022 and 07/08/2022 TECHNIQUE: 0.625 mm axial slices were obtained from the lung apices through the bases without intravenous contrast. 2.5 mm Sagittal, coronal and axial reformatted images were processed and reviewed at bone, lung and soft tissue windows. 7 mm axial MIP images were also reconstructed to optimize pulmonary nodule detection.The exam was performed using radiation dose optimization techniques including, but not limited to, automated exposure control, adjustment of the mA and/or kV according to patient size and use of iterative reconstruction technique. FINDINGS: The pulmonary parenchymal windows show moderate right and small left pleural effusions with consolidated subtotal atelectasis in the medial posterior and lateral basilar right lower lobe segments and subsegmental atelectasis posterior left lower lobe. There is minimal residual edema in the interlobular region of the lungs compatible the recent episode of CHF. Mediastinal windows show the heart is mildly enlarged with moderate fibrofatty calcific plaque in the coronary arteries. The noncontrast thoracic aorta normal in diameter. Pulmonary arteries are mildly distended. The esophagus shows diffuse wall thickening suggesting peptic disease or other infiltrative process. There is a 14 mm short axis lymph node in the lower right paratracheal region with central fat deposition which almost certainly benign reactive lymph node few mildly enlarged lymph nodes in the subcarinal region also noted. Thyroid is normal. Bone windows show syndesmophytes bridging the lower thoracic vertebral bodies suggesting chronic ankylosing spondylitis. Soft tissues the chest wall are unremarkable. Images through the superior abdomen show grossly few small nonobstructing stones in the right superior calyces of both kidneys. IMPRESSION: 1. Mild residual CHF with mild cardiomegaly, mild pulmonary vascular congestion and minimal residual edema in the latter septi. 2. Moderate right and small left oral effusion. Subtotal consolidated atelectasis medial posterior lateral basilar segments of the right lower lobe and subsegmental atelectasis posterior left lower lobe. 3. Syndesmophytes in the mid lower thoracic vertebral bodies suggesting chronic ankylosing spondylitis. 4. Moderate diffuse wall thickening of the esophagus most commonly due to peptic disease or other diffuse infiltrative pathology 5. Bilateral nonobstructing renal stones Interpreted and Authenticated by: Edilberto Matos 07/08/22
--- NOTE | 2022-07-08 12:15 | Ultrasound Report ---
CLINICAL INFORMATION: Acute renal failure COMPARISON: None. FINDINGS: Both kidneys are normal and symmetric in size, position, configuration and echotexture: The right is 11.7 x 5.9 cm and the left is 12.9 x 6.2 cm. There is a 6 mm nonobstructing stone within mid calyx left kidney. There are no solid/cystic lesions, or hydronephrosis. The arterial blood flow is grossly normal to both kidneys on color Doppler. Urinary bladder volume is 27 cc. The patient was unable to void. No focal bladder lesions. Prostate is normal -12 cc IMPRESSION: 6 mm nonobstructing stone mid calyx left kidney. Otherwise normal kidneys, bladder and prostate Interpreted and Authenticated by: Edilberto Matos 07/08/22
[2022-07-08] MEDS: cefTRIAXone 1 GM VIAL IV SCH (14:03)
[2022-07-08] MEDS: SODIUM BICARBONATE 650 MG TABLET PO SCH ×2 (14:07→19:28)
[2022-07-08] MEDS ORDERED: FUROSEMIDE 100 MG/10 ML VIAL IV ONE (17:28)
--- NOTE | 2022-07-08 18:25 | Ultrasound Report ---
Ultrasound-guided thoracentesis CLINICAL INFORMATION: Moderate right pleural effusion TECHNIQUE: Procedure and risks including possibility of bleeding, infection, and pneumothorax were explained to the patient. He understood and wished to proceed. With the patient in upright position, the fluid was first sonographically localized over the posterior right 10th intercostal space at posterior axillary line. The skin overlying this region was marked, prepped and locally anesthetized with 1% lidocaine using a 25-gauge needle to the level the parietal pleura. An 18-gauge Yueh needle was then advanced under sonographic guidance into the pleural fluid and approximately 700 cc of simple appearing transudative fluid was aspirated. Post procedure scanning shows only minimal residual fluid. Patient tolerated procedure well without apparent complication. Follow-up chest x-ray to be obtained IMPRESSION: Successful thoracentesis yielding 700 cc of transudative appearing simple pleural fluid. No apparent complication Interpreted and Authenticated by: Edilberto Matos 07/08/22
--- NOTE | 2022-07-08 18:31 | XRay Report ---
CLINICAL INFORMATION: Post right thoracentesis COMPARISON: 07/08/2022 TECHNIQUE: Portable FINDINGS: Moderate cardiomegaly is unchanged. Mediastinum is unremarkable. Pulmonary vessels are slightly distended no definite interstitial edema. Following right thoracentesis, there is no residual right pleural effusion. No pneumothorax or other complication. Mild bibasilar airspace disease likely represents atelectasis. It has improved on the right following thoracentesis. IMPRESSION: Following right thoracentesis, pleural effusion has resolved. Atelectasis right lower lobe is also improved. Mild underlying CHF-stable Interpreted and Authenticated by: Edilberto Matos 07/08/22
[2022-07-08 19:13] LABS: pH,Body Fluid 7.67
[2022-07-08 19:21] LABS: Total Protein,Body Fluid 3.1 gm/dL
[2022-07-08] MEDS: traZODone HCL 100 MG TABLET PO SCH (19:27)
[2022-07-08] MEDS: SERTRALINE 50 MG TABLET PO SCH (19:28)
[2022-07-08 19:36] LABS: LDH,Pleural Fluid 186 U/L (<122)
[2022-07-08 20:15] LABS: Appearance,Pleural Fluid Clear; Color,Pleural Fluid Yellow; Lymphocytes,Pleural Fluid 7 %; Mesothelial,Pleural Fluid 18 %; Monocytes,Pleural Fluid 24 %; Neutrophils,Pleural Fluid 51 %; Nucleated Cells,Pleural Fld 451 /cumm; RBC,Pleural Fluid <50,000 /cumm
[2022-07-08] MEDS ORDERED: OLANZapine 5 MG TABLET PO ONE (20:34)
[2022-07-08] MEDS ORDERED: LORazepam 2 MG/ML VIAL ONE (20:53)
[2022-07-08] MEDS ORDERED: SERTRALINE 50 MG TABLET PO SCH (21:00)
[2022-07-08] MEDS ORDERED: HALOPERIDOL LACTATE 5 MG/ML VIAL IV ONE (21:27)
[2022-07-08] MEDS ORDERED: HALOPERIDOL LACTATE 5 MG/ML VIAL ONE (21:29)
[2022-07-08] MEDS: MULTIVIT,THER IRON,CA,FA & MIN 1 TABLET PO SCH (22:10)
[2022-07-08] MEDS: FOLIC ACID 1 MG TABLET PO SCH (22:10)
[2022-07-08] MEDS ORDERED: THIAMINE 100 MG/ML VIAL ONE (23:23)
[2022-07-08] MEDS: THIAMINE 100 MG in 0.9 % SODIUM CHLORIDE 50 ML IV SCH (23:32)
[2022-07-09] MEDS: LORazepam 2 MG/ML VIAL IV PRN ×4 (01:23→06:46)
[2022-07-09] MEDS: HALOPERIDOL LACTATE 5 MG/ML VIAL IM PRN ×5 (01:29→22:24)
[2022-07-09] MEDS: metroNIDAZOLE 500 MG/100 ML BAG IV SCH ×3 (05:01→22:40)
[2022-07-09] MEDS: 0.9 % SODIUM CHLORIDE 10 ML SYRINGE IV SCH ×3 (05:09→22:00)
[2022-07-09] MEDS: PANTOPRAZOLE 40 MG VIAL IV SCH ×2 (06:34→18:34)
[2022-07-09 07:09] LABS: Basophils # (Auto) 0 K/mcL (0.00-0.30); Basophils % (Auto) 0 % (0.0-2.0); Eosinophils # (Auto) 0 K/mcL (0.00-0.70); Eosinophils % (Auto) 0 % (0.0-7.0); Hematocrit 33.6 % (40.1-51.0); Hemoglobin 11.3 g/dL (13.7-17.5); Lymphocytes # (Auto) 0.72 K/mcL (1.50-4.80); Lymphocytes % (Auto) 7.6 % (15.5-49.0); Mean Cell Volume 101.8 fL (80.0-100.0); Mean Corpuscular HGB Conc 33.6 g/dL (31.0-36.0); Mean Platelet Volume 11.6 fL (8.8-12.5); Monocytes # (Auto) 1.08 K/mcL (0.10-0.90); Monocytes % (Auto) 11.3 % (1.0-12.0); Neutrophils % (Auto) 80.3 % (38.0-78.0); Platelet Count 118 K/mcL (140-440); Red Cell Distribution Width 12.2 % (11.5-14.5); WBC 9.5 K/mcL (4.5-11.0)
[2022-07-09] MEDS: DEXMEDETOMIDINE 400 MCG in PREMIX 1 BAG IV SCH ×3 (07:39→23:55)
[2022-07-09] MEDS ORDERED: DEXMEDETOMIDINE 100 ML IV ONE (07:39)
[2022-07-09 08:04] LABS: ALT/SGPT 34 U/L (<40); AST/SGOT 45 U/L (<40); Albumin 3.7 gm/dL (3.2-5.2); Albumin/Globulin Ratio 1.4 (1.0-2.3); Alkaline Phosphatase 92 U/L (39-117); Bilirubin,Direct 0.4 mg/dL (<0.3); Bilirubin,Total 0.9 mg/dL (0.1-1.0); Blood Urea Nitrogen 59 mg/dL (8-23); Calcium 7.1 mg/dL (8.6-10.4); Carbon Dioxide 16 mmol/L (22-30); Chloride 93 mmol/L (96-108); Globulin 2.7 gm/dL (2.2-3.7); Glomerular Filtration Rate 13; Glucose 132 mg/dL (70-105); Lactate Dehydrogenase 286 U/L (135-225); Phosphorous 4.4 mg/dL (2.5-4.5); Triglycerides 123 mg/dL (<150)
--- NOTE | 2022-07-09 08:04 | Internal Med Progress Note ---
SUBJECTIVE Subjective Patient information: Note initiated : 07/09/22 at 7:59 am Service Date, if different from initiated Date: [] Patient: Ander Ortiz a 62 y/o M admitted on 07/07/22 for diverticulitis. Chief Complaint: [] Interval history: History of present illness: Mr. Ortiz is a 62 year old M Patient states past 2 or 3 days he has been feeling weak and tired and then he developed sharp lower quadrant abdominal pain which he says radiates up through the chest into the neck and bilateral shoulders. Patient states his for the most part constant and feels exactly like when he had diverticulitis. He has not had any fevers or chills but has had headache. He has had no diarrhea. He also developed a chest pain described as pressure that he said radiated up and down his chest and into his neck and bilateral shoulders and has been per much constant but improved now given pain medications that were given. He also has had multiple episodes of nausea vomiting of the past 2 or 3 days and did have pyrosis as well. Troponin was 0.13 and repeat was the same and EKG was unremarkable for ischemic changes. Case was discussed with cardiology who had no acute concerns. He has been quite anxious. He is also complained of shortness of breath over the past few days but He feels it is related to anxiety and his pain and is intermittent. He is saturating at 93% on room air currently. CT abdomen pelvis did show a small moderate effu mihir on the right thoracic cavity. Patient denies coughing. Patient does get winded when ambulating around the house at baseline. Patient has been unable to keep any fluids down because of the nausea vomiting. Patient denies any recent medication changes. Also of note patient was hyponatremic 128. And found to have significant worsening of his renal function with a creatinine of 5.3 and baseline with normal creatinine level. BUN 34. Patient has had poor urine output at home. Case is discussed with nephrology who will follow along. CT abdomen pelvis showed borderline thickening of the proximal and distal large bowel with surrounding formation suspicious for colitis. IV fluids started in the ED. 07/08 Poor urine output. Further recs per nephrology. Will obtain renal ultrasound. Patient does complain of continued shortness of breath and started requiring 1 to 2 L of oxygen overnight. Patient CPAP machine also malfunctioned and had a poor night sleep. Obtain chest x-ray and likely chest ultrasound to evaluate shortness of breath suspect effusion is a component possible volume overload from the generous IV fluid and poor urine output. elevated bnp, check echo. Leukocytosis but no bandemia. Loose brown stool. Hyponatremia 129. Bicarb 16. Creatinine 4.3 from a [id number] 5.3 yesterday. Elevated uric acid. Patient also complains of Anxiety. Patient certain become agitated and impulsive. Updated information from family is that he is a heavy drinker and has similar symptoms when he starts to go through withdrawal. We will start CIWA protocol and as needed benzodiazepines. 07/09 Patient went to severe alcohol withdrawal and DTs yesterday evening. Patient given high-dose Ativan through the night. Started low-dose Precedex this morning. Renal function improving. Patient did have some increased urine output after the Lasix yesterday. Leukocytosis resolved. Hyponatremia. Metabolic acidosis. Nephrology following. Review of Systems: Unable to obtain given patient's altered mental state PHYSICAL EXAM General: Sleeping, No acute Distress, obese Eyes/N/T: EOMI, no scleral icterus, Head/Neck: neck supple, full ROM, CV: RRR, No murmurs, Pulm: diminished b/l, no wheezing, no respiratory distress Abd: soft, nontender, +BS x4 Ext: no clubbing/cyanosis, 2+ b/l LE edema R>L, nontender Neuro: Sedated, spontaneously moves all extremities, PEERL Psychiatric: Skin: warm/dry, normal color Constitutional Vitals: Vital Signs Temp Pulse Resp BP Pulse Ox O2 Del Method O2 Flow Rate 97.7 F 93 H 28 H 113/97 91 BiPAP 6 07/09/22 04:08 07/09/22 07:35 07/09/22 07:35 07/09/22 06:03 07/09/22 07:35 07/09/22 07:07 07/08/22 18:04 Period Temp Pulse Resp BP Sys/Guevara Pulse Ox O2 Del Method O2 Flow Rate Last 24 Hr 97.7 F-98.8 F 53-101 10-34 76-118/56-103 84-100 BiPAP-Oxymask, BiPAP 2-10 Intake and Output 07/08/22 07/09/22 07/09/22 19:59 03:59 11:59 Intake Total 1008 151 100 Output Total 125 175 150 Balance Weight 138.074 kg Intake & Output: Intake & Output 07/08/22 07/09/22 07/09/22 19:59 03:59 11:59 Intake Total 1008 151 100 Output Total 125 175 150 Balance 50 Weight 138.074 kg Intake: IV 408 151 100 Sodium Chloride 0.9% 1,000 ml @ 308 125 mls/hr IV .Q8H RAZ Rx#: [id number] Vitamin B1 100 mg In Sodium 51 Chloride 0.9% 50 ml @ 50 mls/hr IV DAILY [facility] Rx#:[id number] Oral 600 Output: Void Amount 125 175 150 Other: Urine Appearance Clear Clear Clear Urine Color Tea Colored Dark Lu Tea Colored Urine Odor Strong Stool Size Smear Stool Color Brown # of times incontinent of 1 Bowels OBJ DATA Labs 07/09/22 05:37 07/08/22 05:38 Labs: Abnormal Lab Results 07/09/22 07/08/22 07/08/22 05:37 17:00 05:38 WBC RBC 3.30 L Hgb 11.3 L Hct 33.6 L MCV 101.8 H MCH 34.2 H MCHC Plt Count 118 L Immature Gran % (Auto) 0.8 H Neut % (Auto) 80.3 H Lymph % (Auto) 7.6 L Lymph # (Auto) 0.72 L [place] # (Auto) 1.08 H Seg Neutrophils % Lymphocytes % Immature Gran # 0.08 H Absolute Neutrophils RBC Morphology Macrocytosis POC Sodium Sodium 129 L POC Chloride Chloride 92 L Carbon Dioxide 16 L POC Total CO2 Anion Gap 21.0 H POC BUN BUN 44 H Creatinine 4.3 H POC Creatinine Glucose 153 H POC Glucose Uric Acid 10.6 H Calcium 7.5 L POC WB Ioniz Calcium Total Bilirubin 1.3 H Direct Bilirubin 0.5 H AST 43 H ALT Alkaline Phosphatase Lactate Dehydrogenase 249 H C-Reactive Protein NT-Pro-B Natriuret Pep Triglycerides 250 H Procalcitonin Urine Appearance Urine Protein Urine Ketones Urine Urobilinogen Ur Leukocyte Esterase Urine RBC Urine WBC Urine Bacteria Hyaline Casts Granular Casts Urine Mucus Pleural LDH 186 H POC Troponin I 07/08/22 07/08/22 07/08/22 05:38 05:38 05:30 WBC 12.7 H RBC 3.70 L Hgb 12.9 L Hct 37.2 L MCV 100.5 H MCH 34.9 H MCHC Plt Count Immature Gran % (Auto) 0.6 H Neut % (Auto) 84.3 H Lymph % (Auto) 5.7 L Lymph # (Auto) 0.73 L [place] # (Auto) 1.18 H Seg Neutrophils % 89 H Lymphocytes % 5 L Immature Gran # 0.08 H Absolute Neutrophils 10.73 H RBC Morphology Abnormal A Macrocytosis 1+ A POC Sodium Sodium POC Chloride Chloride Carbon Dioxide POC Total CO2 Anion Gap POC BUN BUN Creatinine POC Creatinine Glucose POC Glucose Uric Acid Calcium POC WB Ioniz Calcium Total Bilirubin Direct Bilirubin AST ALT Alkaline Phosphatase Lactate Dehydrogenase C-Reactive Protein NT-Pro-B Natriuret Pep Triglycerides Procalcitonin 0.64 H Urine Appearance Urine Protein Urine Ketones Urine Urobilinogen Ur Leukocyte Esterase Urine RBC Urine WBC Urine Bacteria Hyaline Casts Granular Casts Urine Mucus Pleural LDH POC Troponin I 07/07/22 07/07/22 07/07/22 16:52 16:06 14:04 WBC RBC Hgb Hct MCV MCH MCHC Plt Count Immature Gran % (Auto) Neut % (Auto) Lymph % (Auto) Lymph # (Auto) [place] # (Auto) Seg Neutrophils % Lymphocytes % Immature Gran # Absolute Neutrophils RBC Morphology Macrocytosis POC Sodium Sodium POC Chloride Chloride Carbon Dioxide POC Total CO2 Anion Gap POC BUN BUN Creatinine POC Creatinine Glucose POC Glucose Uric Acid Calcium POC WB Ioniz Calcium Total Bilirubin Direct Bilirubin AST ALT Alkaline Phosphatase Lactate Dehydrogenase C-Reactive Protein 3.80 H NT-Pro-B Natriuret Pep Triglycerides Procalcitonin Urine Appearance Cloudy A Urine Protein 100 A Urine Ketones 5 A Urine Urobilinogen 2.0 A Ur Leukocyte Esterase 25 A Urine RBC 6 H Urine WBC 7 H Urine Bacteria Few A Hyaline Casts 112 H Granular Casts 3 H Urine Mucus Many A Pleural LDH POC Troponin I 0.13 H 07/07/22 07/07/22 07/07/22 14:03 14:03 14:03 WBC RBC Hgb Hct MCV MCH MCHC Plt Count Immature Gran % (Auto) Neut % (Auto) Lymph % (Auto) Lymph # (Auto) [place] # (Auto) Seg Neutrophils % 79 H Lymphocytes % 9 L Immature Gran # Absolute Neutrophils RBC Morphology Abnormal A Macrocytosis 1+ A POC Sodium Sodium POC Chloride Chloride Carbon Dioxide POC Total CO2 Anion Gap POC BUN BUN Creatinine POC Creatinine Glucose POC Glucose Uric Acid Calcium POC WB Ioniz Calcium Total Bilirubin Direct Bilirubin AST ALT Alkaline Phosphatase Lactate Dehydrogenase C-Reactive Protein NT-Pro-B Natriuret Pep 4449.0 H Triglycerides Procalcitonin 0.49 H Urine Appearance Urine Protein Urine Ketones Urine Urobilinogen Ur Leukocyte Esterase Urine RBC Urine WBC Urine Bacteria Hyaline Casts Granular Casts Urine Mucus Pleural LDH POC Troponin I 07/07/22 07/07/22 07/07/22 12:44 12:43 12:21 WBC RBC 3.98 L Hgb Hct 38.2 L MCV MCH 34.7 H MCHC 36.1 H Plt Count Immature Gran % (Auto) Neut % (Auto) 83.1 H Lymph % (Auto) 6.5 L Lymph # (Auto) 0.71 L [place] # (Auto) 1.07 H Seg Neutrophils % Lymphocytes % Immature Gran # Absolute Neutrophils 9.07 H RBC Morphology Macrocytosis POC Sodium 128 L Sodium POC Chloride 95 L Chloride Carbon Dioxide POC Total CO2 18.0 L Anion Gap POC BUN 34 H BUN Creatinine POC Creatinine 5.3 H* Glucose POC Glucose 177 H Uric Acid Calcium POC WB Ioniz Calcium 0.97 L Total Bilirubin 1.4 H Direct Bilirubin 0.4 H AST 44 H ALT 45 H Alkaline Phosphatase 124 H Lactate Dehydrogenase C-Reactive Protein NT-Pro-B Natriuret Pep Triglycerides Procalcitonin Urine Appearance Urine Protein Urine Ketones Urine Urobilinogen Ur Leukocyte Esterase Urine RBC Urine WBC Urine Bacteria Hyaline Casts Granular Casts Urine Mucus Pleural LDH POC Troponin I 07/07/22 12:18 WBC RBC Hgb Hct MCV MCH MCHC Plt Count Immature Gran % (Auto) Neut % (Auto) Lymph % (Auto) Lymph # (Auto) [place] # (Auto) Seg Neutrophils % Lymphocytes % Immature Gran # Absolute Neutrophils RBC Morphology Macrocytosis POC Sodium Sodium POC Chloride Chloride Carbon Dioxide POC Total CO2 Anion Gap POC BUN BUN Creatinine POC Creatinine Glucose POC Glucose Uric Acid Calcium POC WB Ioniz Calcium Total Bilirubin Direct Bilirubin AST ALT Alkaline Phosphatase Lactate Dehydrogenase C-Reactive Protein NT-Pro-B Natriuret Pep Triglycerides Procalcitonin Urine Appearance Urine Protein Urine Ketones Urine Urobilinogen Ur Leukocyte Esterase Urine RBC Urine WBC Urine Bacteria Hyaline Casts Granular Casts Urine Mucus Pleural LDH POC Troponin I 0.13 H Meds: Medications Acetaminophen (Acetaminophen 325 Mg Tablet) 650 mg PO Q6HP PRN; Protocol PRN Reason: Per Pain Protocol/Fever > 101 Last Admin: 07/08/22 20:20 Dose: 650 mg Hydrocodone Bitart/Acetaminophen (Hydrocodone/Apap 5/325mg Tablet) 1 tab PO Q4HP PRN PRN Reason: PAIN LEVEL 3-6 Last Admin: 07/08/22 03:45 Dose: 1 tab Albuterol/Ipratropium (Ipratropium/Albuterol 3 Ml Ampul.Neb) 3 ml NEB Q4HP PRN PRN Reason: Shortness Of Breath Ceftriaxone Sodium (Ceftriaxone 1 Gm Vial) 1 gm IV Q24H RAZ; Protocol Last Admin: 07/08/22 14:03 Dose: 1 gm Chlordiazepoxide HCl (Chlordiazepoxide 25 Mg Capsule) 50 mg PO UD PRN; Protocol PRN Reason: Alcohol Withdrawal/Assess CIWA Folic Acid (Folic Acid 1 Mg Tablet) 1 mg PO DAILY RAZ Last Admin: 07/08/22 22:10 Dose: Not Given Haloperidol Lactate (Haloperidol Lactate 5 Mg/Ml Vial) 0.5 mg IM Q2HP PRN PRN Reason: Alcohol Withdrawal/Assess CIWA Last Admin: 07/09/22 07:34 Dose: 0.5 mg Heparin Sodium (Porcine) (Heparin 5,000 Unit/Ml Vial) 5,000 unit SQ Q12 RAZ Last Admin: 07/08/22 23:20 Dose: 5,000 unit Potassium Chloride 40 meq/ (Dextrose) 520 mls @ 130 mls/hr IV UD PRN PRN Reason: Potassium < 3 Magnesium Sulfate (Magnesium Sulfate) 2 gm in 50 mls @ 50 mls/hr IV UD PRN PRN Reason: Magnesium </= 1.6 Last Infusion: 07/08/22 11:32 Dose: Infused Metronidazole (Flagyl) 500 mg in 100 mls @ 100 mls/hr IV Q8H RAZ; Protocol Last Infusion: 07/09/22 06:25 Dose: Infused Thiamine HCl 100 mg/ Sodium (Chloride) 51 mls @ 50 mls/hr IV DAILY [facility] Last Infusion: 07/09/22 00:34 Dose: Infused Dexmedetomidine HCl 400 mcg/ (Premix) 100 mls @ 6.904 mls/hr IV .[id number] RAZ; Protocol Last Admin: 07/09/22 07:39 Dose: 0.2 mcg/kg/hr, 6.904 mls/hr Iron Carb/Multivit/[place]/Folic Acid (Multivit,Ther Iron,Ca,Fa & Min 1 Tablet) 1 tab PO DAILY [facility] Last Admin: 07/08/22 22:10 Dose: Not Given Lorazepam (Lorazepam 2 Mg/Ml Vial) 0.5 mg IV Q4-6HP PRN PRN Reason: ANXIETY/SEDATION Last Admin: 07/08/22 19:16 Dose: 0.5 mg Lorazepam (Lorazepam 2 Mg/Ml Vial) 0 mg IV UD PRN; Protocol PRN Reason: Alcohol Withdrawal/Assess CIWA Last Admin: 07/09/22 06:46 Dose: 4 mg Morphine Sulfate (Morphine 4 Mg/Ml Vial) 0 mg IV Q3HP PRN PRN Reason: Pain Ondansetron HCl (Ondansetron 4 Mg/2 Ml Vial) 4 mg IV Q4HP PRN PRN Reason: Nausea And Vomiting Pantoprazole Sodium (Pantoprazole 40 Mg Vial) 40 mg IV BIDAC [facility] Last Admin: 07/09/22 06:34 Dose: 40 mg Polyethylene Glycol (Polyethylene Glycol 3350 17 Gm Packet) 17 gm PO DAILYP PRN PRN Reason: Constipation Potassium Chloride (Potassium Chloride 20 Meq Tablet) 40 meq PO UD PRN PRN Reason: Potssium is 3-3.5 Potassium Chloride (Potassium Chloride 20 Meq Tablet) 40 meq PO UD PRN PRN Reason: Potassium < 3 Senna (Sennosides 1 Tablet) 2 tab PO DAILYP PRN PRN Reason: Constipation Sertraline HCl (Sertraline 50 Mg Tablet) 50 mg PO [facility] Last Admin: 07/08/22 19:28 Dose: 50 mg Sodium Chloride (0.9 % Sodium Chloride 10 Ml Syringe) 10 ml IV Q8 [facility] Last Admin: 07/09/22 05:09 Dose: 10 ml Trazodone HCl (Trazodone Hcl 100 Mg Tablet) 100 mg PO [facility] Last Admin: 07/08/22 19:27 Dose: 100 mg A/P Narrative A/P Narrative: A: *Alcohol use d/o & withdrawal with DT's: *Encephalopathy: 2/2 above *TATIANA likely ATN: suspect 2/2 N/V/poor oral intake in setting of ARB use and low BP -renal u/s no acute -poor uop, improved after lasix but poor again -cr 5.3>4.3>4.4 *Metabolic acidosis: *Colitis(h/o diverticulitis with bowel surgeries): -leukocytosis improved *UTI(Strep agalac), complicated: *Acute hypoxic respiratory failure: 2/2 likely volume overload, also right pleu ral effusion noted on ct a/p yesterday. atelectasis *Right Effusion: -Thora (07/08) of 700cc, exudative by LDH ratio but not by protein ratio, transudative appearance per radiologist *Atelectasis *Hyponatremia: *HTN: borderline hypotension *Pyrosis/GERD:: likely gastro/esophagitis from n/v *Macrocytosis: likey chronic etoh, check b12/folate *Morbid obesity: BMI 44 *MIGDALIA: on CPAP *Depression/Anxiety: P: -CIWA, prn benzo, vitamins/minterals -requiring precedex today -IVF's and diuretics per nephrology -Nephrology following -Monitor UOP, i/o, renal fxn -Follow-up sodium, monitor replace electrolytes -rocephin/flagyl -IS -dvt eval -pain control -ppi for likely gastritis/esophagitis from n/v -Hold Norvasc/losartan for low BP and TATIANA -tele and monitor bp closely -home cpap -PT/OT -ppx: Heparin / ppi Time Spent With Patient Time: Total time spent is greater than 50% in coordination of care (as documented) at patient's floor/unit and/or counseling patient: Critical Care Time: Yes Total Critical Care Time: 70 QUALITY VTE Deep Vein Thrombosis/Pulmonary Embolism Present on Admission: No Restraints Restraint In Place: Yes Reason for restraints: to prevent lines from accidentally being pulled.
[2022-07-09] MEDS: cefTRIAXone 1 GM VIAL IV SCH (08:50)
[2022-07-09] MEDS: THIAMINE 100 MG in 0.9 % SODIUM CHLORIDE 50 ML IV SCH (08:50)
[2022-07-09] MEDS ORDERED: FUROSEMIDE 100 MG/10 ML VIAL IV ONE (08:50)
[2022-07-09] MEDS: FOLIC ACID 1 MG TABLET PO SCH (08:51)
[2022-07-09] MEDS: HEPARIN 5,000 UNIT/ML VIAL SQ SCH ×2 (08:51→22:33)
[2022-07-09] MEDS: MULTIVIT,THER IRON,CA,FA & MIN 1 TABLET PO SCH (08:51)
--- NOTE | 2022-07-09 08:54 | Nephrology Progress Note ---
SUBJECTIVE Subjective Patient information: Note initiated : 07/09/22 at 8:50 am Patient: Ander Ortiz 62 y/o M admitted on 07/07/22 for diverticulitis. Chief Complaint: Altered mental status Pertinent ROS: Altered mental status with alcohol withdrawal. Constitutional Vitals: Vital Signs Temp Pulse Resp BP Pulse Ox O2 Del Method O2 Flow Rate 100.1 F H 94 H 21 82/56 95 BiPAP 6 07/09/22 08:02 07/09/22 08:02 07/09/22 08:02 07/09/22 08:02 07/09/22 08:02 07/09/22 08:02 07/08/22 18:04 Period Temp Pulse Resp BP Sys/Guevara Pulse Ox O2 Del Method O2 Flow Rate Last 24 Hr 97.7 F-100.1 F 53-101 10-34 76-118/56-103 84-100 BiPAP- Oxymask, BiPAP 2-10 Intake and Output 07/08/22 07/09/22 07/09/22 19:59 03:59 11:59 Intake Total 1008 151 110 Output Total 125 175 150 Balance 883 -24 -40 Weight 304 lb 6.4 oz Intake & Output: Intake & Output 07/08/22 07/09/22 07/09/22 19:59 03:59 11:59 Intake Total 1008 151 110 Output Total 125 175 150 Balance 883 -24 -40 Weight 304 lb 6.4 oz Intake: IV 408 151 110 Sodium Chloride 0.9% 1,000 ml @ 308 125 mls/hr IV .Q8H RAZ Rx#: [id number] Precedex 400 Mcg/100 ml 10 Dextrose 400 Mcg In Premix 1 Bag @ 0.2 MCG/KG/HR 6.904 mls/ hr IV .[id number] RAZ Rx#: [id number] Vitamin B1 100 mg In Sodium 51 Chloride 0.9% 50 ml @ 50 mls/hr IV DAILY RAZ Rx#:[id number] Oral 600 Output: Void Amount 125 175 150 Other: Urine Appearance Clear Clear Clear Urine Color Tea Colored Dark Lu Tea Colored Urine Odor Strong Stool Size Smear Stool Color Brown # of times incontinent of 1 Bowels General appearance: cooperative and no acute distress Head Head exam: Present normal inspection Eye Eye exam: Present normal appearance ENT ENT exam: Present mucous membranes moist Respiratory Respiratory exam: Absent respiratory distress Cardiovascular Cardiovascular exam: Present normal rate and rhythm GI/Abdominal GI/Abdominal exam: Present soft and distended Extremities Exam Extremities exam: Absent joint swelling or pedal edema Neurological Exam Neurological exam: Present alert and altered Psychiatric Psychiatric exam: Present normal affect and normal mood Skin Skin exam: Present warm; Absent rash A/P Assessment and plan (1) Acute kidney injury with acute tubular necrosis: Assessment and plan: Ander Ortiz is a 62-year-old male with hypertension and remote history of ruptured diverticulitis s/p colostomy and reversal presented to ED for nausea, vomiting and abdominal pain for 3 days. He has not had a bowel movement or urine output. In ED, CT showed colitis. Creatinine was 5.3. He was given 1 L NS. He did not make any urine in ED. Nephrology consultation was requested for acute kidney injury. Acute kidney injury, suspected acute tubular necrosis due to dehydration with metabolic acidosis and hyponatremia, present on arrival. There is no recent history of IV contrast administration or NSAID use. Work up: Renal US on 07/08/22: 6 mm nonobstructing stone mid calyx left kidney. Otherwise normal kidneys, bladder and prostate. Urinalysis on 07/07/22: Lu, cloudy, pH 5.0, SG 1.018, protein 100, blood 0.03, leukocyte esterase 25, urine culture pending. CT Abdomen and Pelvis without contrast on 07/07/22: There are several small nonobstructing calyceal stones in both kidneys. Largest is in the upper pole of the left kidney measures 3 mm. There is no hydronephrosis. Both ureters are decompressed and there are no stones within the ureters. Urinary bladder is decompressed and partially obscured by beam hardening artifact from bilateral hip prosthesis. There are no apparent bladder stones. Progress: Serum creatinine changed from 4.3 to 4.4 in the past 24 hours. Baseline serum creatinine: 1.0 on 02/27/22. Urine output: 350 ml reported in the past 24 hours. Metabolic acidosis, worsening. Hyponatremia, moderate. Unable to evaluate uremic symptoms. Fluid overload. I/O: +4.9 L since admit. Alcohol withdrawal. Recommendations/Plan: IVF discontinued to avoid fluid overload. Furosemide 80 mg IV x 1. Sodium Bicarbonate 1300 mg PO three times daily ordered for worsening metabolic acidosis and hyponatremia. Monitor for acute hemodialysis need. Avoid NSAIDs, nephrotoxic medications and IV contrast. Monitor BMP and urine output. Status: Acute Time Spent With Patient Time: Total time spent is greater than 50% in coordination of care (as documented) at patient's floor/unit and/or counseling patient:
[2022-07-09] MEDS ORDERED: cefTRIAXone 1 GM VIAL IV ONE (10:48)
--- NOTE | 2022-07-09 14:12 | Ultrasound Report ---
CLINICAL INFORMATION: Elevated d-dimer COMPARISON: None. FINDINGS: The entire deep venous system both lower extremities including the common femoral, superficial femoral, popliteal and paired trifurcation calf veins are easily compressible and show normal venous blood flow on color and spectral Doppler. No evidence of thrombus IMPRESSION: Negative exam - no evidence of deep vein thrombosis in both lower extremities. Interpreted and Authenticated by: Edilberto Matos 07/09/22
[2022-07-09] MEDS: chlordiazePOXIDE 25 MG CAPSULE PO PRN ×2 (14:50→19:14)
[2022-07-09] MEDS: SODIUM BICARBONATE 650 MG TABLET PO SCH ×3 (14:51→19:15)
[2022-07-09] MEDS ORDERED: ALBUMIN HUMAN 12.5 GM/50 ML VIAL IV ONE (16:33)
[2022-07-09] MEDS ORDERED: LACTATED RINGERS 250 ML IV ONE (18:10)
[2022-07-09] MEDS: SERTRALINE 50 MG TABLET PO SCH (19:15)
[2022-07-09] MEDS: traZODone HCL 100 MG TABLET PO SCH (19:15)
[2022-07-10] MEDS ORDERED: LACTATED RINGERS 250 ML IV ONE (00:09)
[2022-07-10] MEDS ORDERED: LACTATED RINGERS 1,000 ML IV SCH (00:15)
[2022-07-10] MEDS ORDERED: VASOPRESSIN 20 UNIT/ML VIAL ONE (01:03)
[2022-07-10] MEDS: VASOPRESSIN 20 UNIT in DEXTROSE 5% IN WATER 99 ML IV SCH ×3 (01:10→17:13)
[2022-07-10] MEDS: 0.9 % SODIUM CHLORIDE 250 ML IV SCH ×4 (01:10→17:12)
[2022-07-10] MEDS: DEXMEDETOMIDINE 400 MCG in PREMIX 1 BAG IV SCH ×3 (02:35→12:52)
[2022-07-10] MEDS ORDERED: NOREPINEPHRINE BITARTRATE 4 MG/4 ML VIAL IV ONE (03:08)
[2022-07-10] MEDS: NOREPINEPHRINE BITARTRATE 8 MG in 0.9 % SODIUM CHLORIDE 242 ML IV SCH ×2 (03:19→17:12)
[2022-07-10] MEDS: metroNIDAZOLE 500 MG/100 ML BAG IV SCH ×3 (05:10→21:25)
[2022-07-10] MEDS: 0.9 % SODIUM CHLORIDE 10 ML SYRINGE IV SCH ×3 (06:00→21:25)
--- NOTE | 2022-07-10 08:05 | Internal Med Progress Note ---
SUBJECTIVE Subjective Patient information: Note initiated : 07/10/22 at 7:58 am Service Date, if different from initiated Date: [] Patient: Ander Ortiz a 62 y/o M admitted on 07/07/22 for diverticulitis. Chief Complaint: [] Interval history: History of present illness: Mr. Ortiz is a 62 year old M Patient states past 2 or 3 days he has been feeling weak and tired and then he developed sharp lower quadrant abdominal pain which he says radiates up through the chest into the neck and bilateral shoulders. Patient states his for the most part constant and feels exactly like when he had diverticulitis. He has not had any fevers or chills but has had headache. He has had no diarrhea. He also developed a chest pain described as pressure that he said radiated up and down his chest and into his neck and bilateral shoulders and has been per much constant but improved now given pain medications that were given. He also has had multiple episodes of nausea vomiting of the past 2 or 3 days and did have pyrosis as well. Troponin was 0.13 and repeat was the same and EKG was unremarkable for ischemic changes. Case was discussed with cardiology who had no acute concerns. He has been quite anxious. He is also complained of shortness of breath over the past few days but He feels it is related to anxiety and his pain and is intermittent. He is saturating at 93% on room air currently. CT abdomen pelvis did show a small moderate effu mihir on the right thoracic cavity. Patient denies coughing. Patient does get winded when ambulating around the house at baseline. Patient has been unable to keep any fluids down because of the nausea vomiting. Patient denies any recent medication changes. Also of note patient was hyponatremic 128. And found to have significant worsening of his renal function with a creatinine of 5.3 and baseline with normal creatinine level. BUN 34. Patient has had poor urine output at home. Case is discussed with nephrology who will follow along. CT abdomen pelvis showed borderline thickening of the proximal and distal large bowel with surrounding formation suspicious for colitis. IV fluids started in the ED. 07/08 Poor urine output. Further recs per nephrology. Will obtain renal ultrasound. Patient does complain of continued shortness of breath and started requiring 1 to 2 L of oxygen overnight. Patient CPAP machine also malfunctioned and had a poor night sleep. Obtain chest x-ray and likely chest ultrasound to evaluate shortness of breath suspect effusion is a component possible volume overload from the generous IV fluid and poor urine output. elevated bnp, check echo. Leukocytosis but no bandemia. Loose brown stool. Hyponatremia 129. Bicarb 16. Creatinine 4.3 from a [id number] 5.3 yesterday. Elevated uric acid. Patient also complains of Anxiety. Patient certain become agitated and impulsive. Updated information from family is that he is a heavy drinker and has similar symptoms when he starts to go through withdrawal. We will start CIWA protocol and as needed benzodiazepines. 07/09 Patient went to severe alcohol withdrawal and DTs yesterday evening. Patient given high-dose Ativan through the night. Started low-dose Precedex this morning. Renal function improving. Patient did have some increased urine output after the Lasix yesterday. Leukocytosis resolved. Hyponatremia. Metabolic acidosis. Nephrology following. 07/10 Patient on vasopressors last night because of hypotension. Precedex. BiPAP. Now off BiPAP. On oxy mask and awake.. Chest x-ray status post right thoracentesis showed some atelectasis and minimal underlying CHF which appear to be stable. No pneumonia noted. Weaning vasopressors and Precedex down currently. Creatinine down to 3.8. Hyponatremia. Metabolic acidosis with bicarb of 15. Review of Systems: Unable to obtain given patient's altered mental state PHYSICAL EXAM General: Awake, no acute Distress, obese Eyes/N/T: EOMI, no scleral icterus, Head/Neck: neck supple, full ROM, CV: RRR, No murmurs, Pulm: diminished b/l but better now, no wheezing, no respiratory distress Abd: soft, nontender, +BS x4 Ext: no clubbing/cyanosis, 2+ b/l LE edema R>L, nontender Neuro: Drowsy but awakens and follows commands, spontaneously moves all extremities, PEERL Psychiatric: Skin: warm/dry, normal color Constitutional Vitals: Vital Signs Temp Pulse Resp BP Pulse Ox O2 Del Method O2 Flow Rate 98.6 F 78 22 81/54 94 BiPAP 6 07/09/22 16:00 07/10/22 07:18 07/10/22 07:18 07/09/22 18:01 07/10/22 07:18 07/09/22 16:01 07/08/22 21:56 Period Temp Pulse Resp BP Sys/Guevara Pulse Ox O2 Del Method O2 Flow Rate Last 24 Hr 98.6 F-100.1 F 69-100 10-30 74-136/48-86 87-95 BiPAP-BiPAP Intake and Output 07/09/22 07/10/22 07/10/22 19:59 03:59 11:59 Intake Total 477 547 252 Output Total 325 100 175 Balance 152 447 77 Weight 138.074 kg Intake & Output: Intake & Output 07/09/22 07/10/22 07/10/22 19:59 03:59 11:59 Intake Total 477 547 252 Output Total 325 100 175 Balance 152 447 77 Weight 138.074 kg Intake: IV 477 547 252 Precedex 400 Mcg/100 ml 77 191 152 Dextrose 400 Mcg In Premix 1 Bag @ 0.2 MCG/KG/HR 6.904 mls/ hr IV .[id number] [facility] Rx#: [id number] Lactated Ringers 250 ml @ Wide 250 250 Open IV BOLUS ONE Rx#: [id number] Vasostrict 20 Unit In Dextrose 6 5% in Water 99 ml @ 0.01 UNIT/ MIN 3 mls/hr IV Q17H [facility] Rx#: [id number] Output: Urine Catheter Amount 175 Void Amount 325 100 Other: Urine Appearance Clear Clear Clear Uretheral (Decker) Clear Urine Color Light Lu Dark Lu Dark Lu Uretheral (Decker) Light Lu Urine Odor Strong Normal Stool Size Smear Stool Color Brown OBJ DATA Labs 07/09/22 05:37 07/09/22 05:37 Labs: Abnormal Lab Results 07/09/22 07/09/22 07/09/22 08:31 05:37 05:37 WBC RBC 3.30 L Hgb 11.3 L Hct 33.6 L MCV 101.8 H MCH 34.2 H MCHC Plt Count 118 L Immature Gran % (Auto) 0.8 H Neut % (Auto) 80.3 H Lymph % (Auto) 7.6 L Lymph # (Auto) 0.72 L [place] # (Auto) 1.08 H Seg Neutrophils % Lymphocytes % Immature Gran # 0.08 H Absolute Neutrophils RBC Morphology Macrocytosis D-Dimer 1.45 H POC Sodium Sodium 128 L POC Chloride Chloride 93 L Carbon Dioxide 16 L POC Total CO2 Anion Gap 19.0 H POC BUN BUN 59 H Creatinine 4.4 H POC Creatinine Glucose 132 H POC Glucose Uric Acid 11.0 H Calcium 7.1 L POC WB Ioniz Calcium Total Bilirubin Direct Bilirubin 0.4 H AST 45 H ALT Alkaline Phosphatase Lactate Dehydrogenase 286 H C-Reactive Protein NT-Pro-B Natriuret Pep Triglycerides Procalcitonin Urine Appearance Urine Protein Urine Ketones Urine Urobilinogen Ur Leukocyte Esterase Urine RBC Urine WBC Urine Bacteria Hyaline Casts Granular Casts Urine Mucus Pleural LDH POC Troponin I 07/08/22 07/08/22 07/08/22 17:00 05:38 05:38 WBC 12.7 H RBC 3.70 L Hgb 12.9 L Hct 37.2 L MCV 100.5 H MCH 34.9 H MCHC Plt Count Immature Gran % (Auto) 0.6 H Neut % (Auto) 84.3 H Lymph % (Auto) 5.7 L Lymph # (Auto) 0.73 L [place] # (Auto) 1.18 H Seg Neutrophils % Lymphocytes % Immature Gran # 0.08 H Absolute Neutrophils 10.73 H RBC Morphology Macrocytosis D-Dimer POC Sodium Sodium 129 L POC Chloride Chloride 92 L Carbon Dioxide 16 L POC Total CO2 Anion Gap 21.0 H POC BUN BUN 44 H Creatinine 4.3 H POC Creatinine Glucose 153 H POC Glucose Uric Acid 10.6 H Calcium 7.5 L POC WB Ioniz Calcium Total Bilirubin 1.3 H Direct Bilirubin 0.5 H AST 43 H ALT Alkaline Phosphatase Lactate Dehydrogenase 249 H C-Reactive Protein NT-Pro-B Natriuret Pep Triglycerides 250 H Procalcitonin Urine Appearance Urine Protein Urine Ketones Urine Urobilinogen Ur Leukocyte Esterase Urine RBC Urine WBC Urine Bacteria Hyaline Casts Granular Casts Urine Mucus Pleural LDH 186 H POC Troponin I 07/08/22 07/08/22 07/07/22 05:38 05:30 16:52 WBC RBC Hgb Hct MCV MCH MCHC Plt Count Immature Gran % (Auto) Neut % (Auto) Lymph % (Auto) Lymph # (Auto) [place] # (Auto) Seg Neutrophils % 89 H Lymphocytes % 5 L Immature Gran # Absolute Neutrophils RBC Morphology Abnormal A Macrocytosis 1+ A D-Dimer POC Sodium Sodium POC Chloride Chloride Carbon Dioxide POC Total CO2 Anion Gap POC BUN BUN Creatinine POC Creatinine Glucose POC Glucose Uric Acid Calcium POC WB Ioniz Calcium Total Bilirubin Direct Bilirubin AST ALT Alkaline Phosphatase Lactate Dehydrogenase C-Reactive Protein 3.80 H NT-Pro-B Natriuret Pep Triglycerides Procalcitonin 0.64 H Urine Appearance Urine Protein Urine Ketones Urine Urobilinogen Ur Leukocyte Esterase Urine RBC Urine WBC Urine Bacteria Hyaline Casts Granular Casts Urine Mucus Pleural LDH POC Troponin I 07/07/22 07/07/22 07/07/22 16:06 14:04 14:03 WBC RBC Hgb Hct MCV MCH MCHC Plt Count Immature Gran % (Auto) Neut % (Auto) Lymph % (Auto) Lymph # (Auto) [place] # (Auto) Seg Neutrophils % Lymphocytes % Immature Gran # Absolute Neutrophils RBC Morphology Macrocytosis D-Dimer POC Sodium Sodium POC Chloride Chloride Carbon Dioxide POC Total CO2 Anion Gap POC BUN BUN Creatinine POC Creatinine Glucose POC Glucose Uric Acid Calcium POC WB Ioniz Calcium Total Bilirubin Direct Bilirubin AST ALT Alkaline Phosphatase Lactate Dehydrogenase C-Reactive Protein NT-Pro-B Natriuret Pep Triglycerides Procalcitonin 0.49 H Urine Appearance Cloudy A Urine Protein 100 A Urine Ketones 5 A Urine Urobilinogen 2.0 A Ur Leukocyte Esterase 25 A Urine RBC 6 H Urine WBC 7 H Urine Bacteria Few A Hyaline Casts 112 H Granular Casts 3 H Urine Mucus Many A Pleural LDH POC Troponin I 0.13 H 07/07/22 07/07/22 07/07/22 14:03 14:03 12:44 WBC RBC 3.98 L Hgb Hct 38.2 L MCV MCH 34.7 H MCHC 36.1 H Plt Count Immature Gran % (Auto) Neut % (Auto) 83.1 H Lymph % (Auto) 6.5 L Lymph # (Auto) 0.71 L [place] # (Auto) 1.07 H Seg Neutrophils % 79 H Lymphocytes % 9 L Immature Gran # Absolute Neutrophils 9.07 H RBC Morphology Abnormal A Macrocytosis 1+ A D-Dimer POC Sodium Sodium POC Chloride Chloride Carbon Dioxide POC Total CO2 Anion Gap POC BUN BUN Creatinine POC Creatinine Glucose POC Glucose Uric Acid Calcium POC WB Ioniz Calcium Total Bilirubin Direct Bilirubin AST ALT Alkaline Phosphatase Lactate Dehydrogenase C-Reactive Protein NT-Pro-B Natriuret Pep 4449.0 H Triglycerides Procalcitonin Urine Appearance Urine Protein Urine Ketones Urine Urobilinogen Ur Leukocyte Esterase Urine RBC Urine WBC Urine Bacteria Hyaline Casts Granular Casts Urine Mucus Pleural LDH POC Troponin I 03/07/07/22 07/07/22 12:43 12:21 12:18 WBC RBC Hgb Hct MCV MCH MCHC Plt Count Immature Gran % (Auto) Neut % (Auto) Lymph % (Auto) Lymph # (Auto) [place] # (Auto) Seg Neutrophils % Lymphocytes % Immature Gran # Absolute Neutrophils RBC Morphology Macrocytosis D-Dimer POC Sodium 128 L Sodium POC Chloride 95 L Chloride Carbon Dioxide POC Total CO2 18.0 L Anion Gap POC BUN 34 H BUN Creatinine POC Creatinine 5.3 H* Glucose POC Glucose 177 H Uric Acid Calcium POC WB Ioniz Calcium 0.97 L Total Bilirubin 1.4 H Direct Bilirubin 0.4 H AST 44 H ALT 45 H Alkaline Phosphatase 124 H Lactate Dehydrogenase C-Reactive Protein NT-Pro-B Natriuret Pep Triglycerides Procalcitonin Urine Appearance Urine Protein Urine Ketones Urine Urobilinogen Ur Leukocyte Esterase Urine RBC Urine WBC Urine Bacteria Hyaline Casts Granular Casts Urine Mucus Pleural LDH POC Troponin I 0.13 H Meds: Medications Acetaminophen (Acetaminophen 325 Mg Tablet) 650 mg PO Q6HP PRN; Protocol PRN Reason: Per Pain Protocol/Fever > 101 Last Admin: 07/08/22 20:20 Dose: 650 mg Hydrocodone Bitart/Acetaminophen (Hydrocodone/Apap 5/325mg Tablet) 1 tab PO Q4HP PRN PRN Reason: PAIN LEVEL 3-6 Last Admin: 07/08/22 03:45 Dose: 1 tab Albuterol/Ipratropium (Ipratropium/Albuterol 3 Ml Ampul.Neb) 3 ml NEB Q4HP PRN PRN Reason: Shortness Of Breath Chlordiazepoxide HCl (Chlordiazepoxide 25 Mg Capsule) 50 mg PO UD PRN; Protocol PRN Reason: Alcohol Withdrawal/Assess CIWA Last Admin: 07/09/22 19:14 Dose: 50 mg Folic Acid (Folic Acid 1 Mg Tablet) 1 mg PO DAILY [facility] Last Admin: 07/09/22 08:51 Dose: Not Given Haloperidol Lactate (Haloperidol Lactate 5 Mg/Ml Vial) 0.5 mg IM Q2HP PRN PRN Reason: Alcohol Withdrawal/Assess CIWA Last Admin: 07/09/22 22:24 Dose: 0.5 mg Heparin Sodium (Porcine) (Heparin 5,000 Unit/Ml Vial) 5,000 unit SQ Q12 [facility] Last Admin: 07/09/22 22:33 Dose: 5,000 unit Potassium Chloride 40 meq/ (Dextrose) 520 mls @ 130 mls/hr IV UD PRN PRN Reason: Potassium < 3 Magnesium Sulfate (Magnesium Sulfate) 2 gm in 50 mls @ 50 mls/hr IV UD PRN PRN Reason: Magnesium </= 1.6 Last Infusion: 07/08/22 11:32 Dose: Infused Metronidazole (Flagyl) 500 mg in 100 mls @ 100 mls/hr IV Q8H [facility]; Protocol Last Infusion: 07/10/22 06:10 Dose: Infused Thiamine HCl 100 mg/ Sodium (Chloride) 51 mls @ 50 mls/hr IV DAILY [facility] Last Infusion: 07/09/22 09:50 Dose: Infused Dexmedetomidine HCl 400 mcg/ (Premix) 100 mls @ 6.904 mls/hr IV .[id number] [facility]; Protocol Last Titration: 07/10/22 07:30 Dose: 0.6 mcg/kg/hr, 20.711 mls/hr Ceftriaxone Sodium 2 gm/ (Dextrose) 50 mls @ 100 mls/hr IV Q24H [facility] Vasopressin 20 unit/ Dextrose 100 mls @ 3 mls/hr IV Q17H [facility]; Protocol Last Titration: 07/10/22 02:15 Dose: 0.04 unit/min, 12 mls/hr Sodium Chloride (Sodium Chloride 0.9%) 250 mls @ 20 mls/hr IV .[id number] [facility] Last Admin: 07/10/22 01:10 Dose: 20 mls/hr Norepinephrine Bitartrate 8 mg (/ Sodium Chloride) 250 mls @ 18.75 mls/hr IV Q14H [facility]; Protocol Last Admin: 07/10/22 03:19 Dose: 10 mcg/min, 18.75 mls/hr Sodium Chloride (Sodium Chloride 0.9%) 250 mls @ 20 mls/hr IV .[id number] [facility] Last Admin: 07/10/22 03:02 Dose: Not Given Iron Carb/Multivit/[place]/Folic Acid (Multivit,Ther Iron,Ca,Fa & Min 1 Tablet) 1 tab PO DAILY [facility] Last Admin: 07/09/22 08:51 Dose: Not Given Lorazepam (Lorazepam 2 Mg/Ml Vial) 0.5 mg IV Q4-6HP PRN PRN Reason: ANXIETY/SEDATION Last Admin: 07/08/22 19:16 Dose: 0.5 mg Lorazepam (Lorazepam 2 Mg/Ml Vial) 0 mg IV UD PRN; Protocol PRN Reason: Alcohol Withdrawal/Assess CIWA Last Admin: 07/09/22 06:46 Dose: 4 mg Morphine Sulfate (Morphine 4 Mg/Ml Vial) 0 mg IV Q3HP PRN PRN Reason: Pain Last Admin: 07/10/22 04:40 Dose: 1 mg Ondansetron HCl (Ondansetron 4 Mg/2 Ml Vial) 4 mg IV Q4HP PRN PRN Reason: Nausea And Vomiting Pantoprazole Sodium (Pantoprazole 40 Mg Vial) 40 mg IV BIDAC [facility] Last Admin: 07/09/22 18:34 Dose: 40 mg Polyethylene Glycol (Polyethylene Glycol 3350 17 Gm Packet) 17 gm PO DAILYP PRN PRN Reason: Constipation Potassium Chloride (Potassium Chloride 20 Meq Tablet) 40 meq PO UD PRN PRN Reason: Potssium is 3-3.5 Potassium Chloride (Potassium Chloride 20 Meq Tablet) 40 meq PO UD PRN PRN Reason: Potassium < 3 Senna (Sennosides 1 Tablet) 2 tab PO DAILYP PRN PRN Reason: Constipation Sertraline HCl (Sertraline 50 Mg Tablet) 50 mg PO [facility] Last Admin: 07/09/22 19:15 Dose: 50 mg Sodium Bicarbonate (Sodium Bicarbonate 650 Mg Tablet) 1,300 mg PO TID [facility] Last Admin: 07/09/22 19:15 Dose: 1,300 mg Sodium Chloride (0.9 % Sodium Chloride 10 Ml Syringe) 10 ml IV Q8 [facility] Last Admin: 07/10/22 06:00 Dose: 10 ml Trazodone HCl (Trazodone Hcl 100 Mg Tablet) 100 mg PO [facility] Last Admin: 07/09/22 19:15 Dose: 100 mg A/P Narrative A/P Narrative: A: *Alcohol use d/o & withdrawal with DT's: *Shock: on vasopressors likely 2/2 sedation meds required to control w/d symptoms when BP already soft on admit *Encephalopathy: 2/2 above *TATIANA likely ATN: suspect 2/2 N/V/poor oral intake in setting of ARB use and low BP -renal u/s no acute -poor uop with some mild improvement -cr 5.3>4.3>4.4>3.8 *Metabolic acidosis: *HYponatremia/hypocal: *Colitis(h/o diverticulitis with bowel surgeries): -leukocytosis improved *UTI(Strep agalac), complicated: *Acute hypoxic respiratory failure: multifactorial> right effusion + volume overload initially + rotund abdomen impeding thoracic cavity expansion +atelectasis *Right Effusion: -Thora (07/08) of 700cc, exudative by LDH ratio but not by protein ratio, transudative appearance per radiologist *Atelectasis: *Hyponatremia: *HTN: on ARB/norvasc at home *Pyrosis/GERD:: likely gastro/esophagitis from n/v *Macrocytosis: likey chronic etoh, check b12/folate *Morbid obesity: BMI 44 *MIGDALIA: on CPAP *Depression/Anxiety: P: -CIWA, prn benzo, vitamins/minterals -requiring precedex -wean off vasopressors -IVF's and diuretics per nephrology -Nephrology following -Monitor UOP, i/o, renal fxn -Follow-up sodium, monitor replace electrolytes -rocephin/flagyl -IS -ppi for likely gastritis/esophagitis from n/v -Hold Norvasc/losartan for low BP and TATIANA -home cpap -PT/OT -ppx: Heparin / ppi Time Spent With Patient Time: Total time spent is greater than 50% in coordination of care (as documented) at patient's floor/unit and/or counseling patient: Critical Care Time: Yes Total Critical Care Time: 60 QUALITY VTE Deep Vein Thrombosis/Pulmonary Embolism Present on Admission: No Restraints Restraint In Place: Yes Reason for restraints: keep lines safe given AMS.
[2022-07-10] MEDS: PANTOPRAZOLE 40 MG VIAL IV SCH ×2 (08:07→16:45)
[2022-07-10 08:16] LABS: ALT/SGPT 29 U/L (<40); AST/SGOT 30 U/L (<40); Albumin 3.7 gm/dL (3.2-5.2); Albumin/Globulin Ratio 1.3 (1.0-2.3); Alkaline Phosphatase 91 U/L (39-117); Bilirubin,Direct 0.3 mg/dL (<0.3); Bilirubin,Total 0.8 mg/dL (0.1-1.0); Blood Urea Nitrogen 73 mg/dL (8-23); Calcium 7.4 mg/dL (8.6-10.4); Carbon Dioxide 15 mmol/L (22-30); Chloride 94 mmol/L (96-108); Globulin 2.9 gm/dL (2.2-3.7); Glomerular Filtration Rate 16; Glucose 160 mg/dL (70-105); Lactate Dehydrogenase 255 U/L (135-225); Phosphorous 4.4 mg/dL (2.5-4.5); Triglycerides 108 mg/dL (<150); Uric Acid 12.3 mg/dL (2.5-8.0)
--- NOTE | 2022-07-10 08:27 | Nephrology Progress Note ---
SUBJECTIVE Subjective Patient information: Note initiated : 07/10/22 at 8:23 am Patient: Ander Ortiz 62 y/o M admitted on 07/07/22 for diverticulitis. Chief Complaint: Confused Pertinent ROS: Confused Constitutional Vitals: Vital Signs Temp Pulse Resp BP Pulse Ox O2 Del Method O2 Flow Rate 98.8 F 73 22 94/66 93 BiPAP 6 07/10/22 08:00 07/10/22 08:00 07/10/22 08:00 07/10/22 08:00 07/10/22 08:00 07/10/22 08:00 07/08/22 21:56 Period Temp Pulse Resp BP Sys/Guevara Pulse Ox O2 Del Method O2 Flow Rate Last 24 Hr 98.6 F-99.5 F 69-99 10-30 74-136/48-86 87-95 BiPAP-BiPAP Intake and Output 07/09/22 07/10/22 07/10/22 19:59 03:59 11:59 Intake Total 477 547 265 Output Total 325 100 175 Balance 152 447 90 Weight 304 lb 6.4 oz Intake & Output: Intake & Output 07/09/22 07/10/22 07/10/22 19:59 03:59 11:59 Intake Total 477 547 265 Output Total 325 100 175 Balance 152 447 90 Weight 304 lb 6.4 oz Intake: IV 477 547 265 Precedex 400 Mcg/100 ml 77 191 165 Dextrose 400 Mcg In Premix 1 Bag @ 0.2 MCG/KG/HR 6.904 mls/ hr IV .[id number] [facility] Rx#: [id number] Lactated Ringers 250 ml @ Wide 250 250 Open IV BOLUS ONE Rx#: [id number] Vasostrict 20 Unit In Dextrose 6 5% in Water 99 ml @ 0.01 UNIT/ MIN 3 mls/hr IV Q17H [facility] Rx#: [id number] Output: Urine Catheter Amount 175 Void Amount 325 100 Other: Urine Appearance Clear Clear Clear Uretheral (Decker) Clear Urine Color Light Lu Dark Lu Dark Lu Uretheral (Decker) Light Lu Urine Odor Strong Normal Stool Size Smear Stool Color Brown General appearance: obese Head Head exam: Present normal inspection Eye Eye exam: Present normal appearance ENT ENT exam: Present mucous membranes moist Respiratory Respiratory exam: Absent respiratory distress Cardiovascular Cardiovascular exam: Present normal rate and rhythm GI/Abdominal GI/Abdominal exam: Present soft and distended Extremities Exam Extremities exam: Absent joint swelling or pedal edema Neurological Exam Neurological exam: Present altered Psychiatric Psychiatric exam: Present normal affect and normal mood Skin Skin exam: Present warm; Absent rash A/P Assessment and plan (1) Acute kidney injury with acute tubular necrosis: Assessment and plan: Ander Ortiz is a 62-year-old male with hypertension and remote history of ruptured diverticulitis s/p colostomy and reversal presented to ED for nausea, vomiting and abdominal pain for 3 days. He has not had a bowel movement or urine output. In ED, CT showed colitis. Creatinine was 5.3. He was given 1 L NS. He did not make any urine in ED. Nephrology consultation was requested for acute kidney injury. Acute kidney injury, suspected acute tubular necrosis due to dehydration with metabolic acidosis and hyponatremia, present on arrival. There is no recent history of IV contrast administration or NSAID use. Work up: Renal US on 07/08/22: 6 mm nonobstructing stone mid calyx left kidney. Otherwise normal kidneys, bladder and prostate. Urinalysis on 07/07/22: Lu, cloudy, pH 5.0, SG 1.018, protein 100, blood 0.03, leukocyte esterase 25, urine culture pending. CT Abdomen and Pelvis without contrast on 07/07/22: There are several small nonobstructing calyceal stones in both kidneys. Largest is in the upper pole of the left kidney measures 3 mm. There is no hydronephrosis. Both ureters are decompressed and there are no stones within the ureters. Urinary bladder is decompressed and partially obscured by beam hardening artifact from bilateral hip prosthesis. There are no apparent bladder stones. Progress: Serum creatinine changed from 4.4 to 3.8 in the past 24 hours. Baseline serum creatinine: 1.0 on 02/27/22. Urine output: 575 ml reported in the past 24 hours. Metabolic acidosis, not improved. Hyponatremia, improved. Unable to evaluate uremic symptoms. Fluid overload. I/O: +6.1 L since admit. Alcohol withdrawal. Recommendations/Plan: I informed his at the bedside today. Furosemide 80 mg IV BID ordered. Continue Sodium Bicarbonate 1300 mg PO three times daily ordered for worsening metabolic acidosis and hyponatremia. Monitor for acute hemodialysis need. Avoid NSAIDs, nephrotoxic medications and IV contrast. Monitor BMP and urine output. Status: Acute Time Spent With Patient Time: Total time spent is greater than 50% in coordination of care (as documented) at patient's floor/unit and/or counseling patient:
[2022-07-10] MEDS: FUROSEMIDE 100 MG/10 ML VIAL IV SCH ×2 (08:59→16:44)
[2022-07-10] MEDS ORDERED: cefTRIAXone 2 GM in DEXTROSE 5% IN WATER 50 ML IV SCH (09:00)
[2022-07-10] MEDS: HEPARIN 5,000 UNIT/ML VIAL SQ SCH ×2 (09:02→19:58)
[2022-07-10 09:12] LABS: Hematocrit 34.7 % (40.1-51.0); Hemoglobin 12.2 g/dL (13.7-17.5); Mean Cell Volume 97.2 fL (80.0-100.0); Mean Corpuscular HGB Conc 35.2 g/dL (31.0-36.0); Mean Platelet Volume 11.9 fL (8.8-12.5); Platelet Count 150 K/mcL (140-440); RBC 3.57 M/mcL (4.63-6.08); WBC 9.6 K/mcL (4.5-11.0)
[2022-07-10] MEDS: SODIUM BICARBONATE 650 MG TABLET PO SCH ×3 (10:04→19:58)
[2022-07-10] MEDS: FOLIC ACID 1 MG TABLET PO SCH (10:04)
[2022-07-10] MEDS: MULTIVIT,THER IRON,CA,FA & MIN 1 TABLET PO SCH (10:04)
[2022-07-10] MEDS ORDERED: LACTATED RINGERS 500 ML IV ONE (10:31)
[2022-07-10] MEDS: THIAMINE 100 MG in 0.9 % SODIUM CHLORIDE 50 ML IV SCH (10:34)
[2022-07-10 10:56] LABS: Lymphocytes % 12 % (15-49); Monocytes % (Manual) 10 % (1-12); Platelet Estimate NORMAL (Normal); RBC Morphology NORMAL (Normal); Segmented Neutrophils % 78 % (38-78)
--- NOTE | 2022-07-10 16:43 | Cat Scan Report ---
CLINICAL INFORMATION: COMPARISON: None TECHNIQUE: 0.625 mm axial slices were obtained from the lung apices through the bases without intravenous contrast. 2.5 mm Sagittal, coronal and axial reformatted images were processed and reviewed at bone, lung and soft tissue windows. 7 mm axial MIP images were also reconstructed to optimize pulmonary nodule detection.The exam was performed using radiation dose optimization techniques including, but not limited to, automated exposure control, adjustment of the mA and/or kV according to patient size and use of iterative reconstruction technique. FINDINGS: Bilateral lower lobe infiltrates have worsened and there is now large consolidated infiltrate in the right lower lobe and moderate consolidated infiltrate in the left lower lobe. Small right and [id number] left pleural effusions show slight progression. Mediastinal windows show the heart is mildly enlarged with moderate fibrofatty calcific plaque in the coronary arteries. The noncontrast thoracic aorta normal in diameter. Pulmonary arteries are unremarkable. The esophagus shows diffuse wall thickening suggesting peptic disease or other infiltrative process. There is a 14 mm short axis lymph node in the lower right paratracheal region with central fat deposition which almost certainly benign reactive lymph node few mildly enlarged lymph nodes in the subcarinal region also noted. Thyroid is normal. Bone windows show syndesmophytes bridging the lower thoracic vertebral bodies suggesting chronic ankylosing spondylitis. Soft tissues the chest wall are unremarkable. Images through the superior abdomen show grossly few small nonobstructing stones in the right superior calyces of both kidneys. IMPRESSION: Large consolidated right lower lobe and moderate consolidated left lower lobe infiltrates and moderate bilateral pleural effusions. These have worsened considerably since the comparison exam two days ago. Consider aspiration or pneumonia. No evidence of CHF. Interpreted and Authenticated by: Edilberto Matos 07/10/22
[2022-07-10] MEDS: PIPERACILLIN SODIUM/TAZOBACTAM 3.375 GM in DEXTROSE 5% IN WATER 50 ML IV SCH ×2 (18:34→23:28)
[2022-07-10] MEDS ORDERED: ALBUMIN HUMAN 12.5 GM/50 ML VIAL IV ONE (19:18)
[2022-07-10] MEDS ORDERED: ALBUMIN HUMAN 50 ML IV ONE (19:36)
[2022-07-10] MEDS: traZODone HCL 100 MG TABLET PO SCH (19:58)
[2022-07-10] MEDS: SERTRALINE 50 MG TABLET PO SCH (19:59)
[2022-07-10] MEDS: chlordiazePOXIDE 25 MG CAPSULE PO PRN (19:59)
[2022-07-11] MEDS: 0.9 % SODIUM CHLORIDE 250 ML IV SCH ×3 (00:41→16:19)
[2022-07-11] MEDS: DEXMEDETOMIDINE 400 MCG in PREMIX 1 BAG IV SCH (01:05)
[2022-07-11] MEDS: PIPERACILLIN SODIUM/TAZOBACTAM 3.375 GM in DEXTROSE 5% IN WATER 50 ML IV SCH ×4 (05:07→23:35)
[2022-07-11] MEDS: metroNIDAZOLE 500 MG/100 ML BAG IV SCH (05:39)
[2022-07-11] MEDS: 0.9 % SODIUM CHLORIDE 10 ML SYRINGE IV SCH ×4 (05:39→23:35)
[2022-07-11] MEDS: NOREPINEPHRINE BITARTRATE 8 MG in 0.9 % SODIUM CHLORIDE 242 ML IV SCH (05:45)
[2022-07-11 07:21] LABS: ALT/SGPT 22 U/L (<40); AST/SGOT 19 U/L (<40); Albumin 3.4 gm/dL (3.2-5.2); Albumin/Globulin Ratio 1.3 (1.0-2.3); Alkaline Phosphatase 80 U/L (39-117); Bilirubin,Direct 0.3 mg/dL (<0.3); Bilirubin,Total 0.6 mg/dL (0.1-1.0); Blood Urea Nitrogen 65 mg/dL (8-23); Calcium 7.6 mg/dL (8.6-10.4); Carbon Dioxide 23 mmol/L (22-30); Chloride 101 mmol/L (96-108); Globulin 2.7 gm/dL (2.2-3.7); Glomerular Filtration Rate 28; Glucose 106 mg/dL (70-105); Lactate Dehydrogenase 226 U/L (135-225); Phosphorous 4.1 mg/dL (2.5-4.5); Triglycerides 100 mg/dL (<150); Uric Acid 13.3 mg/dL (2.5-8.0)
[2022-07-11] MEDS: POTASSIUM CHLORIDE 20 MEQ TABLET PO PRN (07:26)
[2022-07-11] MEDS: PANTOPRAZOLE 40 MG VIAL IV SCH ×2 (07:26→16:49)
--- NOTE | 2022-07-11 07:36 | Nephrology Progress Note ---
SUBJECTIVE Subjective Patient information: Note initiated : 07/11/22 at 7:32 am Patient: Ander Ortiz 62 y/o M admitted on 07/07/22 for diverticulitis. Chief Complaint: Weakness Pertinent ROS: Confusion resolved Weakness Dyspnea Constitutional Vitals: Vital Signs Temp Pulse Resp BP Pulse Ox O2 Del Method O2 Flow Rate 98.4 F 86 18 102/74 94 Oxymask 10 07/11/22 04:00 07/11/22 07:03 07/11/22 07:03 07/11/22 07:00 07/11/22 07:03 07/11/22 07:03 07/11/22 07:03 Period Temp Pulse Resp BP Sys/Guevara Pulse Ox O2 Del Method O2 Flow Rate Last 24 Hr 98.4 F-99.6 F 71-100 10-37 80-116/56-74 83-97 BiPAP-Oxymask 10-15 Intake and Output 07/10/22 07/11/22 07/11/22 19:59 03:59 11:59 Intake Total 503 450 390 Output Total 1380 2340 900 Balance -877 -1890 -510 Weight 302 lb 11.2 oz Intake & Output: Intake & Output 07/10/22 07/11/22 07/11/22 19:59 03:59 11:59 Intake Total 503 450 390 Output Total 1380 2340 900 Balance -877 -1890 -510 Weight 302 lb 11.2 oz Intake: IV 263 450 150 Sodium Chloride 0.9% 250 ml @ 250 20 mls/hr IV .[id number] RAZ Rx#: [id number] Levophed 8 mg In Sodium 55 Chloride 0.9% 242 ml @ 10 MCG/ MIN 18.75 mls/hr IV Q14H RAZ Rx #:[id number] Zosyn 3.375 gm In Dextrose 5% 50 50 50 in Water 50 ml @ 100 mls/hr IV Q6H RAZ Rx#:[id number] Vasostrict 20 Unit In Dextrose 58 5% in Water 99 ml @ 0.01 UNIT/ MIN 3 mls/hr IV Q17H RAZ Rx#: [id number] Oral 240 240 Output: Urine Catheter Amount 1380 2340 900 Other: Urine Appearance Clear Clear Clear Urine Color Pale Pale Yellow Stool Size Moderate Stool Color Brown Green Stool Consistency Liquid Watery Loose # Bowel Movements 1 # of times incontinent of 1 Bowels General appearance: obese Head Head exam: Present normal inspection Eye Eye exam: Present normal appearance ENT ENT exam: Present mucous membranes moist Respiratory Respiratory exam: Absent respiratory distress Cardiovascular Cardiovascular exam: Present normal rate and rhythm GI/Abdominal GI/Abdominal exam: Present soft and distended Extremities Exam Extremities exam: Absent joint swelling or pedal edema Neurological Exam Neurological exam: Present alert Psychiatric Psychiatric exam: Present normal affect and normal mood Skin Skin exam: Present warm; Absent rash A/P Assessment and plan (1) Acute kidney injury with acute tubular necrosis: Assessment and plan: Ander Ortiz is a 62-year-old male with hypertension and remote history of ruptured diverticulitis s/p colostomy and reversal presented to ED for nausea, vomiting and abdominal pain for 3 days. He has not had a bowel movement or urine output. In ED, CT showed colitis. Creatinine was 5.3. He was given 1 L NS. He did not make any urine in ED. Nephrology consultation was requested for acute kidney injury. Acute kidney injury, suspected acute tubular necrosis due to dehydration with metabolic acidosis and hyponatremia, present on arrival, resolving. Work up: Renal US on 07/08/22: 6 mm nonobstructing stone mid calyx left kidney. Otherwise normal kidneys, bladder and prostate. Urinalysis on 07/07/22: Lu, cloudy, pH 5.0, SG 1.018, protein 100, blood 0.03, leukocyte esterase 25, urine culture pending. CT Abdomen and Pelvis without contrast on 07/07/22: There are several small nonobstructing calyceal stones in both kidneys. Largest is in the upper pole of the left kidney measures 3 mm. There is no hydronephrosis. Both ureters are decompressed and there are no stones within the ureters. Urinary bladder is decompressed and partially obscured by beam hardening artifact from bilateral hip prosthesis. There are no apparent bladder stones. Progress: Serum creatinine changed from 3.8 to 2.4 in the past 24 hours. Baseline serum creatinine: 1.0 on 02/27/22. Urine output: 4165 ml reported in the past 24 hours. Metabolic acidosis, resolved. Hyponatremia, resolved. Hypokalemia. Fluid overload, improved. I/O: +3.7 L since admit. Alcohol withdrawal, resolved. Recommendations/Plan: Anticipate no acute hemodialysis need. Furosemide 80 mg IV BID discontinued. Diuretics as needed. Sodium Bicarbonate 1300 mg PO three times daily discontinued. Potassium being supplemented. Status: Acute Time Spent With Patient Time: Total time spent is greater than 50% in coordination of care (as documented) at patient's floor/unit and/or counseling patient:
--- NOTE | 2022-07-11 07:51 | Internal Med Progress Note ---
SUBJECTIVE Subjective Patient information: Note initiated : 07/11/22 at 7:47 am Service Date, if different from initiated Date: [] Patient: Ander Ortiz a 62 y/o M admitted on 07/07/22 for diverticulitis. Chief Complaint: [] Interval history: History of present illness: Mr. Ortiz is a 62 year old M Patient states past 2 or 3 days he has been feeling weak and tired and then he developed sharp lower quadrant abdominal pain which he says radiates up through the chest into the neck and bilateral shoulders. Patient states his for the most part constant and feels exactly like when he had diverticulitis. He has not had any fevers or chills but has had headache. He has had no diarrhea. He also developed a chest pain described as pressure that he said radiated up and down his chest and into his neck and bilateral shoulders and has been per much constant but improved now given pain medications that were given. He also has had multiple episodes of nausea vomiting of the past 2 or 3 days and did have pyrosis as well. Troponin was 0.13 and repeat was the same and EKG was unremarkable for ischemic changes. Case was discussed with cardiology who had no acute concerns. He has been quite anxious. He is also complained of shortness of breath over the past few days but He feels it is related to anxiety and his pain and is intermittent. He is saturating at 93% on room air currently. CT abdomen pelvis did show a small moderate effu mihir on the right thoracic cavity. Patient denies coughing. Patient does get winded when ambulating around the house at baseline. Patient has been unable to keep any fluids down because of the nausea vomiting. Patient denies any recent medication changes. Also of note patient was hyponatremic 128. And found to have significant worsening of his renal function with a creatinine of 5.3 and baseline with normal creatinine level. BUN 34. Patient has had poor urine output at home. Case is discussed with nephrology who will follow along. CT abdomen pelvis showed borderline thickening of the proximal and distal large bowel with surrounding formation suspicious for colitis. IV fluids started in the ED. 07/08 Poor urine output. Further recs per nephrology. Will obtain renal ultrasound. Patient does complain of continued shortness of breath and started requiring 1 to 2 L of oxygen overnight. Patient CPAP machine also malfunctioned and had a poor night sleep. Obtain chest x-ray and likely chest ultrasound to evaluate shortness of breath suspect effusion is a component possible volume overload from the generous IV fluid and poor urine output. elevated bnp, check echo. Leukocytosis but no bandemia. Loose brown stool. Hyponatremia 129. Bicarb 16. Creatinine 4.3 from a [id number] 5.3 yesterday. Elevated uric acid. Patient also complains of Anxiety. Patient certain become agitated and impulsive. Updated information from family is that he is a heavy drinker and has similar symptoms when he starts to go through withdrawal. We will start CIWA protocol and as needed benzodiazepines. 07/09 Patient went to severe alcohol withdrawal and DTs yesterday evening. Patient given high-dose Ativan through the night. Started low-dose Precedex this morning. Renal function improving. Patient did have some increased urine output after the Lasix yesterday. Leukocytosis resolved. Hyponatremia. Metabolic acidosis. Nephrology following. 07/10 Patient on vasopressors last night because of hypotension. Precedex. BiPAP. Now off BiPAP. On oxy mask and awake.. Chest x-ray status post right thoracentesis showed some atelectasis and minimal underlying CHF which appear to be stable. No pneumonia noted. Weaning vasopressors and Precedex down currently. Creatinine down to 3.8. Hyponatremia. Metabolic acidosis with bicarb of 15. 07/11 Patient much better over the last 24 hours. Patient is sitting up in chair. On nasal cannula at [address] imaging yesterday showed bilateral dense consolidation in the bases likely aspiration. Patient has mild cough. Shortness of breath is minimal at rest. Occasionally has headaches. Patient off vasopressors and Precedex.Hypokalemia noted. Will replete. Creatinine down to 2.4. Excellent urine output yesterday. Review of Systems: denies fever/chills/nausea/vomiting/chest or abdominal pain/diarrhea. Otherwise see above. PHYSICAL EXAM General: Awake, no acute Distress, obese Eyes/N/T: EOMI, no scleral icterus, Head/Neck: neck supple, full ROM, CV: RRR, No murmurs, Pulm: diminished b/l, mild b/l wheezing Abd: soft, nontender, +BS x4 Ext: no clubbing/cyanosis, 2+ b/l LE edema R>L, nontender Neuro: Alert mentation much improved, no focal deficits, moves all extremities, sensations intact Psychiatric: Skin: warm/dry, normal color Constitutional Vitals: Vital Signs Temp Pulse Resp BP Pulse Ox O2 Del Method O2 Flow Rate 98.4 F 86 18 102/74 94 Oxymask 10 07/11/22 04:00 07/11/22 07:03 07/11/22 07:03 07/11/22 07:00 07/11/22 07:03 07/11/22 07:03 07/11/22 07:03 Period Temp Pulse Resp BP Sys/Guevara Pulse Ox O2 Del Method O2 Flow Rate Last 24 Hr 98.4 F-99.6 F 71-100 10-37 80-116/56-74 83-97 BiPAP-Oxymask 10-15 Intake and Output 07/10/22 07/11/22 07/11/22 19:59 03:59 11:59 Intake Total 503 450 390 Output Total 1380 2340 900 Balance -877 -1890 -510 Weight 137.302 kg Intake & Output: Intake & Output 07/10/22 07/11/22 07/11/22 19:59 03:59 11:59 Intake Total 503 450 390 Output Total 1380 2340 900 Balance -877 -1890 -510 Weight 137.302 kg Intake: IV 263 450 150 Sodium Chloride 0.9% 250 ml @ 250 20 mls/hr IV .[id number] RAZ Rx#: [id number] Levophed 8 mg In Sodium 55 Chloride 0.9% 242 ml @ 10 MCG/ MIN 18.75 mls/hr IV Q14H RAZ Rx #:[id number] Zosyn 3.375 gm In Dextrose 5% 50 50 50 in Water 50 ml @ 100 mls/hr IV Q6H RAZ Rx#:[id number] Vasostrict 20 Unit In Dextrose 58 5% in Water 99 ml @ 0.01 UNIT/ MIN 3 mls/hr IV Q17H RAZ Rx#: [id number] Oral 240 240 Output: Urine Catheter Amount 1380 2340 900 Other: Urine Appearance Clear Clear Clear Urine Color Pale Pale Yellow Stool Size Moderate Stool Color Brown Green Stool Consistency Liquid Watery Loose # Bowel Movements 1 # of times incontinent of 1 Bowels OBJ DATA Labs 07/10/22 08:32 07/11/22 05:45 Labs: Abnormal Lab Results 07/11/22 07/10/22 07/10/22 05:45 08:32 05:32 RBC 3.57 L Hgb 12.2 L Hct 34.7 L MCV MCH 34.2 H Plt Count Immature Gran % (Auto) Neut % (Auto) Lymph % (Auto) Lymph # (Auto) [place] # (Auto) Seg Neutrophils % Lymphocytes % 12 L Immature Gran # RBC Morphology Macrocytosis D-Dimer Sodium Potassium 2.9 L* Chloride Carbon Dioxide Anion Gap 17.0 H BUN 65 H Creatinine 2.4 H Glucose 106 H Uric Acid 13.3 H Calcium 7.6 L Direct Bilirubin 0.3 H AST Lactate Dehydrogenase 226 H Procalcitonin 0.67 H Pleural LDH 07/10/22 07/09/22 07/09/22 05:32 08:31 05:37 RBC Hgb Hct MCV MCH Plt Count Immature Gran % (Auto) Neut % (Auto) Lymph % (Auto) Lymph # (Auto) [place] # (Auto) Seg Neutrophils % Lymphocytes % Immature Gran # RBC Morphology Macrocytosis D-Dimer 1.45 H Sodium 130 L 128 L Potassium Chloride 94 L 93 L Carbon Dioxide 15 L 16 L Anion Gap 21.0 H 19.0 H BUN 73 H 59 H Creatinine 3.8 H 4.4 H Glucose 160 H 132 H Uric Acid 12.3 H 11.0 H Calcium 7.4 L 7.1 L Direct Bilirubin 0.3 H 0.4 H AST 45 H Lactate Dehydrogenase 255 H 286 H Procalcitonin Pleural LDH 07/09/22 07/08/22 07/08/22 05:37 17:00 05:30 RBC 3.30 L Hgb 11.3 L Hct 33.6 L MCV 101.8 H MCH 34.2 H Plt Count 118 L Immature Gran % (Auto) 0.8 H Neut % (Auto) 80.3 H Lymph % (Auto) 7.6 L Lymph # (Auto) 0.72 L Meeker # (Auto) 1.08 H Seg Neutrophils % 89 H Lymphocytes % 5 L Immature Gran # 0.08 H RBC Morphology Abnormal A Macrocytosis 1+ A D-Dimer Sodium Potassium Chloride Carbon Dioxide Anion Gap BUN Creatinine Glucose Uric Acid Calcium Direct Bilirubin AST Lactate Dehydrogenase Procalcitonin Pleural LDH 186 H Meds: Medications Acetaminophen (Acetaminophen 325 Mg Tablet) 650 mg PO Q6HP PRN; Protocol PRN Reason: Per Pain Protocol/Fever > 101 Last Admin: 07/08/22 20:20 Dose: 650 mg Hydrocodone Bitart/Acetaminophen (Hydrocodone/Apap 5/325mg Tablet) 1 tab PO Q4HP PRN PRN Reason: PAIN LEVEL 3-6 Last Admin: 07/08/22 03:45 Dose: 1 tab Albuterol/Ipratropium (Ipratropium/Albuterol 3 Ml Ampul.Neb) 3 ml NEB Q4HP PRN PRN Reason: Shortness Of Breath Chlordiazepoxide HCl (Chlordiazepoxide 25 Mg Capsule) 50 mg PO UD PRN; Protocol PRN Reason: Alcohol Withdrawal/Assess CIWA Last Admin: 07/10/22 19:59 Dose: 25 mg Folic Acid (Folic Acid 1 Mg Tablet) 1 mg PO DAILY [facility] Last Admin: 07/10/22 10:04 Dose: 1 mg Haloperidol Lactate (Haloperidol Lactate 5 Mg/Ml Vial) 0.5 mg IM Q2HP PRN PRN Reason: Alcohol Withdrawal/Assess CIWA Last Admin: 07/09/22 22:24 Dose: 0.5 mg Heparin Sodium (Porcine) (Heparin 5,000 Unit/Ml Vial) 5,000 unit SQ Q12 RAZ Last Admin: 07/10/22 19:58 Dose: 5,000 unit Potassium Chloride 40 meq/ (Dextrose) 520 mls @ 130 mls/hr IV UD PRN PRN Reason: Potassium < 3 Magnesium Sulfate (Magnesium Sulfate) 2 gm in 50 mls @ 50 mls/hr IV UD PRN PRN Reason: Magnesium </= 1.6 Last Infusion: 07/08/22 11:32 Dose: Infused Metronidazole (Flagyl) 500 mg in 100 mls @ 100 mls/hr IV Q8H [facility]; Protocol Last Infusion: 07/11/22 06:50 Dose: Infused Thiamine HCl 100 mg/ Sodium (Chloride) 51 mls @ 50 mls/hr IV DAILY [facility] Last Infusion: 07/10/22 11:43 Dose: Infused Dexmedetomidine HCl 400 mcg/ (Premix) 100 mls @ 6.904 mls/hr IV .[id number] [facility]; Protocol Last Admin: 07/11/22 01:05 Dose: Not Given Vasopressin 20 unit/ Dextrose 100 mls @ 3 mls/hr IV Q17H [facility]; Protocol Last Admin: 07/10/22 17:13 Dose: Not Given Sodium Chloride (Sodium Chloride 0.9%) 250 mls @ 20 mls/hr IV .[id number] RAZ Last Admin: 07/11/22 00:41 Dose: Not Given Norepinephrine Bitartrate 8 mg (/ Sodium Chloride) 250 mls @ 18.75 mls/hr IV Q14H RAZ; Protocol Last Admin: 07/11/22 05:45 Dose: Not Given Sodium Chloride (Sodium Chloride 0.9%) 250 mls @ 20 mls/hr IV .[id number] RAZ Last Admin: 07/11/22 03:23 Dose: Not Given Piperacillin Sod/Tazobactam (Sod 3.375 gm/ Dextrose) 50 mls @ 100 mls/hr IV Q6H [facility]; Protocol Last Infusion: 07/11/22 06:40 Dose: Infused Iron Carb/Multivit/Hyde/Folic Acid (Multivit,Ther Iron,Ca,Fa & Min 1 Tablet) 1 tab PO DAILY RAZ Last Admin: 07/10/22 10:04 Dose: 1 tab Lorazepam (Lorazepam 2 Mg/Ml Vial) 0.5 mg IV Q4-6HP PRN PRN Reason: ANXIETY/SEDATION Last Admin: 07/08/22 19:16 Dose: 0.5 mg Lorazepam (Lorazepam 2 Mg/Ml Vial) 0 mg IV UD PRN; Protocol PRN Reason: Alcohol Withdrawal/Assess CIWA Last Admin: 07/09/22 06:46 Dose: 4 mg Morphine Sulfate (Morphine 4 Mg/Ml Vial) 0 mg IV Q3HP PRN PRN Reason: Pain Last Admin: 07/10/22 04:40 Dose: 1 mg Ondansetron HCl (Ondansetron 4 Mg/2 Ml Vial) 4 mg IV Q4HP PRN PRN Reason: Nausea And Vomiting Pantoprazole Sodium (Pantoprazole 40 Mg Vial) 40 mg IV BIDAC [facility] Last Admin: 07/11/22 07:26 Dose: 40 mg Polyethylene Glycol (Polyethylene Glycol 3350 17 Gm Packet) 17 gm PO DAILYP PRN PRN Reason: Constipation Potassium Chloride (Potassium Chloride 20 Meq Tablet) 40 meq PO UD PRN PRN Reason: Potssium is 3-3.5 Potassium Chloride (Potassium Chloride 20 Meq Tablet) 40 meq PO UD PRN PRN Reason: Potassium < 3 Last Admin: 07/11/22 07:26 Dose: 40 meq Senna (Sennosides 1 Tablet) 2 tab PO DAILYP PRN PRN Reason: Constipation Sertraline HCl (Sertraline 50 Mg Tablet) 50 mg PO [facility] Last Admin: 07/10/22 19:59 Dose: 50 mg Sodium Chloride (0.9 % Sodium Chloride 10 Ml Syringe) 10 ml IV Q8 [facility] Last Admin: 07/11/22 05:39 Dose: 10 ml Trazodone HCl (Trazodone Hcl 100 Mg Tablet) 100 mg PO [facility] Last Admin: 07/10/22 19:58 Dose: 100 mg A/P Narrative A/P Narrative: A: *Alcohol use d/o & withdrawal with DT's: improved -improving, off precedex *Shock: on vasopressors likely 2/2 sedation meds required to control w/d symptoms when BP already soft on admit -off vasopressors *Encephalopathy: 2/2 above, improved *TATIANA likely ATN: suspect 2/2 N/V/poor oral intake in setting of ARB use and low BP -renal u/s no acute -poor uop with some mild improvement -cr 5.3>4.3>4.4>3.8>2.4 *Metabolic acidosis: improving *HYponatremia/hypocal/hypokalemia: *Colitis(h/o diverticulitis with bowel surgeries): -leukocytosis improved *UTI(Strep agalac), complicated: *Acute hypoxic respiratory failure: multifactorial> b/l PNA + right effusion + volume overload + rotund abdomen impeding thoracic cavity expansion +atelectasis *PNA, b/l likely Aspiration: -on Oxymask 10L *Right Effusion: -Thora (07/08) of 700cc, exudative by LDH ratio but not by protein ratio, transudative appearance per radiologist *Atelectasis: *HTN: on ARB/norvasc at home *Pyrosis/GERD:: likely gastro/esophagitis from n/v *Macrocytosis: likey chronic etoh, check b12/folate *Morbid obesity: BMI 44 *MIGDALIA: on CPAP *Depression/Anxiety: P: -CIWA, prn benzo, vitamins/minterals -IVF's/diuretics per nephrology -Nephrology following -Monitor UOP, i/o, renal fxn -Follow-up and replace electrolytes -rocephin/flagyl -IS -ppi for likely gastritis/esophagitis from n/v -Hold Norvasc/losartan for low BP and TATIANA -home cpap -PT/OT -ppx: Heparin / ppi Time Spent With Patient Time: Total time spent is greater than 50% in coordination of care (as documented) at patient's floor/unit and/or counseling patient: Subsequent: Total time with patient: 50 - 65 Minutes QUALITY VTE Deep Vein Thrombosis/Pulmonary Embolism Present on Admission: No Restraints Restraint In Place: No
[2022-07-11] MEDS: POTASSIUM CHLORIDE 40 MEQ in DEXTROSE 5% IN WATER 500 ML IV PRN (08:15)
[2022-07-11] MEDS: FOLIC ACID 1 MG TABLET PO SCH (08:25)
[2022-07-11] MEDS: HYDROcodone/APAP 5/325MG TABLET PO PRN ×3 (08:26→20:25)
[2022-07-11] MEDS: HEPARIN 5,000 UNIT/ML VIAL SQ SCH ×2 (08:26→20:24)
[2022-07-11] MEDS: MULTIVIT,THER IRON,CA,FA & MIN 1 TABLET PO SCH (08:26)
[2022-07-11] MEDS: THIAMINE 100 MG in 0.9 % SODIUM CHLORIDE 50 ML IV SCH (08:26)
[2022-07-11] MEDS ORDERED: IPRATROPIUM/ALBUTEROL 3 ML AMPUL.NEB NEB SCH (09:30)
[2022-07-11] MEDS: VASOPRESSIN 20 UNIT in DEXTROSE 5% IN WATER 99 ML IV SCH (09:38)
[2022-07-11] MEDS ORDERED: NOREPINEPHRINE BITARTRATE 8 MG in 0.9 % SODIUM CHLORIDE 242 ML IV PRN (10:15)
[2022-07-11] MEDS ORDERED: DEXMEDETOMIDINE 400 MCG in PREMIX 1 BAG IV PRN (10:15)
[2022-07-11] MEDS ORDERED: VASOPRESSIN 20 UNIT in DEXTROSE 5% IN WATER 99 ML IV PRN (10:15)
[2022-07-11] MEDS: traZODone HCL 100 MG TABLET PO SCH (20:24)
[2022-07-11] MEDS: SERTRALINE 50 MG TABLET PO SCH (20:24)
--- NOTE | 2022-07-11 21:13 | Internal Med Progress Note ---
SUBJECTIVE Subjective Patient information: Note initiated : 07/11/22 at 9:12 pm Service Date, if different from initiated Date: [] Patient: Ander Ortiz a 62 y/o M admitted on 07/07/22 for diverticulitis. Chief Complaint: [] Additional PMFSH (Level 3 Only): Mr. Ortiz is a 62 male with remote history of ruptured diverticulitis status post colostomy and reversal, heavy alcohol use, morbid obesity presented with nausea, vomiting, lower abdominal pain radiating into his chest neck and bilateral shoulder. He has not had a bowel movement or urine output. Patient felt exactly like when he had diverticulitis. Patient also reported shortness of breath over the past few days but he felt it was likely related to anxiety and pain. He was satting 93% on room air. CT scan abdomen and pelvis on 07/07 showed thickening of proximal and distal large bowel with surrounding inflammation concerning for colitis. No evidence of diverticulitis. CT did show bilateral pleural effusion right greater than left. Creatinine was 5.3 On presentation patient had minimally elevated troponin of 0.13 which trended flat. EKG was unremarkable for ischemic changes. Case was discussed with cardiology who had no acute concerns. Patient was in acute kidney injury from baseline of normal creatinine. Hyponatremia of 129. Nephrology saw patient in consultation. Renal ultrasound showed 6 mm nonobstructing stone and mild calyx left kidney. Otherwise normal kidneys bladder and prostate. Patient has obstructive sleep apnea and has been using his CPAP. On 07/08 patient became agitated and impulsive, family reported patient is a heavy drinker and his symptoms are consistent with alcohol withdrawal. He was started on CIWA protocol. He went into severe alcohol withdrawal with DTs despite receiving Ativan through the night. He was started on Precedex gtt. Patient blood pressure dropped and he was on vasopressors. Patient was started on IV fluids also received Lasix per nephrology. Patient received bicarb and his metabolic acidosis improved. Patient underwent successful thoracentesis on 07/08 yielding 700 cc of pleural fluid. CT chest on 07/10 showed large consolidated right lower lobe and moderate consolidated left lower lobe infiltrates and moderate bilateral pleural effusions. Doppler ultrasound bilateral lower extremity showed no evidence of DVT. 07/12. Patient is feeling much better. He was sitting up in the chair. He still has a Decker catheter in with good urine output. Serum creatinine improved to 1.3 close to his baseline. He has low potassium which will be corrected. His breathing is improving. He has been weaned down to 3 L nasal cannula oxygen from 5 L before. He reports he does not use oxygen at home. Nephrology saw patient and discontinued bicarb. Review of Systems: denies fever/chills/nausea/vomiting/chest or abdominal pain/diarrhea. Denies visual changes, headache Denies any rashes No arthralgia or myalgias PHYSICAL EXAM General: Awake, no acute Distress, obese Eyes/N/T: EOMI, no scleral icterus, Head/Neck: neck supple, full ROM, CV: RRR, No murmurs, Pulm: diminished b/l, mild b/l wheezing Abd: soft, nontender, +BS x4 Ext: no clubbing/cyanosis, 1+ b/l LE edema R>L, nontender Neuro: Alert, oriented. Encephalopathy is improving. No focal deficits Psychiatric: Appropriate mood and affect Skin: warm/dry, normal color Assessment and plan Alcohol use disorder, counseled on alcohol cessation, on multivitamin and folic acid, thiamine Severe alcohol withdrawal with delirium tremens, off Precedex and improving. *Shock: Requiring vasopressors likely 2/2 sedation meds required to control w/d symptoms. Off vasopressor and hemodynamically stable *Encephalopathy: 2/2 above, improved *Acute kidney injury with acute tubular necrosis, due to dehydration with metabolic acidosis and hyponatremia Work up: Renal US on 07/08/22: 6 mm nonobstructing stone mid calyx left kidney. Otherwise normal kidneys, bladder and prostate. Urinalysis on 07/07/22: Lu, cloudy, pH 5.0, SG 1.018, protein 100, blood 0.03, leukocyte esterase 25, urine culture pending. CT Abdomen and Pelvis without contrast on 07/07/22: There are several small nonobstructing calyceal stones in both kidneys. Largest is in the upper pole of the left kidney measures 3 mm. There is no hydronephrosis. Both ureters are decompressed and there are no stones within the ureters. Urinary bladder is decompressed and partially obscured by beam hardening artifact from bilateral hip prosthesis. There are no apparent bladder stones. Serum creatinine 1.3 Baseline serum creatinine: 1.0 on 02/27/22. Excellent urine output Nephrology recommendations appreciated Hypokalemia, will replace aggressively Hyponatremia, resolved Hypocalcemia, resolving Metabolic acidosis, improving Acute colitis. CT scan abdomen and pelvis on 07/07 showed thickening of prox imal and distal large bowel with surrounding inflammation concerning for colitis. No evidence of diverticulitis. Received rocephin/flagyl. Leukocytosis resolved. Improving *UTI(Strep agalac), complicated, received ceftriaxone *Acute hypoxic respiratory failure: multifactorial> b/l PNA + right effusion + volume overload + rotund abdomen impeding thoracic cavity expansion +atelectasis *PNA, b/l likely Aspiration: -Improving, down to 3 L nasal cannula oxygen from 5 L yesterday. *Bilateral pleural effusion right more than left: -Thora (07/08) of 700cc, no growth on pleural fluid culture *HTN: on ARB/norvasc at home, currently on hold due to TATIANA *Macrocytosis: likey chronic etoh, check b12/folate *Morbid obesity: BMI 44 *MIGDALIA: on CPAP *Depression/Anxiety: Stable Generalized weakness, PT OT Portions of this chart may have been created with [employer] voice recognition software. Occasional wrong-word or sound-like substitutions may have occurred due to the inherent limitations of voice recognition software. Please read the chart carefully and recognize, using context, where the substitutions have occurred. Constitutional Vitals: Vital Signs Temp Pulse Resp BP Pulse Ox O2 Del Method O2 Flow Rate 99.3 F H 91 H 20 104/66 93 High Flow Nasal Cannula 7 07/11/22 20:00 07/11/22 20:00 07/11/22 20:00 07/11/22 20:00 07/11/22 20:00 07/11/22 20:00 07/11/22 20:00 Period Temp Pulse Resp BP Sys/Guevara Pulse Ox O2 Del Method O2 Flow Rate Last 24 Hr 98.4 F-99.3 F 85-102 10-23 83-122/55-74 90-94 BiPAP-Oxymask 7-10 Intake and Output 07/11/22 07/11/22 07/12/22 11:59 19:59 03:59 Intake Total 1323 2060 Output Total 1690 1500 180 Balance -367 560 -180 Weight 137.302 kg 137.467 kg Patient Weight 07/12/22 03:59 Weight 137.467 kg Intake & Output: Intake & Output 07/11/22 07/11/22 07/12/22 11:59 19:59 03:59 Intake Total 1323 2060 Output Total 1690 1500 180 Balance -367 560 -180 Weight 137.302 kg 137.467 kg Intake: IV 203 620 Precedex 400 Mcg/100 ml 2 Dextrose 400 Mcg In Premix 1 Bag @ 0.2 MCG/KG/HR 6.904 mls/ hr IV .[id number] [facility] Rx#: [id number] Levophed 8 mg In Sodium 0 Chloride 0.9% 242 ml @ 10 MCG/ MIN 18.75 mls/hr IV Q14H [facility] Rx #:[id number] Zosyn 3.375 gm In Dextrose 5% 50 100 in Water 50 ml @ 100 mls/hr IV Q6H [facility] Rx#:[id number] Potassium Chloride 40 Meq In 520 Dextrose 5% in Water 500 ml @ 130 mls/hr IV UD PRN Rx#: [id number] Vitamin B1 100 mg In Sodium 51 Chloride 0.9% 50 ml @ 50 mls/hr IV DAILY [facility] Rx#:[id number] Vasostrict 20 Unit In Dextrose 0 5% in Water 99 ml @ 0.01 UNIT/ MIN 3 mls/hr IV Q17H [facility] Rx#: [id number] Oral 1120 1440 Output: Urine Catheter Amount 1690 1300 180 Stool 200 Other: Meal Breakfast Dinner Percent of Meal Consumed 100% 100% Feeding Ability Independent Independent Urine Appearance Clear Clear Urine Color Yellow Yellow Urine Odor Normal Stool Size Moderate Stool Color Brown Brown Green Stool Consistency Liquid Liquid Watery Loose OBJ DATA Labs 07/10/22 08:32 07/11/22 05:45 Labs: Abnormal Lab Results 07/11/22 07/10/22 07/10/22 05:45 08:32 05:32 RBC 3.57 L Hgb 12.2 L Hct 34.7 L MCV MCH 34.2 H Plt Count Immature Gran % (Auto) Neut % (Auto) Lymph % (Auto) Lymph # (Auto) Burnett # (Auto) Lymphocytes % 12 L Immature Gran # D-Dimer Sodium Potassium 2.9 L* Chloride Carbon Dioxide Anion Gap 17.0 H BUN 65 H Creatinine 2.4 H Glucose 106 H Uric Acid 13.3 H Calcium 7.6 L Direct Bilirubin 0.3 H AST Lactate Dehydrogenase 226 H Procalcitonin 0.67 H 07/10/22 07/09/22 07/09/22 05:32 08:31 05:37 RBC Hgb Hct MCV MCH Plt Count Immature Gran % (Auto) Neut % (Auto) Lymph % (Auto) Lymph # (Auto) Burnett # (Auto) Lymphocytes % Immature Gran # D-Dimer 1.45 H Sodium 130 L 128 L Potassium Chloride 94 L 93 L Carbon Dioxide 15 L 16 L Anion Gap 21.0 H 19.0 H BUN 73 H 59 H Creatinine 3.8 H 4.4 H Glucose 160 H 132 H Uric Acid 12.3 H 11.0 H Calcium 7.4 L 7.1 L Direct Bilirubin 0.3 H 0.4 H AST 45 H Lactate Dehydrogenase 255 H 286 H Procalcitonin 07/09/22 05:37 RBC 3.30 L Hgb 11.3 L Hct 33.6 L MCV 101.8 H MCH 34.2 H Plt Count 118 L Immature Gran % (Auto) 0.8 H Neut % (Auto) 80.3 H Lymph % (Auto) 7.6 L Lymph # (Auto) 0.72 L Burnett # (Auto) 1.08 H Lymphocytes % Immature Gran # 0.08 H D-Dimer Sodium Potassium Chloride Carbon Dioxide Anion Gap BUN Creatinine Glucose Uric Acid Calcium Direct Bilirubin AST Lactate Dehydrogenase Procalcitonin Meds: Medications Acetaminophen (Acetaminophen 325 Mg Tablet) 650 mg PO Q6HP PRN; Protocol PRN Reason: Per Pain Protocol/Fever > 101 Last Admin: 07/08/22 20:20 Dose: 650 mg Hydrocodone Bitart/Acetaminophen (Hydrocodone/Apap 5/325mg Tablet) 1 tab PO Q4HP PRN PRN Reason: PAIN LEVEL 3-6 Last Admin: 07/11/22 20:25 Dose: 1 tab Albuterol/Ipratropium (Ipratropium/Albuterol 3 Ml Ampul.Neb) 3 ml NEB Q4HP PRN PRN Reason: Shortness Of Breath Chlordiazepoxide HCl (Chlordiazepoxide 25 Mg Capsule) 50 mg PO UD PRN; Protocol PRN Reason: Alcohol Withdrawal/Assess CIWA Last Admin: 07/10/22 19:59 Dose: 25 mg Folic Acid (Folic Acid 1 Mg Tablet) 1 mg PO DAILY [facility] Last Admin: 07/11/22 08:25 Dose: 1 mg Haloperidol Lactate (Haloperidol Lactate 5 Mg/Ml Vial) 0.5 mg IM Q2HP PRN PRN Reason: Alcohol Withdrawal/Assess CIWA Last Admin: 07/09/22 22:24 Dose: 0.5 mg Heparin Sodium (Porcine) (Heparin 5,000 Unit/Ml Vial) 5,000 unit SQ Q12 [facility] Last Admin: 07/11/22 20:24 Dose: 5,000 unit Potassium Chloride 40 meq/ (Dextrose) 520 mls @ 130 mls/hr IV UD PRN PRN Reason: Potassium < 3 Last Infusion: 07/11/22 12:31 Dose: Infused Magnesium Sulfate (Magnesium Sulfate) 2 gm in 50 mls @ 50 mls/hr IV UD PRN PRN Reason: Magnesium </= 1.6 Last Infusion: 07/08/22 11:32 Dose: Infused Thiamine HCl 100 mg/ Sodium (Chloride) 51 mls @ 50 mls/hr IV DAILY [facility] Last Infusion: 07/11/22 09:39 Dose: Infused Sodium Chloride (Sodium Chloride 0.9%) 250 mls @ 20 mls/hr IV .[id number] [facility] Last Admin: 07/11/22 16:19 Dose: Not Given Piperacillin Sod/Tazobactam (Sod 3.375 gm/ Dextrose) 50 mls @ 100 mls/hr IV Q6H [facility]; Protocol Last Infusion: 07/11/22 18:57 Dose: Infused Dexmedetomidine HCl 400 mcg/ (Premix) 100 mls @ 6.904 mls/hr IV .[id number] PRN; Protocol PRN Reason: Sedation Norepinephrine Bitartrate 8 mg (/ Sodium Chloride) 250 mls @ 18.75 mls/hr IV Q12HP PRN; Protocol PRN Reason: Hypotension Vasopressin 20 unit/ Dextrose 100 mls @ 3 mls/hr IV Q24HP PRN; Protocol PRN Reason: Hypotension 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 (Multivit,Ther Iron,Ca,Fa & Min 1 Tablet) 1 tab PO DAILY [facility] Last Admin: 07/11/22 08:26 Dose: 1 tab Lorazepam (Lorazepam 2 Mg/Ml Vial) 0.5 mg IV Q4-6HP PRN PRN Reason: ANXIETY/SEDATION Last Admin: 07/08/22 19:16 Dose: 0.5 mg Lorazepam (Lorazepam 2 Mg/Ml Vial) 0 mg IV UD PRN; Protocol PRN Reason: Alcohol Withdrawal/Assess CIWA Last Admin: 07/09/22 06:46 Dose: 4 mg Morphine Sulfate (Morphine 4 Mg/Ml Vial) 0 mg IV Q3HP PRN PRN Reason: Pain Last Admin: 07/10/22 04:40 Dose: 1 mg Ondansetron HCl (Ondansetron 4 Mg/2 Ml Vial) 4 mg IV Q4HP PRN PRN Reason: Nausea And Vomiting Pantoprazole Sodium (Pantoprazole 40 Mg Vial) 40 mg IV BIDAC [facility] Last Admin: 07/11/22 16:49 Dose: 40 mg Polyethylene Glycol (Polyethylene Glycol 3350 17 Gm Packet) 17 gm PO DAILYP PRN PRN Reason: Constipation Potassium Chloride (Potassium Chloride 20 Meq Tablet) 40 meq PO UD PRN PRN Reason: Potssium is 3-3.5 Potassium Chloride (Potassium Chloride 20 Meq Tablet) 40 meq PO UD PRN PRN Reason: Potassium < 3 Last Admin: 07/11/22 07:26 Dose: 40 meq Senna (Sennosides 1 Tablet) 2 tab PO DAILYP PRN PRN Reason: Constipation Sertraline HCl (Sertraline 50 Mg Tablet) 50 mg PO HS [facility] Last Admin: 07/11/22 20:24 Dose: 50 mg Sodium Chloride (0.9 % Sodium Chloride 10 Ml Syringe) 10 ml IV Q8 [facility] Last Admin: 07/11/22 20:25 Dose: 10 ml Trazodone HCl (Trazodone Hcl 100 Mg Tablet) 100 mg PO HS [facility] Last Admin: 07/11/22 20:24 Dose: 100 mg A/P Time Spent With Patient Time: Total time spent is greater than 50% in coordination of care (as documented) at patient's floor/unit and/or counseling patient: Initial: Total time with patient: 55 - 74 minutes QUALITY VTE Deep Vein Thrombosis/Pulmonary Embolism Present on Admission: No Restraints Restraint In Place: No
[2022-07-12] MEDS: ACETAMINOPHEN 325 MG TABLET PO PRN ×2 (04:03→14:30)
[2022-07-12] MEDS: 0.9 % SODIUM CHLORIDE 250 ML IV SCH ×2 (05:04→16:59)
[2022-07-12] MEDS: PIPERACILLIN SODIUM/TAZOBACTAM 3.375 GM in DEXTROSE 5% IN WATER 50 ML IV SCH ×4 (05:37→23:39)
[2022-07-12] MEDS: 0.9 % SODIUM CHLORIDE 10 ML SYRINGE IV SCH ×4 (05:37→23:39)
[2022-07-12] MEDS: HYDROcodone/APAP 5/325MG TABLET PO PRN ×2 (06:13→20:00)
[2022-07-12] MEDS: PANTOPRAZOLE 40 MG VIAL IV SCH (07:23)
[2022-07-12 08:06] LABS: Blood Urea Nitrogen 32 mg/dL (8-23); Calcium 8.1 mg/dL (8.6-10.4); Carbon Dioxide 26 mmol/L (22-30); Chloride 101 mmol/L (96-108); Glomerular Filtration Rate 58; Glucose 159 mg/dL (70-105)
--- NOTE | 2022-07-12 08:18 | Nephrology Progress Note ---
SUBJECTIVE Subjective Patient information: Note initiated : 07/12/22 at 8:15 am Patient: Ander Ortiz 62 y/o M admitted on 07/07/22 for diverticulitis. Chief Complaint: Weakness Pertinent ROS: Weakness Dyspnea improved Constitutional Vitals: Vital Signs Temp Pulse Resp BP Pulse Ox O2 Del Method O2 Flow Rate 99.1 F H 81 13 108/83 96 High Flow Nasal Cannula 5 07/12/22 04:00 07/12/22 06:00 07/12/22 06:00 07/12/22 06:00 07/12/22 06:00 07/12/22 06:00 07/12/22 06:00 Period Temp Pulse Resp BP Sys/Guevara Pulse Ox O2 Del Method O2 Flow Rate Last 24 Hr 97.7 F-99.3 F 80-102 10-23 83-122/55-83 90-97 BiPAP-Nasal Cannula 5-7 Intake and Output 07/11/22 07/12/22 07/12/22 19:59 03:59 11:59 Intake Total 2060 290 290 Output Total 1500 1600 580 Balance 560 -1310 -290 Weight 302 lb 11.2 oz 303 lb 1 oz Intake & Output: Intake & Output 07/11/22 07/12/22 07/12/22 19:59 03:59 11:59 Intake Total 2060 290 290 Output Total 1500 1600 580 Balance 560 -1310 -290 Weight 302 lb 11.2 oz 303 lb 1 oz Intake: IV 620 50 50 Zosyn 3.375 gm In Dextrose 5% 100 50 50 in Water 50 ml @ 100 mls/hr IV Q6H [facility] Rx#:[id number] Potassium Chloride 40 Meq In 520 Dextrose 5% in Water 500 ml @ 130 mls/hr IV UD PRN Rx#: [id number] Oral 1440 240 240 Output: Urine Catheter Amount 1300 1600 580 Stool 200 Other: Meal Dinner Percent of Meal Consumed 100% Feeding Ability Independent Urine Appearance Clear Uretheral (Decker) Clear Urine Color Yellow Uretheral (Decker) Yellow Urine Odor Normal Stool Size Moderate Moderate Stool Color Brown Brown Brown Stool Consistency Liquid Liquid Liquid # Bowel Movements 1 1 General appearance: no acute distress and obese Head Head exam: Present normal inspection Eye Eye exam: Present normal appearance ENT ENT exam: Present mucous membranes moist Respiratory Respiratory exam: Absent respiratory distress Cardiovascular Cardiovascular exam: Present normal rate and rhythm GI/Abdominal GI/Abdominal exam: Present soft and distended Extremities Exam Extremities exam: Absent joint swelling or pedal edema Neurological Exam Neurological exam: Present alert and oriented X3 Psychiatric Psychiatric exam: Present normal affect and normal mood Skin Skin exam: Present warm; Absent rash A/P Assessment and plan (1) Acute kidney injury with acute tubular necrosis: Assessment and plan: Ander Ortiz is a 62-year-old male with hypertension and remote history of ruptured diverticulitis s/p colostomy and reversal presented to ED for nausea, vomiting and abdominal pain for 3 days. He has not had a bowel movement or urine output. In ED, CT showed colitis. Creatinine was 5.3. He was given 1 L NS. He did not make any urine in ED. Nephrology consultation was requested for acute kidney injury. Acute kidney injury, suspected acute tubular necrosis due to dehydration with metabolic acidosis and hyponatremia, present on arrival, resolving. Work up: Renal US on 07/08/22: 6 mm nonobstructing stone mid calyx left kidney. Otherwise normal kidneys, bladder and prostate. Urinalysis on 07/07/22: Lu, cloudy, pH 5.0, SG 1.018, protein 100, blood 0.03, leukocyte esterase 25, urine culture pending. CT Abdomen and Pelvis without contrast on 07/07/22: There are several small nonobstructing calyceal stones in both kidneys. Largest is in the upper pole of the left kidney measures 3 mm. There is no hydronephrosis. Both ureters are decompressed and there are no stones within the ureters. Urinary bladder is decompressed and partially obscured by beam hardening artifact from bilateral hip prosthesis. There are no apparent bladder stones. Progress: Serum creatinine changed from 2.4 to 1.3 in the past 24 hours. Baseline serum creatinine: 1.0 on 02/27/22. Urine output: 4590 ml reported in the past 24 hours. Hypokalemia. Fluid overload, improved. I/O: +2.8 L since admit. Alcohol withdrawal, resolved. Recommendations/Plan: Anticipate no acute hemodialysis need. Potassium being supplemented. Status: Acute Time Spent With Patient Time: Total time spent is greater than 50% in coordination of care (as documented) at patient's floor/unit and/or counseling patient:
[2022-07-12] MEDS: THIAMINE 100 MG in 0.9 % SODIUM CHLORIDE 50 ML IV SCH (08:28)
[2022-07-12] MEDS: MULTIVIT,THER IRON,CA,FA & MIN 1 TABLET PO SCH (08:28)
[2022-07-12] MEDS: POTASSIUM CHLORIDE 40 MEQ in DEXTROSE 5% IN WATER 500 ML IV PRN (08:28)
[2022-07-12] MEDS: HEPARIN 5,000 UNIT/ML VIAL SQ SCH ×2 (08:28→20:00)
[2022-07-12] MEDS: FOLIC ACID 1 MG TABLET PO SCH (08:28)
[2022-07-12] MEDS: POTASSIUM CHLORIDE 20 MEQ TABLET PO PRN (08:29)
[2022-07-12] MEDS: PANTOPRAZOLE 40 MG TABLET PO SCH (17:05)
[2022-07-12] MEDS: SERTRALINE 50 MG TABLET PO SCH (20:01)
[2022-07-12] MEDS: traZODone HCL 100 MG TABLET PO SCH (20:01)
[2022-07-13] MEDS: 0.9 % SODIUM CHLORIDE 250 ML IV SCH (05:26)
[2022-07-13] MEDS: PIPERACILLIN SODIUM/TAZOBACTAM 3.375 GM in DEXTROSE 5% IN WATER 50 ML IV SCH (05:26)
[2022-07-13] MEDS: 0.9 % SODIUM CHLORIDE 10 ML SYRINGE IV SCH ×3 (05:26→20:14)
[2022-07-13] MEDS: HYDROcodone/APAP 5/325MG TABLET PO PRN ×3 (07:56→20:14)
[2022-07-13] MEDS: PANTOPRAZOLE 40 MG TABLET PO SCH ×2 (07:56→15:52)
[2022-07-13] MEDS: THIAMINE 100 MG TABLET PO SCH (08:19)
[2022-07-13] MEDS: HEPARIN 5,000 UNIT/ML VIAL SQ SCH ×2 (08:19→20:13)
[2022-07-13] MEDS: FOLIC ACID 1 MG TABLET PO SCH (08:19)
[2022-07-13] MEDS: MULTIVIT,THER IRON,CA,FA & MIN 1 TABLET PO SCH (08:19)
[2022-07-13 10:13] LABS: Basophils # (Auto) 0.03 K/mcL (0.00-0.30); Basophils % (Auto) 0.5 % (0.0-2.0); Eosinophils # (Auto) 0.42 K/mcL (0.00-0.70); Eosinophils % (Auto) 6.6 % (0.0-7.0); Hematocrit 38.6 % (40.1-51.0); Hemoglobin 13.8 g/dL (13.7-17.5); Lymphocytes # (Auto) 0.97 K/mcL (1.50-4.80); Lymphocytes % (Auto) 15.3 % (15.5-49.0); Mean Cell Volume 96.5 fL (80.0-100.0); Mean Corpuscular HGB Conc 35.8 g/dL (31.0-36.0); Mean Platelet Volume 10.6 fL (8.8-12.5); Monocytes # (Auto) 0.98 K/mcL (0.10-0.90); Monocytes % (Auto) 15.5 % (1.0-12.0); Neutrophils % (Auto) 61.3 % (38.0-78.0); Platelet Count 228 K/mcL (140-440); Red Cell Distribution Width 12.3 % (11.5-14.5); WBC 6.3 K/mcL (4.5-11.0)
[2022-07-13 10:35] LABS: ALT/SGPT 20 U/L (<40); AST/SGOT 21 U/L (<40); Albumin 3.5 gm/dL (3.2-5.2); Albumin/Globulin Ratio 1.3 (1.0-2.3); Alkaline Phosphatase 92 U/L (39-117); Bilirubin,Total 0.6 mg/dL (0.1-1.0); Blood Urea Nitrogen 16 mg/dL (8-23); Calcium 8.6 mg/dL (8.6-10.4); Carbon Dioxide 26 mmol/L (22-30); Chloride 101 mmol/L (96-108); Globulin 2.8 gm/dL (2.2-3.7); Glomerular Filtration Rate 91; Glucose 118 mg/dL (70-105)
[2022-07-13] MEDS: POTASSIUM CHLORIDE 20 MEQ TABLET PO SCH ×4 (11:01→17:28)
--- NOTE | 2022-07-13 11:03 | Internal Med Progress Note ---
SUBJECTIVE Subjective Patient information: Note initiated : 07/13/22 at 10:29 am Service Date, if different from initiated Date: [] Patient: Ander Ortiz a 62 y/o M admitted on 07/07/22 for diverticulitis. Chief Complaint: [] Additional PMFSH (Level 3 Only): Mr. Ortiz is a 62 male with remote history of ruptured diverticulitis status post colostomy and reversal, heavy alcohol use, morbid obesity presented with nausea, vomiting, lower abdominal pain radiating into his chest neck and bilateral shoulder. He has not had a bowel movement or urine output. Patient felt exactly like when he had diverticulitis. Patient also reported shortness of breath over the past few days but he felt it was likely related to anxiety and pain. He was satting 93% on room air. CT scan abdomen and pelvis on 07/07 showed thickening of proximal and distal large bowel with surrounding inflammation concerning for colitis. No evidence of diverticulitis. CT did show bilateral pleural effusion right greater than left. Creatinine was 5.3 On presentation patient had minimally elevated troponin of 0.13 which trended flat. EKG was unremarkable for ischemic changes. Case was discussed with cardiology who had no acute concerns. Patient was in acute kidney injury from baseline of normal creatinine. Hyponatremia of 129. Nephrology saw patient in consultation. Renal ultrasound showed 6 mm nonobstructing stone and mild calyx left kidney. Otherwise normal kidneys bladder and prostate. Patient has obstructive sleep apnea and has been using his CPAP. On 07/08 patient became agitated and impulsive, family reported patient is a heavy drinker and his symptoms are consistent with alcohol withdrawal. He was started on CIWA protocol. He went into severe alcohol withdrawal with DTs despite receiving Ativan through the night. He was started on Precedex gtt. Patient blood pressure dropped and he was on vasopressors. Patient was started on IV fluids also received Lasix per nephrology. Patient received bicarb and his metabolic acidosis improved. Patient underwent successful thoracentesis on 07/08 yielding 700 cc of pleural fluid. CT chest on 07/10 showed large consolidated right lower lobe and moderate consolidated left lower lobe infiltrates and moderate bilateral pleural effusions. Doppler ultrasound bilateral lower extremity showed no evidence of DVT. 07/12. Patient is feeling much better. He was sitting up in the chair. He still has a Decker catheter in with good urine output. Serum creatinine improved to 1.3 close to his baseline. He has low potassium which will be corrected. His breathing is improving. He has been weaned down to 3 L nasal cannula oxygen from 5 L before. He reports he does not use oxygen at home. Nephrology saw patient and discontinued bicarb. 07/13. Slept well, feeling better, reported a week ago he was vomiting violently and his right side of his throat still hurts but overall improving. Serum cre atinine improved to 0.9, potassium is still very low at 2.7. This will be replaced aggressively. He has been weaned off supplemental oxygen and satting 94% on room air. Legs have still got some swelling for which he will be getting IV Lasix. Disposition is still unclear, case management will be discussing options with him. Patient had bilateral ultrasound Doppler lower extremity performed which showed no evidence of DVT. Can transfer out to [facility] today Review of Systems: denies fever/chills/nausea/vomiting/chest or abdominal pain/diarrhea. Denies visual changes, headache Denies any rashes No arthralgia or myalgias PHYSICAL EXAM General: Well-nourished male, sitting up in bedside chair, pleasant and cooperative Eyes/N/T: EOMI, no scleral icterus, Head/Neck: neck supple, full ROM, CV: RRR, No murmurs, Pulm: diminished b/l, mild b/l wheezing Abd: soft, nontender, +BS x4 Ext: no clubbing/cyanosis, 1+ b/l LE edema R>L, nontender Neuro: Alert, oriented. Encephalopathy is improving. No focal deficits Psychiatric: Pleasant mood and affect Skin: warm/dry, normal color Assessment and plan Alcohol use disorder, counseled on alcohol cessation, on multivitamin and folic acid, thiamine Severe alcohol withdrawal with delirium tremens, off Precedex and improving. *Shock: Requiring vasopressors likely 2/2 sedation meds required to control w/d symptoms. Off vasopressor and hemodynamically stable *Encephalopathy: 2/2 above, improved *Acute kidney injury with acute tubular necrosis, due to dehydration with metabolic acidosis and hyponatremia Work up: Renal US on 07/08/22: 6 mm nonobstructing stone mid calyx left kidney. Otherwise normal kidneys, bladder and prostate. Urinalysis on 07/07/22: Lu, cloudy, pH 5.0, SG 1.018, protein 100, blood 0.03, leukocyte esterase 25, urine culture negative. CT Abdomen and Pelvis without contrast on 07/07/22: There are several small nonobstructing calyceal stones in both kidneys. Largest is in the upper pole of the left kidney measures 3 mm. There is no hydronephrosis. Both ureters are decompressed and there are no stones within the ureters. Urinary bladder is decompressed and partially obscured by beam hardening artifact from bilateral hip prosthesis. There are no apparent bladder stones. Serum creatinineback to baseline 0.9. Excellent urine output Patient still has some edema will give IV Lasix 20 mg x 1 Hypokalemia, severe, 2.7. Will give p.o. 40 mEq every 2 hours x4 Hyponatremia, resolved Hypocalcemia, resolving Metabolic acidosis, improving Acute colitis. CT scan abdomen and pelvis on 07/07 showed thickening of proximal and distal large bowel with surrounding inflammation concerning for colitis. No evidence of diverticulitis. Received rocephin/flagyl. Leukocytosis resolved. Improving, no abdominal pain, stools are more formed now *UTI(Strep agalac), complicated, received ceftriaxone *Acute hypoxic respiratory failure: multifactorial> b/l PNA + right effusion + volume overload + rotund abdomen impeding thoracic cavity expansion +atelectasis. Satting 94% on room air *PNA, b/l likely Aspiration: -Improving, down to 3 L nasal cannula oxygen from 5 L yesterday. *Bilateral pleural effusion right more than left: -Thora (07/08) of 700cc, no growth on pleural fluid culture *HTN: on ARB/norvasc at home, currently on hold due to TATIANA *Macrocytosis: likely chronic etoh, check b12/folate *Morbid obesity: BMI 44 *MIGDALIA: on CPAP *Depression/Anxiety: Stable Generalized weakness, PT OT Disposition, case management to discuss Can downgrade to [employer] Portions of this chart may have been created with [employer] voice recognition software. Occasional wrong-word or sound-like substitutions may have occurred due to the inherent limitations of voice recognition software. Please read the chart carefully and recognize, using context, where the substitutions have occurred. Constitutional Vitals: Vital Signs Temp Pulse Resp BP Pulse Ox O2 Del Method O2 Flow Rate 98.8 F 80 16 121/65 94 Room Air 2 07/13/22 08:00 07/13/22 10:00 07/13/22 10:00 07/13/22 10:00 07/13/22 10:00 07/13/22 10:00 07/13/22 04:01 Period Temp Pulse Resp BP Sys/Guevara Pulse Ox O2 Del Method O2 Flow Rate Last 24 Hr 98.3 F-99.0 F 78-98 9-19 106-149/60-98 86-95 CPAP-Room Air 2- 2 Intake and Output 07/12/22 07/13/22 07/13/22 19:59 03:59 11:59 Intake Total 1580 110 530 Output Total 650 1650 1 Balance 930 -1540 529 Weight 138.034 kg Intake & Output: Intake & Output 07/12/22 07/13/22 07/13/22 19:59 03:59 11:59 Intake Total 1580 110 530 Output Total 650 1650 1 Balance 930 -1540 529 Weight 138.034 kg Intake: IV 620 50 50 Zosyn 3.375 gm In Dextrose 5% 100 50 50 in Water 50 ml @ 100 mls/hr IV Q6H RA[facility] Rx#:[id number] Potassium Chloride 40 Meq In 520 Dextrose 5% in Water 500 ml @ 130 mls/hr IV UD PRN Rx#: [id number] Oral 960 60 480 Output: Urine Catheter Amount 250 Void Amount 750 # of times incontinent of urine 1 Urine/Stool Mix 400 Stool 900 Other: Meal Dinner Breakfast Percent of Meal Consumed 100% 50% Feeding Ability Independent Independent Urine Appearance Clear Urine Color Yellow Yellow Stool Color Brown Brown Stool Consistency Liquid Liquid OBJ DATA Labs 07/13/22 09:15 07/12/22 05:44 Labs: Abnormal Lab Results 07/13/22 07/12/22 07/11/22 09:15 05:44 05:45 RBC 4.00 L Hct 38.6 L MCH 34.5 H Immature Gran % (Auto) 0.8 H Lymph % (Auto) 15.3 L [place] % (Auto) 15.5 H Lymph # (Auto) 0.97 L [place] # (Auto) 0.98 H Lymphocytes % Potassium 2.7 L* 2.9 L* Anion Gap 17.0 H BUN 32 H 65 H Creatinine 1.3 H 2.4 H Glucose 159 H 106 H Uric Acid 13.3 H Calcium 8.1 L 7.6 L Direct Bilirubin 0.3 H Lactate Dehydrogenase 226 H 07/10/22 08:32 RBC Hct MCH Immature Gran % (Auto) Lymph % (Auto) [place] % (Auto) Lymph # (Auto) [place] # (Auto) Lymphocytes % 12 L Potassium Anion Gap BUN Creatinine Glucose Uric Acid Calcium Direct Bilirubin Lactate Dehydrogenase Meds: Medications Acetaminophen (Acetaminophen 325 Mg Tablet) 650 mg PO Q6HP PRN; Protocol PRN Reason: Per Pain Protocol/Fever > 101 Last Admin: 07/12/22 14:30 Dose: 650 mg Hydrocodone Bitart/Acetaminophen (Hydrocodone/Apap 5/325mg Tablet) 1 tab PO Q4HP PRN PRN Reason: PAIN LEVEL 3-6 Last Admin: 07/13/22 07:56 Dose: 1 tab Albuterol/Ipratropium (Ipratropium/Albuterol 3 Ml Ampul.Neb) 3 ml NEB Q4HP PRN PRN Reason: Shortness Of Breath Chlordiazepoxide HCl (Chlordiazepoxide 25 Mg Capsule) 50 mg PO UD PRN; Protocol PRN Reason: Alcohol Withdrawal/Assess CIWA Last Admin: 07/10/22 19:59 Dose: 25 mg Folic Acid (Folic Acid 1 Mg Tablet) 1 mg PO DAILY [facility] Last Admin: 07/13/22 08:19 Dose: 1 mg Haloperidol Lactate (Haloperidol Lactate 5 Mg/Ml Vial) 0.5 mg IM Q2HP PRN PRN Reason: Alcohol Withdrawal/Assess CIWA Last Admin: 07/09/22 22:24 Dose: 0.5 mg Heparin Sodium (Porcine) (Heparin 5,000 Unit/Ml Vial) 5,000 unit SQ Q12 [facility] Last Admin: 07/13/22 08:19 Dose: 5,000 unit Potassium Chloride 40 meq/ (Dextrose) 520 mls @ 130 mls/hr IV UD PRN PRN Reason: Potassium < 3 Last Infusion: 07/12/22 12:33 Dose: Infused Magnesium Sulfate (Magnesium Sulfate) 2 gm in 50 mls @ 50 mls/hr IV UD PRN PRN Reason: Magnesium </= 1.6 Last Infusion: 07/08/22 11:32 Dose: Infused Sodium Chloride (Sodium Chloride 0.9%) 250 mls @ 20 mls/hr IV .[id number] [facility] Last Admin: 07/13/22 05:26 Dose: Not Given Piperacillin Sod/Tazobactam (Sod 3.375 gm/ Dextrose) 50 mls @ 100 mls/hr IV Q6H RAZ; Protocol Last Infusion: 07/13/22 06:19 Dose: Infused Dexmedetomidine HCl 400 mcg/ (Premix) 100 mls @ 6.904 mls/hr IV .[id number] PRN; Protocol PRN Reason: Sedation Norepinephrine Bitartrate 8 mg (/ Sodium Chloride) 250 mls @ 18.75 mls/hr IV Q12HP PRN; Protocol PRN Reason: Hypotension Vasopressin 20 unit/ Dextrose 100 mls @ 3 mls/hr IV Q24HP PRN; Protocol PRN Reason: Hypotension Iron Carb/Multivit/Nolan/Folic Acid (Multivit,Ther Iron,Ca,Fa & Min 1 Tablet) 1 tab PO DAILY [facility] Last Admin: 07/13/22 08:19 Dose: 1 tab Lorazepam (Lorazepam 2 Mg/Ml Vial) 0.5 mg IV Q4-6HP PRN PRN Reason: ANXIETY/SEDATION Last Admin: 07/08/22 19:16 Dose: 0.5 mg Lorazepam (Lorazepam 2 Mg/Ml Vial) 0 mg IV UD PRN; Protocol PRN Reason: Alcohol Withdrawal/Assess CIWA Last Admin: 07/09/22 06:46 Dose: 4 mg Morphine Sulfate (Morphine 4 Mg/Ml Vial) 0 mg IV Q3HP PRN PRN Reason: Pain Last Admin: 07/10/22 04:40 Dose: 1 mg Ondansetron HCl (Ondansetron 4 Mg/2 Ml Vial) 4 mg IV Q4HP PRN PRN Reason: Nausea And Vomiting Pantoprazole Sodium (Pantoprazole 40 Mg Tablet) 40 mg PO BIDAC [facility] Last Admin: 07/13/22 07:56 Dose: 40 mg Polyethylene Glycol (Polyethylene Glycol 3350 17 Gm Packet) 17 gm PO DAILYP PRN PRN Reason: Constipation Potassium Chloride (Potassium Chloride 20 Meq Tablet) 40 meq PO UD PRN PRN Reason: Potssium is 3-3.5 Potassium Chloride (Potassium Chloride 20 Meq Tablet) 40 meq PO UD PRN PRN Reason: Potassium < 3 Last Admin: 07/12/22 08:29 Dose: 40 meq Senna (Sennosides 1 Tablet) 2 tab PO DAILYP PRN PRN Reason: Constipation Sertraline HCl (Sertraline 50 Mg Tablet) 50 mg PO [facility] Last Admin: 07/12/22 20:01 Dose: 50 mg Sodium Chloride (0.9 % Sodium Chloride 10 Ml Syringe) 10 ml IV Q8 [facility] Last Admin: 07/13/22 05:26 Dose: 10 ml Thiamine HCl (Thiamine 100 Mg Tablet) 100 mg PO DAILY [facility] Last Admin: 07/13/22 08:19 Dose: 100 mg Trazodone HCl (Trazodone Hcl 100 Mg Tablet) 100 mg PO [facility] Last Admin: 07/12/22 20:01 Dose: 100 mg A/P Time Spent With Patient Time: Total time spent is greater than 50% in coordination of care (as documented) at patient's floor/unit and/or counseling patient: Critical Care Time: Yes Total Critical Care Time: 55 QUALITY VTE Deep Vein Thrombosis/Pulmonary Embolism Present on Admission: No Restraints Restraint In Place: No
--- NOTE | 2022-07-13 13:44 | Nephrology Progress Note ---
SUBJECTIVE Subjective Patient information: Note initiated : 07/13/22 at 1:41 pm Patient: Ander Ortiz 62 y/o M admitted on 07/07/22 for diverticulitis. Chief Complaint: Weakness Pertinent ROS: Weakness Constitutional Vitals: Vital Signs Temp Pulse Resp BP Pulse Ox O2 Del Method O2 Flow Rate 98.4 F 79 13 145/82 97 Room Air 2 07/13/22 12:00 07/13/22 12:00 07/13/22 12:00 07/13/22 12:00 07/13/22 12:00 07/13/22 12:00 07/13/22 04:01 Period Temp Pulse Resp BP Sys/Guevara Pulse Ox O2 Del Method O2 Flow Rate Last 24 Hr 98.3 F-99.0 F 78-101 9-19 106-149/60-98 86-97 CPAP-Room Air 2-2 Intake and Output 07/13/22 07/13/22 07/13/22 03:59 11:59 19:59 Intake Total 110 530 Output Total 1650 251 Balance -1540 279 Weight 304 lb 5 oz Intake & Output: Intake & Output 07/13/22 07/13/22 07/13/22 03:59 11:59 19:59 Intake Total 110 530 Output Total 1650 251 Balance -1540 279 Weight 304 lb 5 oz Intake: IV 50 50 Zosyn 3.375 gm In Dextrose 5% 50 50 in Water 50 ml @ 100 mls/hr IV Q6H [facility] Rx#:[id number] Oral 60 480 Output: Void Amount 750 # of times incontinent of urine 1 Urine/Stool Mix 250 Stool 900 Other: Meal Breakfast Percent of Meal Consumed 50% Feeding Ability Independent Urine Appearance Clear Urine Color Yellow Yellow Stool Size Moderate Stool Color Brown Brown Stool Consistency Liquid Loose General appearance: cooperative and no acute distress Head Head exam: Present normal inspection Eye Eye exam: Present normal appearance ENT ENT exam: Present mucous membranes moist Respiratory Respiratory exam: Absent respiratory distress Cardiovascular Cardiovascular exam: Present normal rate and rhythm GI/Abdominal GI/Abdominal exam: Present soft; Absent tenderness Extremities Exam Extremities exam: Absent joint swelling or pedal edema Neurological Exam Neurological exam: Present alert and oriented X3 Psychiatric Psychiatric exam: Present normal affect and normal mood Skin Skin exam: Present warm; Absent rash A/P Assessment and plan (1) Acute kidney injury with acute tubular necrosis: Assessment and plan: Ander Ortiz is a 62-year-old male with hypertension and remote history of ruptured diverticulitis s/p colostomy and reversal presented to ED for nausea, vomiting and abdominal pain for 3 days. He has not had a bowel movement or urine output. In ED, CT showed colitis. Creatinine was 5.3. He was given 1 L NS. He did not make any urine in ED. Nephrology consultation was requested for acute kidney injury. Acute kidney injury, suspected acute tubular necrosis due to dehydration with metabolic acidosis and hyponatremia, present on arrival, resolved. Work up: Renal US on 07/08/22: 6 mm nonobstructing stone mid calyx left kidney. Otherwise normal kidneys, bladder and prostate. Urinalysis on 07/07/22: Lu, cloudy, pH 5.0, SG 1.018, protein 100, blood 0.03, leukocyte esterase 25, urine culture pending. CT Abdomen and Pelvis without contrast on 07/07/22: There are several small nonobstructing calyceal stones in both kidneys. Largest is in the upper pole of the left kidney measures 3 mm. There is no hydronephrosis. Both ureters are decompressed and there are no stones within the ureters. Urinary bladder is decompressed and partially obscured by beam hardening artifact from bilateral hip prosthesis. There are no apparent bladder stones. Progress: Serum creatinine changed from 1.3 to 0.9 in the past 24 hours. Baseline serum creatinine: 1.0 on 02/27/22. Hypokalemia. Recommendations/Plan: Potassium being supplemented. Nephrology will sign off. Status: Acute Time Spent With Patient Time: Total time spent is greater than 50% in coordination of care (as documented) at patient's floor/unit and/or counseling patient:
[2022-07-13] MEDS ORDERED: FUROSEMIDE 20 MG/2 ML VIAL IV SCH (15:19)
[2022-07-13] MEDS: LACTOBACILLUS 1 CAPSULE PO SCH (20:13)
[2022-07-13] MEDS: traZODone HCL 100 MG TABLET PO SCH (20:13)
[2022-07-13] MEDS: SERTRALINE 50 MG TABLET PO SCH (20:14)
[2022-07-13 20:41] LABS: Blood Urea Nitrogen 13 mg/dL (8-23); Calcium 8.9 mg/dL (8.6-10.4); Carbon Dioxide 25 mmol/L (22-30); Chloride 100 mmol/L (96-108); Glomerular Filtration Rate 91; Glucose 113 mg/dL (70-105)
[2022-07-14] MEDS: 0.9 % SODIUM CHLORIDE 10 ML SYRINGE IV SCH ×3 (05:29→21:46)
[2022-07-14] MEDS: HYDROcodone/APAP 5/325MG TABLET PO PRN ×3 (06:30→19:46)
[2022-07-14] MEDS: PANTOPRAZOLE 40 MG TABLET PO SCH ×2 (07:26→16:58)
[2022-07-14] MEDS ORDERED: FUROSEMIDE 40 MG/4 ML VIAL IV SCH (07:59)
[2022-07-14] MEDS: HEPARIN 5,000 UNIT/ML VIAL SQ SCH ×2 (09:29→19:46)
[2022-07-14] MEDS: MULTIVIT,THER IRON,CA,FA & MIN 1 TABLET PO SCH (09:29)
[2022-07-14] MEDS: FOLIC ACID 1 MG TABLET PO SCH (09:29)
[2022-07-14] MEDS: THIAMINE 100 MG TABLET PO SCH (09:29)
[2022-07-14] MEDS ORDERED: POTASSIUM CHLORIDE 20 MEQ TABLET PO SCH ×2 (10:05→10:18)
[2022-07-14 14:32] LABS: Hematocrit 37.2 % (40.1-51.0); Hemoglobin 13.2 g/dL (13.7-17.5); Mean Cell Volume 98.4 fL (80.0-100.0); Mean Corpuscular HGB Conc 35.5 g/dL (31.0-36.0); Mean Platelet Volume 10.4 fL (8.8-12.5); Platelet Count 237 K/mcL (140-440); RBC 3.78 M/mcL (4.63-6.08); Red Cell Distribution Width 12.2 % (11.5-14.5); WBC 7.3 K/mcL (4.5-11.0)
[2022-07-14 14:34] LABS: Basophils # (Auto) 0.05 K/mcL (0.00-0.30); Basophils % (Auto) 0.7 % (0.0-2.0); Eosinophils # (Auto) 0.29 K/mcL (0.00-0.70); Lymphocytes # (Auto) 1.32 K/mcL (1.50-4.80); Lymphocytes % (Auto) 18.1 % (15.5-49.0); Monocytes # (Auto) 1.23 K/mcL (0.10-0.90); Monocytes % (Auto) 16.9 % (1.0-12.0); Neutrophils % (Auto) 59.5 % (38.0-78.0)
--- NOTE | 2022-07-14 14:47 | Internal Med Progress Note ---
SUBJECTIVE Subjective Patient information: Note initiated : 07/14/22 at 2:30 pm Service Date, if different from initiated Date: [] Patient: Ander Ortiz a 62 y/o M admitted on 07/07/22 for diverticulitis. Chief Complaint: [] Additional PMFSH (Level 3 Only): Mr. rOtiz is a 62 male with remote history of ruptured diverticulitis status post colostomy and reversal, heavy alcohol use, morbid obesity presented with nausea, vomiting, lower abdominal pain radiating into his chest neck and bilateral shoulder. He has not had a bowel movement or urine output. Patient felt exactly like when he had diverticulitis. Patient also reported shortness of breath over the past few days but he felt it was likely related to anxiety and pain. He was satting 93% on room air. CT scan abdomen and pelvis on 07/07 showed thickening of proximal and distal large bowel with surrounding inflammation concerning for colitis. No evidence of diverticulitis. CT did show bilateral pleural effusion right greater than left. Creatinine was 5.3 On presentation patient had minimally elevated troponin of 0.13 which trended flat. EKG was unremarkable for ischemic changes. Case was discussed with cardiology who had no acute concerns. Patient was in acute kidney injury from baseline of normal creatinine. Hyponatremia of 129. Nephrology saw patient in consultation. Renal ultrasound showed 6 mm nonobstructing stone and mild calyx left kidney. Otherwise normal kidneys bladder and prostate. Patient has obstructive sleep apnea and has been using his CPAP. On 07/08 patient became agitated and impulsive, family reported patient is a heavy drinker and his symptoms are consistent with alcohol withdrawal. He was started on CIWA protocol. He went into severe alcohol withdrawal with DTs despite receiving Ativan through the night. He was started on Precedex gtt. Patient blood pressure dropped and he was on vasopressors. Patient was started on IV fluids also received Lasix per nephrology. Patient received bicarb and his metabolic acidosis improved. Patient underwent successful thoracentesis on 07/08 yielding 700 cc of pleural fluid. CT chest on 07/10 showed large consolidated right lower lobe and moderate consolidated left lower lobe infiltrates and moderate bilateral pleural effusions. Doppler ultrasound bilateral lower extremity showed no evidence of DVT. 07/12. Patient is feeling much better. He was sitting up in the chair. He still has a Decker catheter in with good urine output. Serum creatinine improved to 1.3 close to his baseline. He has low potassium which will be corrected. His breathing is improving. He has been weaned down to 3 L nasal cannula oxygen from 5 L before. He reports he does not use oxygen at home. Nephrology saw patient and discontinued bicarb. 07/13. Slept well, feeling better, reported a week ago he was vomiting violently and his right side of his throat still hurts but overall improving. Serum crea tinine improved to 0.9, potassium is still very low at 2.7. This will be replaced aggressively. He has been weaned off supplemental oxygen and satting 94% on room air. Legs have still got some swelling for which he will be getting IV Lasix. Disposition is still unclear, case management will be discussing options with him. Patient had bilateral ultrasound Doppler lower extremity performed which showed no evidence of DVT. Can downgrade to MedSurg 07/14 no acute events overnight. He ambulated with PT. Eating and drinking well. Still some lower extremity edema, improved from before. Potassium improved to 3.2 after supplementation but still low. Hemoglobin 13.2. Will replace potassium. Will give IV Lasix x 1. Review of Systems: denies fever/chills/nausea/vomiting/chest or abdominal pain/diarrhea. Denies visual changes, headache Denies any rashes No arthralgia or myalgias PHYSICAL EXAM General: Alert and awake, sitting up in bed, in no acute distress Eyes/N/T: EOMI, no scleral icterus, Head/Neck: neck supple, full ROM, CV: RRR, No murmurs, Pulm: diminished b/l, mild b/l wheezing Abd: soft, nontender, +BS x4 Ext: no clubbing/cyanosis, 1+ b/l LE edema R>L, nontender Neuro: Alert, oriented. Encephalopathy is improving. No focal deficits Psychiatric: Pleasant mood and affect Skin: warm/dry, normal color Assessment and plan Alcohol use disorder, counseled on alcohol cessation, on multivitamin and folic acid, thiamine Severe alcohol withdrawal with delirium tremens, was on CIWA protocol, off Precedex and improving. *Shock: Requiring vasopressors likely 2/2 sedation meds required to control w/d symptoms. Off vasopressor and hemodynamically stable *Encephalopathy: 2/2 above, improved *Acute kidney injury with acute tubular necrosis, due to dehydration with metabolic acidosis and hyponatremia Work up: Renal US on 07/08/22: 6 mm nonobstructing stone mid calyx left kidney. Otherwise normal kidneys, bladder and prostate. Urinalysis on 07/07/22: Lu, cloudy, pH 5.0, SG 1.018, protein 100, blood 0.03, leukocyte esterase 25, urine culture negative. CT Abdomen and Pelvis without contrast on 07/07/22: There are several small nonobstructing calyceal stones in both kidneys. Largest is in the upper pole of the left kidney measures 3 mm. There is no hydronephrosis. Both ureters are decompressed and there are no stones within the ureters. Urinary bladder is decompressed and partially obscured by beam hardening artifact from bilateral hip prosthesis. There are no apparent bladder stones. Serum creatinineback to baseline 0.9. Excellent urine output Patient still has some edema will give IV Lasix 40 mg x 1 Hypokalemia, severe, 2.7. Will give p.o. 40 mEq every 2 hours x2 Hyponatremia, resolved Hypocalcemia, resolving Metabolic acidosis, improving Acute colitis. CT scan abdomen and pelvis on 07/07 showed thickening of proximal and distal large bowel with surrounding inflammation concerning for colitis. No evidence of diverticulitis. Received rocephin/flagyl. Leuk ocytosis resolved. Improving, no abdominal pain, stools are more formed now *UTI(Strep agalac), complicated, received ceftriaxone *Acute hypoxic respiratory failure: multifactorial> b/l PNA + right effusion + volume overload + rotund abdomen impeding thoracic cavity expansion +atelectasis. Satting 94% on room air *PNA, b/l likely Aspiration: -Improving, weaned down to RA sat 93%. Previously on 5 L. *Bilateral pleural effusion right more than left: -Thora (07/08) of 700cc, no growth on pleural fluid culture *HTN: on ARB/norvasc at home, currently on hold due to TATIANA *Macrocytosis: likely chronic etoh, b12/folate WNL *Morbid obesity: BMI 44 *MIGDALIA: on CPAP *Depression/Anxiety: Stable Generalized weakness, PT OT Disposition, case management to discuss Portions of this chart may have been created with [employer] voice recognition software. Occasional wrong-word or sound-like substitutions may have occurred due to the inherent limitations of voice recognition software. Please read the chart carefully and recognize, using context, where the substitutions have occurred. Constitutional Vitals: Vital Signs Temp Pulse Resp BP Pulse Ox O2 Del Method O2 Flow Rate 98.3 F 94 H 14 130/73 94 Room Air 2 07/14/22 08:10 07/14/22 09:55 07/14/22 09:55 07/14/22 09:55 07/14/22 09:55 07/14/22 08:00 07/14/22 04:00 Period Temp Pulse Resp BP Sys/Guevara Pulse Ox O2 Del Method O2 Flow Rate Last 24 Hr 98.2 F-98.6 F 77-102 11-21 106-137/73-87 92-97 CPAP-Room Air 2-2 Intake and Output 07/14/22 07/14/22 07/14/22 03:59 11:59 19:59 Intake Total 240 0 120 Output Total 1025 1180 300 Balance -785 -1180 -180 Weight 135.794 kg Intake & Output: Intake & Output 07/14/22 07/14/22 07/14/22 03:59 11:59 19:59 Intake Total 240 0 120 Output Total 1025 1180 300 Balance -785 -1180 -180 Weight 135.794 kg Intake: Oral 240 0 120 Output: Void Amount 1025 1180 Urine/Stool Mix 300 Other: Meal ice cream Urine Appearance Clear Clear Urine Color Yellow Pale Stool Size Moderate Stool Color Brown Stool Consistency Liquid # Voids 1 # Bowel Movements 1 OBJ DATA Labs 07/13/22 09:15 07/13/22 19:53 Labs: Abnormal Lab Results 07/13/22 07/13/22 07/13/22 19:53 09:15 09:15 RBC 4.00 L Hct 38.6 L MCH 34.5 H Immature Gran % (Auto) 0.8 H Lymph % (Auto) 15.3 L Noble % (Auto) 15.5 H Lymph # (Auto) 0.97 L Noble # (Auto) 0.98 H Potassium 3.2 L 2.7 L* BUN Creatinine Glucose 113 H 118 H Calcium 07/12/22 05:44 RBC Hct MCH Immature Gran % (Auto) Lymph % (Auto) Noble % (Auto) Lymph # (Auto) Noble # (Auto) Potassium 2.7 L* BUN 32 H Creatinine 1.3 H Glucose 159 H Calcium 8.1 L Meds: Medications Acetaminophen (Acetaminophen 325 Mg Tablet) 650 mg PO Q6HP PRN; Protocol PRN Reason: Per Pain Protocol/Fever > 101 Last Admin: 07/12/22 14:30 Dose: 650 mg Hydrocodone Bitart/Acetaminophen (Hydrocodone/Apap 5/325mg Tablet) 1 tab PO Q4HP PRN PRN Reason: PAIN LEVEL 3-6 Last Admin: 07/14/22 06:30 Dose: 1 tab Albuterol/Ipratropium (Ipratropium/Albuterol 3 Ml Ampul.Neb) 3 ml NEB Q4HP PRN PRN Reason: Shortness Of Breath Folic Acid (Folic Acid 1 Mg Tablet) 1 mg PO DAILY [facility] Last Admin: 07/14/22 09:29 Dose: 1 mg Haloperidol Lactate (Haloperidol Lactate 5 Mg/Ml Vial) 0.5 mg IM Q2HP PRN PRN Reason: Alcohol Withdrawal/Assess CIWA Last Admin: 07/09/22 22:24 Dose: 0.5 mg Heparin Sodium (Porcine) (Heparin 5,000 Unit/Ml Vial) 5,000 unit SQ Q12 [facility] Last Admin: 07/14/22 09:29 Dose: 5,000 unit Potassium Chloride 40 meq/ (Dextrose) 520 mls @ 130 mls/hr IV UD PRN PRN Reason: Potassium < 3 Last Infusion: 07/12/22 12:33 Dose: Infused Magnesium Sulfate (Magnesium Sulfate) 2 gm in 50 mls @ 50 mls/hr IV UD PRN PRN Reason: Magnesium </= 1.6 Last Infusion: 07/08/22 11:32 Dose: Infused Iron Carb/Multivit/Skiver Blockers/Folic Acid (Multivit,Ther Iron,Ca,Fa & Min 1 Tablet) 1 tab PO DAILY [facility] Last Admin: 07/14/22 09:29 Dose: 1 tab Lactobacillus Rhamnosus (Lactobacillus 1 Capsule) 1 cap PO QHS [facility] Last Admin: 07/13/22 20:13 Dose: 1 cap Lorazepam (Lorazepam 2 Mg/Ml Vial) 0.5 mg IV Q4-6HP PRN PRN Reason: ANXIETY/SEDATION Last Admin: 07/08/22 19:16 Dose: 0.5 mg Ondansetron HCl (Ondansetron 4 Mg/2 Ml Vial) 4 mg IV Q4HP PRN PRN Reason: Nausea And Vomiting Pantoprazole Sodium (Pantoprazole 40 Mg Tablet) 40 mg PO BIDAC [facility] Last Admin: 07/14/22 07:26 Dose: 40 mg Polyethylene Glycol (Polyethylene Glycol 3350 17 Gm Packet) 17 gm PO DAILYP PRN PRN Reason: Constipation Potassium Chloride (Potassium Chloride 20 Meq Tablet) 40 meq PO UD PRN PRN Reason: Potssium is 3-3.5 Last Admin: 07/14/22 08:09 Dose: 40 meq Sertraline HCl (Sertraline 50 Mg Tablet) 50 mg PO HS [facility] Last Admin: 07/13/22 20:14 Dose: 50 mg Sodium Chloride (0.9 % Sodium Chloride 10 Ml Syringe) 10 ml IV Q8 [facility] Last Admin: 07/14/22 14:18 Dose: 10 ml Thiamine HCl (Thiamine 100 Mg Tablet) 100 mg PO DAILY [facility] Last Admin: 07/14/22 09:29 Dose: 100 mg Trazodone HCl (Trazodone Hcl 100 Mg Tablet) 100 mg PO [facility] Last Admin: 07/13/22 20:13 Dose: 100 mg A/P Time Spent With Patient Time: Total time spent is greater than 50% in coordination of care (as documented) at patient's floor/unit and/or counseling patient: Initial: Total time with patient: 55 - 74 minutes QUALITY VTE Deep Vein Thrombosis/Pulmonary Embolism Present on Admission: No Restraints Restraint In Place: No
[2022-07-14 15:04] LABS: ALT/SGPT 19 U/L (<40); AST/SGOT 20 U/L (<40); Albumin 3.4 gm/dL (3.2-5.2); Albumin/Globulin Ratio 1.2 (1.0-2.3); Alkaline Phosphatase 87 U/L (39-117); Bilirubin,Total 0.7 mg/dL (0.1-1.0); Blood Urea Nitrogen 10 mg/dL (8-23); Calcium 8.5 mg/dL (8.6-10.4); Carbon Dioxide 26 mmol/L (22-30); Chloride 101 mmol/L (96-108); Globulin 2.8 gm/dL (2.2-3.7); Glomerular Filtration Rate 91; Glucose 108 mg/dL (70-105)
[2022-07-14] MEDS: LACTOBACILLUS 1 CAPSULE PO SCH (19:47)
[2022-07-14] MEDS: traZODone HCL 100 MG TABLET PO SCH (19:47)
[2022-07-14] MEDS: SERTRALINE 50 MG TABLET PO SCH (19:47)
[2022-07-15] MEDS: HYDROcodone/APAP 5/325MG TABLET PO PRN (03:18)
[2022-07-15] MEDS: 0.9 % SODIUM CHLORIDE 10 ML SYRINGE IV SCH (05:00)
[2022-07-15 06:26] LABS: Basophils # (Auto) 0.04 K/mcL (0.00-0.30); Basophils % (Auto) 0.6 % (0.0-2.0); Eosinophils # (Auto) 0.26 K/mcL (0.00-0.70); Eosinophils % (Auto) 3.7 % (0.0-7.0); Hemoglobin 13.5 g/dL (13.7-17.5); Lymphocytes # (Auto) 1.75 K/mcL (1.50-4.80); Lymphocytes % (Auto) 24.9 % (15.5-49.0); Mean Cell Volume 96.2 fL (80.0-100.0); Mean Corpuscular HGB Conc 35.5 g/dL (31.0-36.0); Mean Platelet Volume 10.4 fL (8.8-12.5); Monocytes # (Auto) 1.05 K/mcL (0.10-0.90); Monocytes % (Auto) 14.9 % (1.0-12.0); Platelet Count 223 K/mcL (140-440); RBC 3.95 M/mcL (4.63-6.08)
[2022-07-15 06:48] LABS: Blood Urea Nitrogen 8 mg/dL (8-23); Calcium 8.3 mg/dL (8.6-10.4); Carbon Dioxide 26 mmol/L (22-30); Chloride 102 mmol/L (96-108); Glomerular Filtration Rate 95; Glucose 125 mg/dL (70-105)
[2022-07-15] MEDS: PANTOPRAZOLE 40 MG TABLET PO SCH (06:58)
[2022-07-15] MEDS: MULTIVIT,THER IRON,CA,FA & MIN 1 TABLET PO SCH (08:10)
[2022-07-15] MEDS: FOLIC ACID 1 MG TABLET PO SCH (08:10)
[2022-07-15] MEDS: THIAMINE 100 MG TABLET PO SCH (08:10)
[2022-07-15] MEDS: HEPARIN 5,000 UNIT/ML VIAL SQ SCH (08:10)
[2022-07-15] MEDS ORDERED: FUROSEMIDE 40 MG/4 ML VIAL IV SCH (08:28)
--- NOTE | 2022-07-15 08:28 | Discharge Summary ---
Discharge Provider Provider IMPORTANT FOLLOW-UP INFORMATION FOR PCP: Patient information: Note initiated : 07/15/22 at 8:13 am Service Date, if different from initiated Date: [] Patient: Ander Ortiz 62 y/o M admitted on 07/07/22 for diverticulitis. Chief Complaint: [] Date of admission: 07/07/22 18:37 Discharge date: 07/15/22 Primary care physician: JUAN Osborne Consults: 07/07/22 14:56 Consult to Physician [CONS] Stat Comment: Consulting Provider: Samir Brush Reason For Exam: Physician to Consult 07/07/22 15:25 Consult to Physician [CONS] Stat Comment: Consulting Provider: Danisha Pires Reason For Exam: Physician to Consult 07/07/22 16:08 Consult to Physician [CONS] Stat Comment: Consulting Provider: Estephania Salazar Cardiology Reason For Exam: Physician to Consult COURSE Hospital Course Hospital course: Mr. Ortiz is a 62 male with remote history of ruptured diverticulitis status post colostomy and reversal, heavy alcohol use, morbid obesity presented with nausea, vomiting, lower abdominal pain radiating into his chest neck and bilateral shoulder. He has not had a bowel movement or urine output. Patient felt exactly like when he had diverticulitis. Patient also reported shortness of breath over the past few days but he felt it was likely related to anxiety and pain. He was satting 93% on room air. CT scan abdomen and pelvis on 07/07 showed thickening of proximal and distal large bowel with surrounding inflammation concerning for colitis. No evidence of diverticulitis. CT did show bilateral pleural effusion right greater than left. Creatinine was 5.3. On presentation patient had minimally elevated troponin of 0.13 which trended flat. EKG was unremarkable for ischemic changes. Case was discussed with cardiology who had no acute concerns. Patient was in acute kidney injury Cr 5.3 up from baseline of normal creatinine. Hyponatremia of 129. Nephrology saw patient in consultation. Renal ultrasound showed 6 mm nonobstructing stone and mild calyx left kidney. Otherwise normal kidneys bladder and prostate. Nephrology started patient on IV Lasix and bicarb for metabolic acidosis. Patient peripheral edema and metabolic acidosis slowly improved On 07/08 patient became agitated and impulsive, family reported patient is a heavy drinker and his presentation was consistent with alcohol withdrawal. He was started on CIWA protocol. He went into severe alcohol withdrawal with DTs despite receiving Ativan through the night. He was started on Precedex gtt. Patient blood pressure dropped requiring vasopressors. Patient underwent successful thoracentesis on 07/08 yielding 700 cc of pleural fluid. CT chest on 07/10 showed large consolidated right lower lobe and moderate consolidated left lower lobe infiltrates and moderate bilateral pleural effusions. Doppler ultrasound bilateral lower extremity showed no evidence of DVT. Patient initially was requiring up to 5 L nasal cannula oxygen, this con tinue to improve slowly and eventually he was weaned off supplemental oxygen with sats in mid 90s on room air. He was very hypokalemic and potassium was replaced aggressively. Bicarbonate drip was discontinued by nephrology since acidosis improved and serum creatinine returned to baseline. Patient still had some lower extremity edema, he received IV Lasix with improvement. No evidence of DVT bilateral lower extremity. Patient ambulated with physical therapy and started getting his strength back. On the day of discharge patient was feeling close to his baseline. He was satting well on room air. His electrolytes and renal functions are stable. Patient reports he does get mild bilateral lower extremity edema which is intermittent. He will be given a prescription of Lasix 20 mg every other day and his renal functions and electrolytes will be monitored as outpatient, depending on the response his diuretic therapy will be tailored as outpatient. He will be discharged home today. PHYSICAL EXAM General: Alert and awake, sitting up in bedside chair Eyes/N/T: EOMI, no scleral icterus, Head/Neck: neck supple, full ROM, CV: RRR, No murmurs, Pulm: Chest is mainly clear bilaterally, satting 94% on room air Abd: soft, nontender, +BS x4 Ext: no clubbing/cyanosis, 1+ bilateral lower extremity edema Neuro: Alert, oriented. Encephalopathy is improving. No focal deficits Psychiatric: Pleasant mood and affect Skin: warm/dry, normal color Assessment and plan Alcohol use disorder, counseled on alcohol cessation, on multivitamin and folic acid, thiamine Severe alcohol withdrawal with delirium tremens, failed CIWA protocol, required Precedex. Now back to baseline *Shock: Requiring vasopressors likely 2/2 sedation meds required to control w/d symptoms. Off vasopressor and hemodynamically stable *Encephalopathy: 2/2 above, resolved *Acute kidney injury with acute tubular necrosis, due to dehydration with metabolic acidosis and hyponatremia Work up: Renal US on 07/08/22: 6 mm nonobstructing stone mid calyx left kidney. Otherwise normal kidneys, bladder and prostate. Urinalysis on 07/07/22: Lu, cloudy, pH 5.0, SG 1.018, protein 100, blood 0.03, leukocyte esterase 25, urine culture negative. CT Abdomen and Pelvis without contrast on 07/07/22: There are several small nonobstructing calyceal stones in both kidneys. Largest is in the upper pole of the left kidney measures 3 mm. There is no hydronephrosis. Both ureters are decompressed and there are no stones within the ureters. Urinary bladder is decompressed and partially obscured by beam hardening artifact from bilateral hip prosthesis. There are no apparent bladder stones. Serum creatinine 5.3>4.3>4.4>3.8>2.4>0.8back to baseline. Excellent urine output Patient still has some edema will give IV Lasix 40 mg x 1 Hypokalemia, resolved Hyponatremia, resolved Hypocalcemia, resolving Metabolic acidosis, resolved Acute colitis. CT scan abdomen and pelvis on 07/07 showed thickening of proximal and distal large bowel with surrounding inflammation concerning for colitis. No evidence of diverticulitis. Received rocephin/flagyl. Leukocytosis resolved. Improving, no abdominal pain, stools are formed. *UTI(Strep agalac), complicated, received ceftriaxone *Acute hypoxic respiratory failure: multifactorial> b/l PNA + right effusion + volume overload + obese abdomen impeding thoracic cavity expansion +atelectasis. Satting 94% on room air *PNA, b/l likely Aspiration: -Improving, weaned down to RA sat 93%. Previously on 5 L. *Bilateral pleural effusion right more than left: -Thora (07/08) of 700cc, no growth on pleural fluid culture *HTN: on ARB/norvasc at home, currently on hold due to TATIANA *Macrocytosis: likely chronic etoh, b12/folate WNL *Morbid obesity: BMI 44 *MIGDALIA: on CPAP *Depression/Anxiety: Stable Generalized weakness, PT OT Portions of this chart may have been created with [email or web address] voice recognition software. Occasional wrong-word or sound-like substitutions may have occurred due to the inherent limitations of voice recognition software. Please read the chart carefully and recognize, using context, where the substitutions have occurred. Discharge diagnosis: Acute kidney injury, ATN, delirium tremens, sepsis, pneumonia, UTI Time Spent with Patient Time attestation: Total time spent providing and/or coordinating discharge services: Time spent: Greater than 30 minutes EXAM Constitutional Vitals: Temp Pulse Resp BP Pulse Ox O2 Del Method O2 Flow Rate 99.9 F H 81 13 102/61 94 Room Air 2 07/15/22 04:00 07/15/22 04:00 07/15/22 04:00 07/15/22 04:00 07/15/22 04:00 07/15/22 04:00 07/14/22 20:07 Discharge Data Data Completed and Pending Labs on day of discharge: Labs from last 24 hours 07/15/22 07/15/22 07/14/22 05:35 05:35 14:05 WBC 7.0 RBC 3.95 L Hgb 13.5 L Hct 38.0 L MCV 96.2 MCH 34.2 H MCHC 35.5 RDW 12.0 Plt Count 223 MPV 10.4 Immature Gran % (Auto) 0.9 H Neut % (Auto) 55.0 Lymph % (Auto) 24.9 Amador % (Auto) 14.9 H Eos % (Auto) 3.7 Baso % (Auto) 0.6 Lymph # (Auto) 1.75 Amador # (Auto) 1.05 H Eos # (Auto) 0.26 Baso # (Auto) 0.04 Immature Gran # 0.06 H Absolute Neutrophils 3.87 Sodium 138 136 Potassium 3.4 4.0 Chloride 102 101 Carbon Dioxide 26 26 Anion Gap 10.0 9.0 BUN 8 10 Creatinine 0.8 0.9 GFR Calculation 95 91 Glucose 125 H 108 H Calcium 8.3 L 8.5 L Total Bilirubin 0.7 AST 20 ALT 19 Alkaline Phosphatase 87 Total Protein 6.2 Albumin 3.4 Globulin 2.8 Albumin/Globulin Ratio 1.2 07/14/22 14:05 WBC 7.3 RBC 3.78 L Hgb 13.2 L Hct 37.2 L MCV 98.4 MCH 34.9 H MCHC 35.5 RDW 12.2 Plt Count 237 MPV 10.4 Immature Gran % (Auto) 0.8 H Neut % (Auto) 59.5 Lymph % (Auto) 18.1 Amador % (Auto) 16.9 H Eos % (Auto) 4.0 Baso % (Auto) 0.7 Lymph # (Auto) 1.32 L [place] # (Auto) 1.23 H Eos # (Auto) 0.29 Baso # (Auto) 0.05 Immature Gran # 0.06 H Absolute Neutrophils 4.34 Sodium Potassium Chloride Carbon Dioxide Anion Gap BUN Creatinine GFR Calculation Glucose Calcium Total Bilirubin AST ALT Alkaline Phosphatase Total Protein Albumin Globulin Albumin/Globulin Ratio Preliminary micro results at discharge 07/10/22 08:28 Blood Culture - Preliminary Blood 07/10/22 08:21 Blood Culture - Preliminary Blood Discharge Plan Patient/Caregiver Discharge Instructions Activity: as per physical therapy Diet: Cardiac Activity Restrictions/Additional Instructions: Repeat BMP in 1 week to follow-up on kidney function and electrolytes since you have been started on diuretic therapy. Follow-up with primary care provider Prescriptions: New Thera M Plus (ferrous fumarat) 9 mg iron-400 mcg Tablet 1 tab PO DAILY 30 Days Qty: 30 0RF pantoprazole 40 mg Tablet,Delayed Release (Dr/Ec) 40 mg PO DAILY Qty: 60 0RF thiamine mononitrate (vit B1) 100 mg Tablet 100 mg PO DAILY 30 Days Qty: 30 0RF furosemide 20 mg tablet 20 mg PO .every other day Qty: 14 0RF potassium chloride 20 mEq tablet extended release 20 meq PO .every other day Qty: 14 0RF Rx Instructions: With lasix Continued (DME) C-pap and supplies See Rx Instructions .Route .MEDSUPPLY Qty: 1 0RF Rx Instructions: As directed triamcinolone acetonide 0.1 % cream 1 applic topical BID Qty: 30 0RF trazodone 100 mg tablet 100 mg PO QHS PRN (Reason: for insomnia) Qty: 90 0RF peg 3350-electrolytes [Golytely] 236-22.74-6.74 -5.86 gram recon soln 240 ml PO Q10M Qty: 4000 0RF acetaminophen [Tylenol] 325 mg Tablet 650 mg PO Q6HP PRN (Reason: Per Pain Protocol/Fever > 101) Qty: 60 0RF Probiotic Digestive Care 20 billion cell capsule 1 cell PO QHS Qty: 30 0RF Rx Instructions: Take 1 capsule by mouth at bedtime, at least 2 hours after your last daily dose of antibiotic, for 30 days. sertraline 50 mg tablet 50 mg PO QHS Changed losartan 100 mg tablet 25 mg PO QDAY Qty: 30 1RF Discontinued amlodipine 10 mg tablet 10 mg PO QDAY Qty: 90 1RF Follow Up Plan Follow up with: Gunjan Gupta ARNP [Primary Care Provider] - (1 week) Patient Disposition: Home, Self-Care Overall status at discharge: patient is back to baseline Discharge Orders: Discharge Order (Routine); Ordered 07/15/22 Ordered By: Kelvin MANCILLA VTE Deep Vein Thrombosis/Pulmonary Embolism Present on Admission: No
[2022-07-15] MEDS ORDERED: POTASSIUM CHLORIDE 20 MEQ TABLET PO SCH (08:31)
== END 2022-07-15 10:35 | disposition home or self-care (01) | DRG 682 ==
LOC: ED 12:00 → ICU 18:37
PROVIDERS: ADMIT Internal Medicine; ATTEND Internal Medicine

== ENCOUNTER 2023-01-28 18:39 | Observation (INO) ==
[2023-01-28 19:51] LABS: Hematocrit 37.9 % (40.1-51.0); Hemoglobin 13.1 g/dL (13.7-17.5); Mean Cell Volume 100.5 fL (80.0-100.0); Mean Corpuscular HGB Conc 34.6 g/dL (31.0-36.0); Mean Platelet Volume 10.1 fL (8.8-12.5); Platelet Count 147 K/mcL (140-440); RBC 3.77 M/mcL (4.63-6.08); Red Cell Distribution Width 13.6 % (11.5-14.5); WBC 4.5 K/mcL (4.5-11.0)
[2023-01-28 20:05] LABS: Alcohol,Blood 0.222 gm/dL (<0.010)
[2023-01-28 20:07] LABS: Basophils % (Manual) 1 % (0-2); Eosinophils % (Manual) 4 % (0-7); Hypochromasia 1+ (None Seen); Lymphocytes % 42 % (15-49); Macrocytosis 1+ (None Seen); Monocytes % (Manual) 11 % (1-12); Platelet Estimate NORMAL (Normal); RBC Morphology ABNORMAL (Normal); Reactive Lymphocytes 2 % (0-2); Segmented Neutrophils % 40 % (38-78)
[2023-01-28 20:11] LABS: ALT/SGPT 23 U/L (<40); AST/SGOT 26 U/L (<40); Albumin 3.5 gm/dL (3.2-5.2); Albumin/Globulin Ratio 1.5 (1.0-2.3); Alkaline Phosphatase 139 U/L (39-117); Bilirubin,Total 0.5 mg/dL (0.1-1.0); Blood Urea Nitrogen 14 mg/dL (8-23); Calcium 8.9 mg/dL (8.6-10.4); Carbon Dioxide 21 mmol/L (22-30); Chloride 107 mmol/L (96-108); Globulin 2.4 gm/dL (2.2-3.7); Glomerular Filtration Rate 49; Glucose 101 mg/dL (70-105)
[2023-01-28 21:01] LABS: Appearance,Urine CLEAR (Clear); Bilirubin,Urine Negative (Negative); Color,Urine YELLOW; Culture Indicated,Urine No; Glucose,Urine (UA) Negative (Negative); Ketones,Urine Negative (Negative); Leukocyte Esterase,Urine Negative /uL (Negative); Nitrate,Urine Negative (Negative); Protein,Urine Negative (Negative); Specific Gravity,Urine 1.008 (1.000-1.035); Urine Blood Negative (Negative); Urobilinogen,Urine Negative
[2023-01-28 21:10] LABS: Amphetamine Screen,Urine None detected; Barbiturate Screen,Urine None detected; Benzodiazepines Screen,Urine None detected; Cannabinoid Screen,Urine None detected; Cocaine Screen,Urine None detected; Opiate Screen,Urine None detected; Oxycodone, Urine Screen None detected; Phencyclidine Screen,Urine None detected
[2023-01-28] MEDS ORDERED: 0.9 % SODIUM CHLORIDE 1,000 ML IV ONE (22:04)
[2023-01-28 22:11] LABS: Acetaminophen < 5.0 ug/mL; Salicylate < 0.3 mg/dL
[2023-01-29 01:09] LABS: Alcohol,Blood 0.101 gm/dL (<0.010)
[2023-01-29] MEDS ORDERED: 0.9 % SODIUM CHLORIDE 1,000 ML IV ONE (02:20)
[2023-01-29 06:08] LABS: Blood Urea Nitrogen 21 mg/dL (8-23); Calcium 8.1 mg/dL (8.6-10.4); Carbon Dioxide 21 mmol/L (22-30); Chloride 110 mmol/L (96-108); Glomerular Filtration Rate 31; Glucose 102 mg/dL (70-105)
[2023-01-29] MEDS ORDERED: SENNOSIDES 1 TABLET PO PRN (09:26)
[2023-01-29] MEDS ORDERED: LACTULOSE 20 GM/30 ML ORAL.SOL PO PRN (09:26)
[2023-01-29] MEDS ORDERED: IPRATROPIUM/ALBUTEROL 3 ML AMPUL.NEB NEB PRN (09:26)
[2023-01-29] MEDS ORDERED: ONDANSETRON 4 MG/2 ML VIAL IV PRN (09:26)
[2023-01-29] MEDS ORDERED: ACETAMINOPHEN (PP) 325MG TABLET (#50) PO PRN (10:16)
[2023-01-29] MEDS: 0.9 % SODIUM CHLORIDE 1,000 ML IV SCH ×3 (10:31→23:51)
[2023-01-29] MEDS: ACETAMINOPHEN 325 MG TABLET PO PRN ×2 (10:31→20:24)
[2023-01-29] MEDS: 0.9 % SODIUM CHLORIDE 10 ML SYRINGE IV SCH ×2 (13:20→20:22)
[2023-01-29] MEDS ORDERED: LORazepam 1 MG TABLET PO PRN (20:14)
[2023-01-29] MEDS: HEPARIN 5,000 UNIT/ML VIAL SQ SCH (20:18)
[2023-01-29] MEDS: SERTRALINE 100 MG TABLET PO SCH (20:21)
[2023-01-29] MEDS: LACTOBACILLUS 1 CAPSULE PO SCH (20:22)
[2023-01-29] MEDS: DOCUSATE SODIUM 100 MG CAPSULE PO SCH (20:22)
[2023-01-29] MEDS: NALTREXONE HCL 50 MG TABLET PO SCH (20:22)
[2023-01-30] MEDS: 0.9 % SODIUM CHLORIDE 10 ML SYRINGE IV SCH ×3 (05:49→21:08)
[2023-01-30 06:24] LABS: Basophils # (Auto) 0.03 K/mcL (0.00-0.30); Basophils % (Auto) 0.6 % (0.0-2.0); Eosinophils # (Auto) 0.23 K/mcL (0.00-0.70); Eosinophils % (Auto) 4.7 % (0.0-7.0); Hemoglobin 13.6 g/dL (13.7-17.5); Lymphocytes # (Auto) 1.24 K/mcL (1.50-4.80); Lymphocytes % (Auto) 25.2 % (15.5-49.0); Mean Cell Volume 102.3 fL (80.0-100.0); Mean Platelet Volume 10.5 fL (8.8-12.5); Monocytes % (Auto) 10.2 % (1.0-12.0); Neutrophils % (Auto) 59.1 % (38.0-78.0); Platelet Count 129 K/mcL (140-440); RBC 3.91 M/mcL (4.63-6.08); Red Cell Distribution Width 13.6 % (11.5-14.5); WBC 4.9 K/mcL (4.5-11.0)
[2023-01-30] MEDS: 0.9 % SODIUM CHLORIDE 1,000 ML IV SCH ×3 (06:49→21:07)
[2023-01-30 07:03] LABS: ALT/SGPT 20 U/L (<40); AST/SGOT 20 U/L (<40); Albumin 3.2 gm/dL (3.2-5.2); Albumin/Globulin Ratio 1.2 (1.0-2.3); Alkaline Phosphatase 104 U/L (39-117); Blood Urea Nitrogen 25 mg/dL (8-23); Calcium 8.3 mg/dL (8.6-10.4); Carbon Dioxide 22 mmol/L (22-30); Chloride 110 mmol/L (96-108); Globulin 2.7 gm/dL (2.2-3.7); Glomerular Filtration Rate 32; Glucose 102 mg/dL (70-105)
[2023-01-30] MEDS: hydrALAZINE 20 MG/ML VIAL IV PRN ×2 (08:18→12:06)
[2023-01-30] MEDS: HEPARIN 5,000 UNIT/ML VIAL SQ SCH ×2 (08:19→21:07)
[2023-01-30] MEDS: PANTOPRAZOLE 40 MG TABLET PO SCH (08:20)
[2023-01-30] MEDS: DOCUSATE SODIUM 100 MG CAPSULE PO SCH ×2 (08:20→21:07)
[2023-01-30] MEDS ORDERED: COLCHICINE 0.6 MG CAPSULE PO PRN (09:32)
[2023-01-30] MEDS: amLODIPine 10 MG TABLET PO SCH (10:43)
[2023-01-30] MEDS: ACETAMINOPHEN 325 MG TABLET PO PRN (17:58)
[2023-01-30] MEDS: LACTOBACILLUS 1 CAPSULE PO SCH (21:07)
[2023-01-30] MEDS: SERTRALINE 100 MG TABLET PO SCH (21:07)
[2023-01-30] MEDS: NALTREXONE HCL 50 MG TABLET PO SCH (21:08)
[2023-01-31] MEDS: 0.9 % SODIUM CHLORIDE 1,000 ML IV SCH ×2 (03:30→10:27)
[2023-01-31] MEDS: 0.9 % SODIUM CHLORIDE 10 ML SYRINGE IV SCH (06:38)
[2023-01-31 07:02] LABS: Basophils # (Auto) 0.03 K/mcL (0.00-0.30); Basophils % (Auto) 0.7 % (0.0-2.0); Eosinophils # (Auto) 0.27 K/mcL (0.00-0.70); Eosinophils % (Auto) 6.3 % (0.0-7.0); Hematocrit 38.8 % (40.1-51.0); Lymphocytes # (Auto) 1.13 K/mcL (1.50-4.80); Lymphocytes % (Auto) 26.5 % (15.5-49.0); Mean Cell Volume 104.3 fL (80.0-100.0); Mean Corpuscular HGB Conc 33.5 g/dL (31.0-36.0); Mean Platelet Volume 10.9 fL (8.8-12.5); Monocytes # (Auto) 0.52 K/mcL (0.10-0.90); Monocytes % (Auto) 12.2 % (1.0-12.0); Neutrophils % (Auto) 53.8 % (38.0-78.0); Platelet Count 136 K/mcL (140-440); RBC 3.72 M/mcL (4.63-6.08); Red Cell Distribution Width 13.9 % (11.5-14.5); WBC 4.3 K/mcL (4.5-11.0)
[2023-01-31] MEDS: ACETAMINOPHEN 325 MG TABLET PO PRN (07:45)
[2023-01-31] MEDS: HEPARIN 5,000 UNIT/ML VIAL SQ SCH (07:45)
[2023-01-31] MEDS: amLODIPine 10 MG TABLET PO SCH (07:46)
[2023-01-31] MEDS: PANTOPRAZOLE 40 MG TABLET PO SCH (07:46)
[2023-01-31 08:17] LABS: ALT/SGPT 17 U/L (<40); AST/SGOT 19 U/L (<40); Albumin 3.1 gm/dL (3.2-5.2); Albumin/Globulin Ratio 1.2 (1.0-2.3); Alkaline Phosphatase 93 U/L (39-117); Bilirubin,Total 1.1 mg/dL (0.1-1.0); Blood Urea Nitrogen 16 mg/dL (8-23); Calcium 8.4 mg/dL (8.6-10.4); Carbon Dioxide 20 mmol/L (22-30); Chloride 111 mmol/L (96-108); Globulin 2.6 gm/dL (2.2-3.7); Glomerular Filtration Rate 49; Glucose 89 mg/dL (70-105)
[2023-01-31] MEDS: DOCUSATE SODIUM 100 MG CAPSULE PO SCH (10:27)
== END 2023-01-31 12:50 | disposition home or self-care (01) ==
LOC: ICU 18:39 → ED 18:39 → ICU 01-29 09:00
PROVIDERS: ADMIT Internal Medicine; ATTEND Internal Medicine